=== PATIENT | male | born 1970 | race Hispanic/Latino ===

== ENCOUNTER 2017-10-07 07:07 | Inpatient (IN) | payer OTHER ==
[2017-10-07 07:59] LABS: Basophils # (Auto) 0.1 K/mm3 (0.0-0.1); Basophils % (Auto) 0.7 % (0.0-1.8); Eosinophils # (Auto) 0.1 K/mm3 (0.0-0.4); Eosinophils % (Auto) 0.8 % (0.0-4.3); Hematocrit 39.4 % (35.5-45.6); Hemoglobin 13.3 gm/dl (11.8-15.2); Lymphocytes # (Auto) 1.4 K/mm3 (1.2-5.4); Mean Corpuscular HGB Conc 34 % (32-34); Mean Corpuscular Hemoglobin 31 pg (28-32); Mean Corpuscular Volume 92 fl (84-94); Platelet Count 329 K/mm3 (140-440); Red Cell Distribution Width 13.8 % (13.2-15.2)
[2017-10-07 08:13] LABS: Calcium 7.2 mg/dL (8.4-10.2)
[2017-10-07 08:42] LABS: Bilirubin,Urine NEG (Negative); Blood,Urine SM (Negative); Color,Urine Yellow (Yellow); Hyaline Casts,Urine 55 /LPF; Mucus,Urine 2+ /HPF; Nitrite,Urine NEG (Negative); Sperm,Urine 1+ /HPF (NP); Urobilinogen,Urine < 2.0 mg/dL (<2.0)
[2017-10-07 08:54] LABS: Protein,Urine >500 mg/dL (Negative)
[2017-10-07] MEDS ORDERED: APRESOLINE IV ONE (08:56)
[2017-10-07] MEDS ORDERED: D50W (25GM) Syringe IV ONE (08:59)
--- NOTE | 2017-10-07 09:02 | Emergency Department Report ---
HPI - General Chief Complaint: Extremity Injury, Lower Time Seen by Provider: 10/07/17 08:31 - HPI HPI: The patient's 46-year-old male with diabetes, presents for evaluation of pain to toes of the left foot. The patient reports constant and severe pain to toes of the left foot for the past 2 weeks, worsened with weightbearing, throbbing in quality, and associated with paresthesia and loss of color and darkening of toes of the left foot. He denies, injury to the toes, fever, chills, night sweats, purulent drainage or discharge. ED Past Medical Hx - Past Medical History Previous Medical History?: Yes Hx Diabetes: Yes - Surgical History Past Surgical History?: Yes Additional Surgical History: Left ankle surgery - Social History Smoking Status: Current Every Day Smoker Substance Use Type: Prescribed ED Review of Systems ROS: Stated complaint: LT FOOT PAIN Other details as noted in HPI Constitutional: denies: fever ENT: denies: throat or neck pain Respiratory: denies: cough, shortness of breath Cardiovascular: denies: chest pain Endocrine: denies unexplained weight loss or gain Gastrointestinal: denies: abdominal pain, nausea Genitourinary: denies: dysuria Musculoskeletal: left 4th and 5th digit pain and parasthesia denies: leg swelling Skin: denies: rash Neurological: denies: headache Hematological/Lymphatic: denies: easy bleeding or easy bruising Psych: denies sadness or hopelessness Physical Exam - Physical Exam Vital Signs: Vital Signs 10/07/17 10/07/17 10/07/17 04:08 04:16 04:30 Temperature Pulse Rate 96 H 90 91 H Respiratory 9 L 10 L 11 L Rate Blood Pressure 175/94 175/94 175/94 Blood Pressure [Right] O2 Sat by Pulse 100 92 Oximetry 10/07/17 10/07/17 10/07/17 04:46 05:00 05:16 Temperature Pulse Rate 99 H 90 88 Respiratory 10 L 9 L 11 L Rate Blood Pressure 175/94 175/94 173/91 Blood Pressure [Right] O2 Sat by Pulse 100 100 Oximetry 10/07/17 10/07/17 10/07/17 05:30 05:46 06:00 Temperature Pulse Rate 90 89 92 H Respiratory 11 L 10 L 11 L Rate Blood Pressure 173/91 173/91 188/98 Blood Pressure [Right] O2 Sat by Pulse 100 100 100 Oximetry 10/07/17 10/07/17 10/07/17 06:16 07:41 07:59 Temperature 98.5 F Pulse Rate 89 86 Respiratory 11 L 16 Rate Blood Pressure 187/100 175/96 218/109 Blood Pressure [Right] O2 Sat by Pulse 95 Oximetry 10/07/17 10/07/17 10/07/17 08:00 08:20 08:24 Temperature 98.2 F Pulse Rate 86 Respiratory 18 Rate Blood Pressure 213/105 158/75 Blood Pressure 157/75 [Right] O2 Sat by Pulse 100 Oximetry Physical Exam: General: well-nourished, well-developed, no acute distress Head: Normocephalic, atraumatic Eyes: normal sclera ENT: Mucous membranes are pale and dry Neck: No neck stiffness, no cervical adenopathy Respiratory: Breath sounds equal bilaterally, no wheezing, rales, or rhonchi Cardio: S1 and S2 present, no murmurs, rubs, gallops, capillary refill is delayed Abdomen: Normoactive bowel sounds, soft abdomen, no rigidity, no guarding or rebound tenderness Musc: Severe guarding and rigidity of the left fourth and fifth toes present, no capillary refill and sensation loss present to the toes as well, no purulent drainage or discharge Skin: No rash Neuro: no facial drooping, normal speech Psych: Normal affect ED Course Vital Signs 10/07/17 10/07/17 10/07/17 04:08 04:16 04:30 Temperature Pulse Rate 96 H 90 91 H Respiratory 9 L 10 L 11 L Rate Blood Pressure 175/94 175/94 175/94 Blood Pressure [Right] O2 Sat by Pulse 100 92 Oximetry 10/07/17 10/07/17 10/07/17 04:46 05:00 05:16 Temperature Pulse Rate 99 H 90 88 Respiratory 10 L 9 L 11 L Rate Blood Pressure 175/94 175/94 173/91 Blood Pressure [Right] O2 Sat by Pulse 100 100 Oximetry 10/07/17 10/07/17 10/07/17 05:30 05:46 06:00 Temperature Pulse Rate 90 89 92 H Respiratory 11 L 10 L 11 L Rate Blood Pressure 173/91 173/91 188/98 Blood Pressure [Right] O2 Sat by Pulse 100 100 100 Oximetry 10/07/17 10/07/17 10/07/17 06:16 07:41 07:59 Temperature 98.5 F Pulse Rate 89 86 Respiratory 11 L 16 Rate Blood Pressure 187/100 175/96 218/109 Blood Pressure [Right] O2 Sat by Pulse 95 Oximetry 10/07/17 10/07/17 10/07/17 08:00 08:20 08:24 Temperature 98.2 F Pulse Rate 86 Respiratory 18 Rate Blood Pressure 213/105 158/75 Blood Pressure 157/75 [Right] O2 Sat by Pulse 100 Oximetry ED Medical Decision Making - Lab Data Result diagrams: 10/07/17 07:46 10/07/17 07:46 - Medical Decision Making The patient was seen and examined by myself. The patient is placed on a ground crew supervisor and continuous pulse ox. On initial evaluation, the patient was found to be in no distress. Evaluation orders were placed. The patient is given pain medicine and IV hydralazine for treatment of elevated blood pressure. Lab results revealed low glucose of 51, elevated BUN of 35, elevated creatinine 1.5, BUN/creatinine ratio greater than 2:1, consistent with exam findings of dehydration.. The patient was given a by mouth challenge. Repeat Accu-Chek reveals persistence of hypoglycemia. The patient given an amp of D50 but the patient remained with hypoglycemia. The on-call hospitalist service was contacted. They agreed to admit the patient for further treatment and close monitoring. The ED admit order was placed. The patient was admitted in guarded condition. Critical care attestation.: If time is entered above; I have spent that time in minutes in the direct care of this critically ill patient, excluding procedure time. ED Disposition Clinical Impression: Hypertensive urgency, Hypoglycemia, Toe necrosis, Acute pain of left foot, Gangrene of toe of left foot Disposition: OP ADMIT IP TO THIS HOSP Is pt being admited?: Yes Does the pt Need Aspirin: Yes Condition: Fair Referrals: PRIMARY CARE [Primary Care Provider] - 3-5 Days Time of Disposition: 08:58
[2017-10-07] MEDS ORDERED: BABY ASPIRIN PO ONE (09:05)
[2017-10-07 09:31] LABS: INR 0.82 (0.87-1.13)
[2017-10-07 09:32] LABS: Partial Thromboplastin Time 31.8 Sec. (24.2-36.6)
[2017-10-07] MEDS ORDERED: ZOFRAN IV PRN (10:27)
[2017-10-07] MEDS ORDERED: D50W (25GM) Syringe IV PRN (10:28)
--- NOTE | 2017-10-07 10:46 | History and Physical Report ---
History of Present Illness Date of examination: 10/07/17 Date of admission: 10/07/17 09:04 Chief complaint: Left foot pains Mother at bedside History of present illness: Patient is a 46-year-old man with a history of insulin-dependent diabetes mellitus (first visit here), he takes 20 units in the morning/20 units in the evening of 70/30 insulin, hypertension (not on any medications) and tobacco dependency who presents ti [facility] with worsen severe throbbing constant left foot pains x 1 day but started 2-3 weeks ago, radiating up the leg, worse with weightbearing without any relieving factors associated with loss of sensation except to cold floors. This all started when he changed to a different shoe and it was rubbing against his small left toe. Patient denies any fevers, chills, nausea vomiting abdominal pain severe headaches. The pain is so intense , he has lost his appetite; therefore, his sugars on presentation was 51. He has no pcp. Past Medical History: Yes, dm and htn Surgical History: Left ankle surgery Social History: Current Every Day Smoker 2-3 packs a day (counseling against this done), he denies alcohol or drugs Family History: HTN, mother had heart attack in her late 40s, father with DM, ROS: Constitutional: denies: fever, +loss of appetite ENT: denies: throat or neck pain Respiratory: denies: cough, shortness of breath Cardiovascular: denies: chest pain Endocrine: denies unexplained weight loss or gain Gastrointestinal: denies: abdominal pain, nausea Genitourinary: denies: dysuria Musculoskeletal: leg swelling, left foot pain Skin: stomach rash and leg rash, "looks like ezcema" Neurological: denies: headache Hematological/Lymphatic: denies: easy bleeding or easy bruising Psych: denies sadness or hopelessness, SI/HI Medications and Allergies Allergies Allergy/AdvReac Type Severity Reaction Status Date / Time No Known Allergies Allergy Unverified 10/07/17 07:41 Active Meds: Active Medications Acetaminophen (Tylenol) 325 mg PO Q6H PRN PRN Reason: Pain, Mild (1-3) Acetaminophen/Hydrocodone Bitart ([place] 5/325) 1 each PO Q4H PRN PRN Reason: Pain, Moderate (4-6) Dextrose (D50w (25gm) Syringe) 50 ml IV PRN PRN PRN Reason: Hypoglycemia Heparin Sodium (Porcine) (Heparin) 5,000 unit SUB-Q Q12HR [facility] Dextrose/Sodium Chloride (D5/0.45ns) 1,000 mls @ 100 mls/hr IV DIRECT TANIYA Insulin Aspart (Novolog) 0 units SUB-Q Q4H TANIYA PRN Reason: Protocol Stop: 10/07/17 22:00 Morphine Sulfate (Morphine) 2 mg IV Q4H PRN PRN Reason: Pain , Severe (7-10) Ondansetron HCl (Zofran) 4 mg IV Q4H PRN PRN Reason: Nausea And Vomiting Pantoprazole Sodium (Protonix) 40 mg PO QDAY TANIYA Zolpidem Tartrate (Ambien) 5 mg PO QHS PRN PRN Reason: Sleep Exam - Physical Exam Narrative exam: GEN: WDWN, unkempt man, NAD, AWAKE, ALERT, ORIENTATED x 3 HEENT: NCAT, EOMI, PERRL, OP Clear NECK: supple, no adenopathy, no thyromegaly, no JVD CVS/HEART: RRR, NORMAL S1S2, NO JVD, pulses present bilaterally, diminished left petal pulses CHEST/LUNGS: CTA B, Symmetrical chest expansion, good air entry bilaterally GI/Abdomen: soft, NTND, good bowel sounds, no guarding or rebound /Bladder: no suprapubic tenderness, no CVA or paraspinal tenderness EXT/Skin: ble leg edema, coin plague on stomach, chronic venous stasis legs, left toes gangrene 5th and 4th, other necrotic tips on the rest of left toes also, red, warm midfoot MSK: FROM x 4 Neuro: CN 2-12 grossly intact, significant sensory deficits legs, absent ankle jerk reflex bilateral Psych: calm - Constitutional Vitals: Temp Pulse Resp BP Pulse Ox 98.2 F 86 18 197/107 100 10/07/17 08:24 10/07/17 09:20 10/07/17 08:55 10/07/17 09:20 10/07/17 08:24 Results - Labs CBC & Chem 7: 10/07/17 07:46 10/07/17 07:46 Labs: Abnormal lab results 10/07/17 10/07/17 10/07/17 Range/Units 07:46 07:46 08:00 Howard % (Auto) 12.0 H (0.0-7.3) % Howard # 1.0 H (0.0-0.8) K/mm3 PT (12.2-14.9) Sec. INR (0.87-1.13) Carbon Dioxide 31 H (22-30) mmol/L BUN 35 H (9-20) mg/dL Glucose 51 L (75-100) mg/dL POC Glucose (70-105) Calcium 7.2 L (8.4-10.2) mg/dL Urine WBC (Auto) 10.0 H (0.0-6.0) /HPF 10/07/17 10/07/17 10/07/17 Range/Units 08:33 09:05 09:05 Howard % (Auto) (0.0-7.3) % Howard # (0.0-0.8) K/mm3 PT 11.7 L (12.2-14.9) Sec. INR 0.82 L (0.87-1.13) Carbon Dioxide (22-30) mmol/L BUN (9-20) mg/dL Glucose (75-100) mg/dL POC Glucose 56 L 66 L (70-105) Calcium (8.4-10.2) mg/dL Urine WBC (Auto) (0.0-6.0) /HPF Assessment and Plan Patient is a 46-year-old man with a history of insulin-dependent diabetes mellitus (first visit here), he takes 20 units in the morning/20 units in the evening of 70/30 insulin, hypertension (not on any medications) and tobacco dependency who presents ti [facility] with worsen severe throbbing constant left foot pains x 1 day but started 2-3 weeks ago, radiating up the leg, worse with weightbearing without any relieving factors associated with loss of sensation except to cold floors. This all started when he changed to a different shoe and it was rubbing against his small left toe. Patient denies any fevers, chills, nausea vomiting abdominal pain severe headaches. The pain is so intense , he has lost his appetite; therefore, his sugars on presentation was 51. He has no pcp. -Severe PAD associated with DM with gangrene: consulted Vascular -Left foot cellulitis:, start iv vanc and get blood cultures -Uncontrolled IDDM with hypoglycemia: stop insulin, use ssi, start diet -Cr. is 1.5 without known baseline, suspect SHARLENE due to vasomotor nephropathy: treat with ivf, follow and monitor closely -Tobacco dependance: counseling done -DVT/GI prophylaxis: sq heparin and protonix full code
[2017-10-07] MEDS ORDERED: NOVOLOG SUB-Q SCH (11:00)
[2017-10-07] MEDS: NORVASC PO SCH (11:12)
[2017-10-07] MEDS ORDERED: MORPHINE IV PRN (12:02)
[2017-10-07] MEDS: D5/0.45NS 1,000 ML IV SCH (13:58)
[2017-10-07] MEDS: UNASYN/NS 1.5 GM/50 ML 1.5 GM/50 ML BAG IV SCH ×2 (13:59→21:14)
[2017-10-07] MEDS: HEPARIN SUB-Q SCH (13:59)
[2017-10-07] MEDS: PROTONIX PO SCH (13:59)
[2017-10-07] MEDS: NOVOLOG SUB-Q SCH ×3 (15:06→21:18)
--- NOTE | 2017-10-07 16:30 | Consultation ---
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 He was admitted by the hospitalist service for diabetes with peripheral vascular occlusive disease cellulitis and gangrene and we were asked to see him in consultation with recommendations for therapy Past History Past Medical History: diabetes, hypertension Past Surgical History: No surgical history Social history: lives with family, smoking Family history: diabetes, hypertension Medications and Allergies Allergies Allergy/AdvReac Type Severity Reaction Status Date / Time No Known Allergies Allergy Unverified 10/07/17 07:41 Active Meds: Active Medications Acetaminophen (Tylenol) 325 mg PO Q6H PRN PRN Reason: Pain, Mild (1-3) Acetaminophen/Hydrocodone Bitart ([place] 5/325) 1 each PO Q4H PRN PRN Reason: Pain, Moderate (4-6) Amlodipine Besylate (Norvasc) 10 mg PO QDAY [facility] Last Admin: 10/07/17 11:12 Dose: 10 mg Dextrose (D50w (25gm) Syringe) 50 ml IV PRN PRN PRN Reason: Hypoglycemia Heparin Sodium (Porcine) (Heparin) 5,000 unit SUB-Q Q12H [facility] Last Admin: 10/07/17 13:59 Dose: 5,000 unit Hydralazine HCl (Apresoline) 10 mg IV Q4H PRN PRN Reason: Blood Pressure Dextrose/Sodium Chloride (D5/0.45ns) 1,000 mls @ 100 mls/hr IV DIRECT [facility] Last Admin: 10/07/17 13:58 Dose: 100 mls/hr Ampicillin Sodium/Sulbactam Sodium (Unasyn/Ns 1.5 Gm/50 Ml) 1.5 gm in 50 mls @ 100 mls/hr IV Q6H [facility] PRN Reason: Protocol Last Admin: 10/07/17 13:59 Dose: 100 mls/hr Insulin Aspart (Novolog) 0 units SUB-Q Q4HR [facility] PRN Reason: Protocol Last Admin: 10/07/17 15:06 Dose: Not Given Morphine Sulfate (Morphine) 2 mg IV Q4H PRN PRN Reason: Pain , Severe (7-10) Ondansetron HCl (Zofran) 4 mg IV Q4H PRN PRN Reason: Nausea And Vomiting Pantoprazole Sodium (Protonix) 40 mg PO QDAY TANIYA Last Admin: 10/07/17 13:59 Dose: 40 mg Zolpidem Tartrate (Ambien) 5 mg PO QHS PRN PRN Reason: Sleep Review of Systems Constitutional: fever, fatigue, malaise, poor appetite, chronic pain Ears, nose, mouth and throat: dental pain Cardiovascular: claudication (left calf that fairly long distances), high blood pressure, decreased exercise tolerance Respiratory: cough, dyspnea on exertion Musculoskeletal: leg numbness/tingling, gait dysfunction Integumentary: blisters, darkening of skin, foot/leg ulcers Neurological: numbness Exam - Physical Exam Narrative exam: He is a slender slightly disheveled 46-year-old male in no acute distress. HEENT examination shows anicteric sclera. He is edentulous. Neck is soft and supple. There are bilateral carotid bruits versus transmitted heart sounds noted. Examination is normal. Upper extremity pulses are equal. There is no tobacco staining in the intertriginous areas. Lungs are clear to auscultation and percussion. Cardiac examination reveals a regular rate and rhythm. There may be a very soft systolic murmur but it does not appear consistent with the auscultative examination in his neck. Abdomen is scaphoid without hepatosplenomegaly. No abdominal aneurysm. Pulses are present. Popliteal pulses are present on the right. None on the left. A faint dorsalis pedis may be palpable on the right. No pedal pulses are palpable on the left. He has dry gangrene of his fifth digit on the left foot the distal one third of the fourth digit and perioperative brachial areas on the second digit all on the left foot. Is no odor. There is no drainage. Some modest redness in the forefoot is noted. - Constitutional Vitals: Temp Pulse Resp BP Pulse Ox 98.7 F 79 20 170/88 94 10/07/17 12:46 10/07/17 12:46 10/07/17 12:46 10/07/17 12:46 10/07/17 12:46 Results - Labs CBC & Chem 7: 10/07/17 07:46 10/07/17 07:46 Labs: Abnormal lab results 10/07/17 10/07/17 10/07/17 Range/Units 07:46 07:46 08:00 [place] % (Auto) 12.0 H (0.0-7.3) % [place] # 1.0 H (0.0-0.8) K/mm3 PT (12.2-14.9) Sec. INR (0.87-1.13) Carbon Dioxide 31 H (22-30) mmol/L BUN 35 H (9-20) mg/dL Glucose 51 L (75-100) mg/dL POC Glucose (70-105) Calcium 7.2 L (8.4-10.2) mg/dL Urine WBC (Auto) 10.0 H (0.0-6.0) /HPF 10/07/17 10/07/17 10/07/17 Range/Units 08:33 09:05 09:05 [place] % (Auto) (0.0-7.3) % [place] # (0.0-0.8) K/mm3 PT 11.7 L (12.2-14.9) Sec. INR 0.82 L (0.87-1.13) Carbon Dioxide (22-30) mmol/L BUN (9-20) mg/dL Glucose (75-100) mg/dL POC Glucose 56 L 66 L (70-105) Calcium (8.4-10.2) mg/dL Urine WBC (Auto) (0.0-6.0) /HPF Assessment and Plan - Patient Problems (1) Gangrene of toe of left foot Current Visit: Yes Status: Acute Plan to address problem: The dry gangrene is clearly been present longer than 2 weeks and he has nonpalpable pulses. He will need angiography and possible revascularization. We'll need to hydrate name of any contrast-induced nephropathy. Also needs antibiotics for potential cellulitic changes in his foot. Also obtain noninvasive studies to document the level of vascular compromise. (2) Carotid artery bruit Onset Date: Unknown Current Visit: Yes Status: Chronic Qualifiers: Laterality: bilateral Qualified Code(s): R09.89 - Other specified symptoms and signs involving the circulatory and respiratory systems Plan to address problem: He has bilateral carotid bruits and is at high risk for carotid artery disease with his hypertension, diabetes, and heavy tobacco use. Carotid duplex will be ordered. (3) Tobacco abuse Onset Date: ~10/02/87 Current Visit: Yes Status: Chronic Plan to address problem: He may benefit from tobacco cessation counseling and possible nicotine patch
[2017-10-07] MEDS: NORCO 5/325 PO PRN (17:06)
[2017-10-07] MEDS: TYLENOL PO PRN (21:21)
[2017-10-07] MEDS ORDERED: AMBIEN PO PRN (22:00)
[2017-10-08] MEDS: HEPARIN SUB-Q SCH ×2 (01:54→12:11)
[2017-10-08] MEDS: UNASYN/NS 1.5 GM/50 ML 1.5 GM/50 ML BAG IV SCH ×4 (01:54→20:21)
[2017-10-08] MEDS: APRESOLINE IV PRN ×2 (02:29→06:26)
[2017-10-08] MEDS: D5/0.45NS 1,000 ML IV SCH (06:19)
[2017-10-08] MEDS: NOVOLOG SUB-Q SCH ×4 (06:19→22:28)
[2017-10-08 07:40] LABS: Hemoglobin 13.2 gm/dl (11.8-15.2); Mean Corpuscular HGB Conc 34 % (32-34); Mean Corpuscular Hemoglobin 31 pg (28-32); Mean Corpuscular Volume 91 fl (84-94); Platelet Count 299 K/mm3 (140-440); Red Blood Count 4.29 M/mm3 (3.65-5.03); Red Cell Distribution Width 13.6 % (13.2-15.2)
[2017-10-08 07:52] LABS: Calcium 6.9 mg/dL (8.4-10.2); Chol/HDL Ratio 6.55 %; INR 0.88 (0.87-1.13)
[2017-10-08 07:53] LABS: Partial Thromboplastin Time 33.7 Sec. (24.2-36.6)
[2017-10-08] MEDS: PROTONIX PO SCH (12:11)
[2017-10-08] MEDS: NORVASC PO SCH (12:11)
[2017-10-08] MEDS: NORCO 5/325 PO PRN (12:15)
[2017-10-08] MEDS ORDERED: D50W (25GM) Syringe IV PRN (12:52)
--- NOTE | 2017-10-08 12:52 | Progress Note ---
Assessment and Plan Assessment and plan: Patient is a 46-year-old man with a history of insulin-dependent diabetes mellitus (first visit here), he takes 20 units in the morning/20 units in the evening of 70/30 insulin, hypertension (not on any medications) and tobacco dependency who [facility] with worsen severe throbbing constant left foot pains x 1 day but started 2-3 weeks ago, radiating up the leg, worse with weightbearing without any relieving factors associated with loss of sensation except to cold floors. This all started when he changed to a different shoe and it was rubbing against his small left toe. Patient denies any fevers, chills, nausea vomiting abdominal pain severe headaches. The pain is so intense , he has lost his appetite; therefore, his sugars on presentation was 51. He has no pcp. -Severe PAD associated with DM with gangrene: consulted Vascular -Left foot cellulitis:, start iv vanc and get blood cultures -Uncontrolled IDDM with hypoglycemia, resolved hypoglycemia, now hyperglycemic: start ssi -Cr. is 1.5 without known baseline, suspect SHARLENE due to vasomotor nephropathy: treat with ivf, follow and monitor closely -Tobacco dependance: counseling done -DVT/GI prophylaxis: sq heparin and protonix full code per Dr. Christensen: Vascular surgeon: "(1) Gangrene of toe of left foot Current Visit: Yes Status: Acute Plan to address problem: The dry gangrene is clearly been present longer than 2 weeks and he has nonpalpable pulses. He will need angiography and possible revascularization. We'll need to hydrate name of any contrast-induced nephropathy. Also needs antibiotics for potential cellulitic changes in his foot. Also obtain noninvasive studies to document the level of vascular compromise. (2) Carotid artery bruit Onset Date: Unknown Current Visit: Yes Status: Chronic Qualifiers: Laterality: bilateral Qualified Code(s): R09.89 - Other specified symptoms and signs involving the circulatory and respiratory systems Plan to address problem: He has bilateral carotid bruits and is at high risk for carotid artery disease with his hypertension, diabetes, and heavy tobacco use. Carotid duplex will be ordered. (3) Tobacco abuse Onset Date: ~10/02/87 Current Visit: Yes Status: Chronic Plan to address problem: He may benefit from tobacco cessation counseling and possible nicotine patch" History Interval history: Patient was seen and examined. Follow-up on current diagnosis. Overnight uneventful. Patient denies any chest pain, shortness breath, nausea/vomiting or severe headaches. Imaging, nursing note, chart, labs and old chart reviewed. Discussed with patient. Daughter at bedside, called me a Rapper when I first entered the room. Hospitalist Physical - Physical exam Narrative exam: GEN: WDWN, unkempt man, NAD, AWAKE, ALERT, ORIENTATED x 3 HEENT: NCAT, EOMI, PERRL, OP Clear NECK: supple, no adenopathy, no thyromegaly, no JVD CVS/HEART: RRR, NORMAL S1S2, NO JVD, pulses present bilaterally, diminished left petal pulses CHEST/LUNGS: CTA B, Symmetrical chest expansion, good air entry bilaterally GI/Abdomen: soft, NTND, good bowel sounds, no guarding or rebound /Bladder: no suprapubic tenderness, no CVA or paraspinal tenderness EXT/Skin: ble leg edema, coin plague on stomach, chronic venous stasis legs, left toes gangrene 5th and 4th, other necrotic tips on the rest of left toes also, red, warm midfoot MSK: FROM x 4 Neuro: CN 2-12 grossly intact, significant sensory deficits legs, absent ankle jerk reflex bilateral Psych: calm - Constitutional Vitals: Temp Pulse Resp BP Pulse Ox 98.6 F 95 H 20 168/84 94 10/08/17 12:35 10/08/17 12:35 10/08/17 12:35 10/08/17 12:35 10/08/17 12:35 Results - Labs CBC & Chem 7: 10/08/17 06:51 10/08/17 06:51 Labs: Laboratory Last Values WBC 9.0 K/mm3 (4.5-11.0) 10/08/17 06:51 RBC 4.29 M/mm3 (3.65-5.03) 10/08/17 06:51 Hgb 13.2 gm/dl (11.8-15.2) 10/08/17 06:51 Hct 39.0 % (35.5-45.6) 10/08/17 06:51 MCV 91 fl (84-94) 10/08/17 06:51 MCH 31 pg (28-32) 10/08/17 06:51 MCHC 34 % (32-34) 10/08/17 06:51 RDW 13.6 % (13.2-15.2) 10/08/17 06:51 Plt Count 299 K/mm3 (140-440) 10/08/17 06:51 Lymph % (Auto) 17.0 % (13.4-35.0) 10/07/17 07:46 [place] % (Auto) 12.0 % (0.0-7.3) H 10/07/17 07:46 Eos % (Auto) 0.8 % (0.0-4.3) 10/07/17 07:46 Baso % (Auto) 0.7 % (0.0-1.8) 10/07/17 07:46 Lymph # 1.4 K/mm3 (1.2-5.4) 10/07/17 07:46 [place] # 1.0 K/mm3 (0.0-0.8) H 10/07/17 07:46 Eos # 0.1 K/mm3 (0.0-0.4) 10/07/17 07:46 Baso # 0.1 K/mm3 (0.0-0.1) 10/07/17 07:46 Seg Neutrophils % 69.5 % (40.0-70.0) 10/07/17 07:46 Seg Neutrophils # 5.6 K/mm3 (1.8-7.7) 10/07/17 07:46 PT 12.4 Sec. (12.2-14.9) 10/08/17 06:51 INR 0.88 (0.87-1.13) 10/08/17 06:51 APTT 33.7 Sec. (24.2-36.6) 10/08/17 06:51 Sodium 139 mmol/L (137-145) 10/08/17 06:51 Potassium 4.0 mmol/L (3.6-5.0) 10/08/17 06:51 Chloride 99.6 mmol/L (98-107) 10/08/17 06:51 Carbon Dioxide 27 mmol/L (22-30) 10/08/17 06:51 Anion Gap 16 mmol/L 10/08/17 06:51 BUN 39 mg/dL (9-20) H 10/08/17 06:51 Creatinine 1.4 mg/dL (0.8-1.5) 10/08/17 06:51 Estimated GFR 54 ml/min 10/08/17 06:51 BUN/Creatinine Ratio 28 % 10/08/17 06:51 Glucose 254 mg/dL (75-100) H 10/08/17 06:51 POC Glucose 247 (70-105) H 10/08/17 06:22 Calcium 6.9 mg/dL (8.4-10.2) L 10/08/17 06:51 Magnesium 2.00 mg/dL (1.7-2.3) 10/08/17 06:51 Troponin T < 0.010 ng/mL (0.00-0.029) 10/07/17 17:58 Triglycerides 304 mg/dL (2-149) H 10/08/17 06:51 Cholesterol 262 mg/dL (50-199) H 10/08/17 06:51 LDL Cholesterol Direct 162 mg/dL (50-130) H 10/08/17 06:51 HDL Cholesterol 40 mg/dL (40-59) 10/08/17 06:51 Cholesterol/HDL Ratio 6.55 % 10/08/17 06:51 TSH 4.270 mlU/mL (0.270-4.200) H 10/08/17 06:51 Urine Color Yellow (Yellow) 10/07/17 08:00 Urine Turbidity Cloudy (Clear) 10/07/17 08:00 Urine pH 5.0 (5.0-7.0) 10/07/17 08:00 Ur Specific [place] 1.029 (1.003-1.030) 10/07/17 08:00 Urine Protein >500 mg/dL (Negative) 10/07/17 08:00 Urine Glucose (UA) 50 mg/dL (Negative) 10/07/17 08:00 Urine Ketones Neg mg/dL (Negative) 10/07/17 08:00 Urine Blood Sm (Negative) 10/07/17 08:00 Urine Nitrite Neg (Negative) 10/07/17 08:00 Urine Bilirubin Neg (Negative) 10/07/17 08:00 Urine Urobilinogen < 2.0 mg/dL (<2.0) 10/07/17 08:00 Ur Leukocyte Esterase Neg (Negative) 10/07/17 08:00 Urine WBC (Auto) 10.0 /HPF (0.0-6.0) H 10/07/17 08:00 Urine RBC (Auto) 17.0 /HPF (0.0-6.0) 10/07/17 08:00 U Epithel Cells (Auto) 4.0 /HPF (0-13.0) 10/07/17 08:00 Hyaline Casts 55 /LPF 10/07/17 08:00 Urine Mucus 2+ /HPF 10/07/17 08:00 Urine Sperm 1+ /HPF ([employer]) 10/07/17 08:00 Blood Type A POSITIVE 10/07/17 09:05 Antibody Screen Negative 10/07/17 09:05
--- NOTE | 2017-10-08 14:55 | Progress Note ---
Assessment and Plan - Patient Problems (1) Gangrene of toe of left foot Current Visit: Yes Status: Acute Plan to address problem: he needs angiogram. Had made nothing by mouth and scheduled in the [employer] for tomorrow. Possible intervention anticipate left superficial femoral artery occlusion. (2) Carotid artery bruit Onset Date: Unknown Current Visit: Yes Status: Chronic Qualifiers: Laterality: bilateral Qualified Code(s): R09.89 - Other specified symptoms and signs involving the circulatory and respiratory systems Plan to address problem: Medical management (3) Tobacco abuse Onset Date: ~10/02/87 Current Visit: Yes Status: Chronic Subjective Date of service: 10/08/17 Interval history: No new complaints had noninvasive studies done yesterday. Objective - Exam Narrative Exam: Dry gangrene unchanged. None invasive studies show left superficial femoral artery occlusion. 50-60% internal carotid artery stenosis bilaterally. - Constitutional Vitals: Vital Signs - 12hr 10/08/17 10/08/17 10/08/17 04:27 06:26 07:55 Temperature 98.5 F 98.7 F Pulse Rate 85 101 H Respiratory 18 18 Rate Blood Pressure 195/97 195/97 127/75 Blood Pressure [Right] O2 Sat by Pulse 94 93 Oximetry 10/08/17 10/08/17 10/08/17 08:57 11:00 12:35 Temperature 98.7 F 98.6 F Pulse Rate 98 H 92 H 95 H Respiratory 20 20 Rate Blood Pressure Blood Pressure 127/75 168/84 [Right] O2 Sat by Pulse 92 94 Oximetry - Labs CBC & Chem 7: 10/08/17 06:51 10/08/17 06:51 Labs: Abnormal lab results 10/07/17 10/07/17 10/08/17 Range/Units 14:44 21:20 06:22 BUN (9-20) mg/dL Glucose (75-100) mg/dL POC Glucose 123 H 170 H 247 H (70-105) Calcium (8.4-10.2) mg/dL Triglycerides (2-149) mg/dL Cholesterol (50-199) mg/dL LDL Cholesterol Direct (50-130) mg/dL TSH (0.270-4.200) mlU/mL Free T4 (0.76-1.46) ng/dL 10/08/17 10/08/17 10/08/17 Range/Units 06:51 06:51 13:23 BUN 39 H (9-20) mg/dL Glucose 254 H (75-100) mg/dL POC Glucose (70-105) Calcium 6.9 L (8.4-10.2) mg/dL Triglycerides 304 H (2-149) mg/dL Cholesterol 262 H (50-199) mg/dL LDL Cholesterol Direct 162 H (50-130) mg/dL TSH 4.270 H (0.270-4.200) mlU/mL Free T4 0.70 L (0.76-1.46) ng/dL
[2017-10-09] MEDS: UNASYN/NS 1.5 GM/50 ML 1.5 GM/50 ML BAG IV SCH ×4 (01:06→20:36)
[2017-10-09 06:13] LABS: Hematocrit 36.1 % (35.5-45.6); Hemoglobin 11.9 gm/dl (11.8-15.2); Mean Corpuscular HGB Conc 33 % (32-34); Mean Corpuscular Hemoglobin 30 pg (28-32); Mean Corpuscular Volume 91 fl (84-94); Platelet Count 320 K/mm3 (140-440); Red Blood Count 3.99 M/mm3 (3.65-5.03); Red Cell Distribution Width 13.3 % (13.2-15.2)
[2017-10-09 06:25] LABS: Calcium 6.9 mg/dL (8.4-10.2)
[2017-10-09] MEDS: NOVOLOG SUB-Q SCH ×7 (08:27→23:43)
--- NOTE | 2017-10-09 09:15 | Progress Note ---
Assessment and Plan Patient with a history PVD with digital gangrene on his left foot. Would continue aggressive rehydration over the next 24 hours. 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 Subjective Date of service: 10/09/17 Interval history: Patient with a history of PVD with left digital gangrene. His arterial ultrasound demonstrates SFA occlusion on that side. Pain initially was 1.5. Following hydration, the creatinine is elevated to 1.7. The patient complains of a crampy calf pain with ambulation. No other complaints at this time. Objective - Constitutional Vitals: Vital Signs - 12hr 10/09/17 10/09/17 10/09/17 01:04 04:30 08:26 Temperature 98.8 F 98.7 F Pulse Rate 91 H 83 85 Respiratory 18 20 Rate Blood Pressure 139/76 161/91 Blood Pressure [Right] O2 Sat by Pulse 92 91 Oximetry 10/09/17 08:50 Temperature 98.5 F Pulse Rate 80 Respiratory 18 Rate Blood Pressure Blood Pressure 167/84 [Right] O2 Sat by Pulse 92 Oximetry General appearance: Present: no acute distress - EENT Eyes: PERRL ENT: hearing intact - Neck Neck: supple, normal ROM - Breasts Breasts: deferred Extremities: abnormal (per HPI) - Gastrointestinal General gastrointestinal: Present: deferred Rectal Exam: deferred - Genitourinary Male genitourinary: deferred - Neurologic Neurologic: no focal deficits - Psychiatric Psychiatric: appropriate mood/affect, cooperative - Labs CBC & Chem 7: 10/09/17 05:08 10/09/17 05:08 Labs: Abnormal lab results 10/08/17 10/08/17 10/08/17 Range/Units 13:23 17:52 21:13 Sodium (137-145) mmol/L BUN (9-20) mg/dL Creatinine (0.8-1.5) mg/dL Glucose (75-100) mg/dL POC Glucose 492 H 471 H (70-105) Calcium (8.4-10.2) mg/dL Free T4 0.70 L (0.76-1.46) ng/dL 10/09/17 10/09/17 Range/Units 05:08 08:17 Sodium 136 L (137-145) mmol/L BUN 54 H (9-20) mg/dL Creatinine 1.7 H (0.8-1.5) mg/dL Glucose 278 H (75-100) mg/dL POC Glucose 229 H (70-105) Calcium 6.9 L (8.4-10.2) mg/dL Free T4 (0.76-1.46) ng/dL
[2017-10-09] MEDS: NORVASC PO SCH (09:43)
[2017-10-09] MEDS: PROTONIX PO SCH (09:43)
--- NOTE | 2017-10-09 10:58 | Progress Note ---
Assessment and Plan Assessment and plan: Patient is a 46-year-old man with a history of insulin-dependent diabetes mellitus (first visit here), he takes 20 units in the morning/20 units in the evening of 70/30 insulin, hypertension (not on any medications) and tobacco dependency who presents ti [facility] ED with worsen severe throbbing constant left foot pains x 1 day but started 2-3 weeks ago, radiating up the leg, worse with weightbearing without any relieving factors associated with loss of sensation except to cold floors. This all started when he changed to a different shoe and it was rubbing against his small left toe. Patient denies any fevers, chills, nausea vomiting abdominal pain severe headaches. The pain is so intense , he has lost his appetite; therefore, his sugars on presentation was 51. He has no pcp. -Severe PAD associated with DM with gangrene: consulted Vascular -Left foot cellulitis:, start iv vanc and get blood cultures -Uncontrolled IDDM with hypoglycemia, resolved hypoglycemia, now hyperglycemic: start ssi -Cr. is 1.5 without known baseline, suspect SHARLENE due to vasomotor nephropathy: treat with ivf, follow and monitor closely -Tobacco dependance: counseling done -DVT/GI prophylaxis: sq heparin and protonix full code per Dr. Christensen: Vascular surgeon: "(1) Gangrene of toe of left foot Current Visit: Yes Status: Acute Plan to address problem: The dry gangrene is clearly been present longer than 2 weeks and he has nonpalpable pulses. He will need angiography and possible revascularization. We'll need to hydrate name of any contrast-induced nephropathy. Also needs antibiotics for potential cellulitic changes in his foot. Also obtain noninvasive studies to document the level of vascular compromise. (2) Carotid artery bruit Onset Date: Unknown Current Visit: Yes Status: Chronic Qualifiers: Laterality: bilateral Qualified Code(s): R09.89 - Other specified symptoms and signs involving the circulatory and respiratory systems Plan to address problem: He has bilateral carotid bruits and is at high risk for carotid artery disease with his hypertension, diabetes, and heavy tobacco use. Carotid duplex will be ordered. (3) Tobacco abuse Onset Date: ~10/02/87 Current Visit: Yes Status: Chronic Plan to address problem: He may benefit from tobacco cessation counseling and possible nicotine patch" 10/09/17: Cr up to 1.7, will consult Nephrology. Once Cr. is less than 1.6 then angiography History Interval history: Patient was seen and examined. Follow-up on current diagnosis. Overnight uneventful. Patient denies any chest pain, shortness breath, nausea/vomiting or severe headaches. Imaging, nursing note, chart, labs and old chart reviewed. Discussed with patient. Daughter at bedside, called me a Rapper when I first entered the room. Hospitalist Physical - Physical exam Narrative exam: GEN: WDWN, unkempt man, NAD, AWAKE, ALERT, ORIENTATED x 3 HEENT: NCAT, EOMI, PERRL, OP Clear NECK: supple, no adenopathy, no thyromegaly, no JVD CVS/HEART: RRR, NORMAL S1S2, NO JVD, pulses present bilaterally, diminished left petal pulses CHEST/LUNGS: CTA B, Symmetrical chest expansion, good air entry bilaterally GI/Abdomen: soft, NTND, good bowel sounds, no guarding or rebound /Bladder: no suprapubic tenderness, no CVA or paraspinal tenderness EXT/Skin: ble leg edema, coin plague on stomach, chronic venous stasis legs, left toes gangrene 5th and 4th, other necrotic tips on the rest of left toes also, red, warm midfoot MSK: FROM x 4 Neuro: CN 2-12 grossly intact, significant sensory deficits legs, absent ankle jerk reflex bilateral Psych: calm - Constitutional Vitals: Temp Pulse Resp BP Pulse Ox 98.5 F 80 18 167/84 92 10/09/17 08:50 10/09/17 08:50 10/09/17 08:50 10/09/17 08:50 10/09/17 08:50 General appearance: Present: no acute distress Results - Labs CBC & Chem 7: 10/09/17 05:08 10/09/17 05:08 Labs: Laboratory Last Values WBC 8.8 K/mm3 (4.5-11.0) 10/09/17 05:08 RBC 3.99 M/mm3 (3.65-5.03) 10/09/17 05:08 Hgb 11.9 gm/dl (11.8-15.2) 10/09/17 05:08 Hct 36.1 % (35.5-45.6) 10/09/17 05:08 MCV 91 fl (84-94) 10/09/17 05:08 MCH 30 pg (28-32) 10/09/17 05:08 MCHC 33 % (32-34) 10/09/17 05:08 RDW 13.3 % (13.2-15.2) 10/09/17 05:08 Plt Count 320 K/mm3 (140-440) 10/09/17 05:08 Lymph % (Auto) 17.0 % (13.4-35.0) 10/07/17 07:46 [place] % (Auto) 12.0 % (0.0-7.3) H 10/07/17 07:46 Eos % (Auto) 0.8 % (0.0-4.3) 10/07/17 07:46 Baso % (Auto) 0.7 % (0.0-1.8) 10/07/17 07:46 Lymph # 1.4 K/mm3 (1.2-5.4) 10/07/17 07:46 [place] # 1.0 K/mm3 (0.0-0.8) H 10/07/17 07:46 Eos # 0.1 K/mm3 (0.0-0.4) 10/07/17 07:46 Baso # 0.1 K/mm3 (0.0-0.1) 10/07/17 07:46 Seg Neutrophils % 69.5 % (40.0-70.0) 10/07/17 07:46 Seg Neutrophils # 5.6 K/mm3 (1.8-7.7) 10/07/17 07:46 PT 12.4 Sec. (12.2-14.9) 10/08/17 06:51 INR 0.88 (0.87-1.13) 10/08/17 06:51 APTT 33.7 Sec. (24.2-36.6) 10/08/17 06:51 Sodium 136 mmol/L (137-145) L 10/09/17 05:08 Potassium 4.2 mmol/L (3.6-5.0) 10/09/17 05:08 Chloride 98.6 mmol/L (98-107) 10/09/17 05:08 Carbon Dioxide 26 mmol/L (22-30) 10/09/17 05:08 Anion Gap 16 mmol/L 10/09/17 05:08 BUN 54 mg/dL (9-20) H 10/09/17 05:08 Creatinine 1.7 mg/dL (0.8-1.5) H 10/09/17 05:08 Estimated GFR 43 ml/min 10/09/17 05:08 BUN/Creatinine Ratio 32 % 10/09/17 05:08 Glucose 278 mg/dL (75-100) H 10/09/17 05:08 POC Glucose 229 (70-105) H 10/09/17 08:17 Calcium 6.9 mg/dL (8.4-10.2) L 10/09/17 05:08 Magnesium 2.00 mg/dL (1.7-2.3) 10/08/17 06:51 Troponin T < 0.010 ng/mL (0.00-0.029) 10/07/17 17:58 Triglycerides 304 mg/dL (2-149) H 10/08/17 06:51 Cholesterol 262 mg/dL (50-199) H 10/08/17 06:51 LDL Cholesterol Direct 162 mg/dL (50-130) H 10/08/17 06:51 HDL Cholesterol 40 mg/dL (40-59) 10/08/17 06:51 Cholesterol/HDL Ratio 6.55 % 10/08/17 06:51 TSH 4.270 mlU/mL (0.270-4.200) H 10/08/17 06:51 Free T4 0.70 ng/dL (0.76-1.46) L 10/08/17 13:23 Urine Color Yellow (Yellow) 10/07/17 08:00 Urine Turbidity Cloudy (Clear) 10/07/17 08:00 Urine pH 5.0 (5.0-7.0) 10/07/17 08:00 Ur Specific [place] 1.029 (1.003-1.030) 10/07/17 08:00 Urine Protein >500 mg/dL (Negative) 10/07/17 08:00 Urine Glucose (UA) 50 mg/dL (Negative) 10/07/17 08:00 Urine Ketones Neg mg/dL (Negative) 10/07/17 08:00 Urine Blood Sm (Negative) 10/07/17 08:00 Urine Nitrite Neg (Negative) 10/07/17 08:00 Urine Bilirubin Neg (Negative) 10/07/17 08:00 Urine Urobilinogen < 2.0 mg/dL (<2.0) 10/07/17 08:00 Ur Leukocyte Esterase Neg (Negative) 10/07/17 08:00 Urine WBC (Auto) 10.0 /HPF (0.0-6.0) H 10/07/17 08:00 Urine RBC (Auto) 17.0 /HPF (0.0-6.0) 10/07/17 08:00 U Epithel Cells (Auto) 4.0 /HPF (0-13.0) 10/07/17 08:00 Hyaline Casts 55 /LPF 10/07/17 08:00 Urine Mucus 2+ /HPF 10/07/17 08:00 Urine Sperm 1+ /HPF (LANGUAGE PATH) 10/07/17 08:00 Blood Type A POSITIVE 10/07/17 09:05 Antibody Screen Negative 10/07/17 09:05
--- NOTE | 2017-10-09 12:17 | Consultation ---
History of Present Illness - Reason for Consult Consult date: 10/09/17 acute renal failure, chronic renal failure, proteinuria - History of Present Illness The patient is a 46-year-old WM with medical history significant for Type 1 diabetes mellitus (since the age of 9 yrs) and heavy tobacco smoking presented to [facility] ED with severe left foot pain. He has had left foot pain for the past 2 -3 weeks ago, but gotten worse for one day prior to admission. The pain constant, throbbing, radiating up the leg, worse with weightbearing, without any relieving factors and associated with loss of sensation except to cold floors. His creatinine was 1.5 on admission and no prior creatinine value is available at this time. Patient doesn't check his blood sugar at home. He hasn 't seen a physician in several years. He is scheduled to undergo LE angiogram tomorrow. Past History Past Medical History: diabetes, hypertension Past Surgical History: No surgical history Social history: lives with family, smoking Family history: diabetes, hypertension Medications and Allergies Allergies Allergy/AdvReac Type Severity Reaction Status Date / Time No Known Allergies Allergy Unverified 10/07/17 07:41 Home Medications Medication Instructions Recorded Confirmed Last Taken Type No Known Home Medications [No 10/09/17 10/09/17 Unknown History Reported Home Medications] Active Meds: Active Medications Acetaminophen (Tylenol) 325 mg PO Q6H PRN PRN Reason: Pain, Mild (1-3) Last Admin: 10/07/17 21:21 Dose: 325 mg Acetaminophen/Hydrocodone Bitart ([place] 5/325) 1 each PO Q4H PRN PRN Reason: Pain, Moderate (4-6) Last Admin: 10/08/17 12:15 Dose: 1 each Amlodipine Besylate (Norvasc) 10 mg PO QDAY TANIYA Last Admin: 10/09/17 09:43 Dose: 10 mg Dextrose (D50w (25gm) Syringe) 50 ml IV PRN PRN PRN Reason: Hypoglycemia Hydralazine HCl (Apresoline) 10 mg IV Q4H PRN PRN Reason: Blood Pressure Last Admin: 10/08/17 06:26 Dose: 10 mg Ampicillin Sodium/Sulbactam Sodium (Unasyn/Ns 1.5 Gm/50 Ml) 1.5 gm in 50 mls @ 100 mls/hr IV Q6H TANIYA PRN Reason: Protocol Last Admin: 10/09/17 06:33 Dose: 100 mls/hr Sodium Chloride (Nacl 0.9% 1000 Ml) 1,000 mls @ 100 mls/hr IV DIRECT [facility] Insulin Aspart (Novolog) 0 units SUB-Q ACHS [facility] PRN Reason: Protocol Last Admin: 10/09/17 09:42 Dose: 3 units Morphine Sulfate (Morphine) 2 mg IV Q4H PRN PRN Reason: Pain , Severe (7-10) Ondansetron HCl (Zofran) 4 mg IV Q4H PRN PRN Reason: Nausea And Vomiting Pantoprazole Sodium (Protonix) 40 mg PO QDAY [facility] Last Admin: 10/09/17 09:43 Dose: 40 mg Zolpidem Tartrate (Ambien) 5 mg PO QHS PRN PRN Reason: Sleep Review of Systems Constitutional: no weight loss, no weight gain, no fever, no chills, no anorexia , no weakness, no malaise, no poor appetite Ears, nose, mouth and throat: no epistaxis Cardiovascular: edema, leg edema, no chest pain, no orthopnea, no syncope, no lightheadedness, no shortness of breath, no high blood pressure Respiratory: no cough, no cough with sputum, no hemoptysis, no shortness of breath, no dyspnea on exertion, no home oxygen Gastrointestinal: no abdominal pain, no nausea, no vomiting, no diarrhea, no melena Genitourinary Male: no dysuria, no hematuria Rectal: no bleeding Musculoskeletal: no gait dysfunction Integumentary: sores, darkening of skin, no jaundice Neurological: parathesias, numbness, tingling, no paralysis, no ataxia, no change in speech, no change in mentation, no confusion, no memory loss, no double vision, no loss of vision Psychiatric: no memory loss Endocrine: no weight change Hematologic/Lymphatic: no easy bleeding Exam - Vital Signs Vital signs: Vital Signs Pulse Resp BP Pulse Ox 96 H 9 L 175/94 100 10/07/17 04:08 10/07/17 04:08 10/07/17 04:08 10/07/17 04:08 - General Appearance General appearance: well-developed, well-nourished, appears stated age, other ( no distress) EENT: ATNC, PERRL, mucous membranes dry, hearing intact, vision intact Neck: Present: neck supple, trachea midline Respiratory: Clear to Ascultation Heart: regular, S1S2, no murmurs Gastrointestinal: Present: normoactive bowel sounds. Absent: tenderness, distended Integumentary: other (warm and erythematous LE skin, left foot with multiple toe dry gangrene ) Neurologic: no focal deficit, no asterixis, alert and oriented x3 Musculoskeletal: Present: other (1+ edema of both LEs) Psychiatric: mood/affect appropriate, cooperative Results - Lab Results 10/09/17 05:08 10/09/17 05:08 Most recent lab results Calcium 6.9 mg/dL (8.4-10.2) L 10/09/17 05:08 Magnesium 2.00 mg/dL (1.7-2.3) 10/08/17 06:51 - Image Kidney/bladder ultrasound: pending Assessment and Plan 1. Acute kidney injury: Mild SHARLENE superimposed on CKD stage 3. Continue IV fluids and monitor renal function. Renal US and Urine studies. 2. CKD stage 3 secondary to diabetic nephropathy. 3. Proteinuria: Urine protein quantification. 4. PAD: Followed by Vascular. Patient understood the risks of IV contrast and agreed to proceed. Start on Mucomyst. 5. Type 1 DM.
--- NOTE | 2017-10-09 14:58 | Ultrasound Report ---
ULTRASOUND RENAL INDICATION: Acute renal failure. COMPARISON: None similar. FINDINGS: Renal sonography suggests mild to moderately increased renal cortical echogenicity. Grossly preserved contours. No hydronephrosis. Small/minimal abdominal ascites and possible bilateral pleural effusions. RIGHT KIDNEY measures 13.3 x 6 x 6.3 cm with cortical thickness of 1.8 cm. LEFT KIDNEY estimated at 13.2 x 5.6 x 5.9 cm with cortical thickness of 1.4 cm. URINARY BLADDER suboptimally distended and assessed, though grossly unremarkable, in so far seen. CONCLUSION: Underlying medical renal disease, minimal ascites and possible bilateral pleural effusions sonographically without acute renal abnormality. Please correlate. Thank you for the opportunity to participate in this patient's care.
[2017-10-10] MEDS: UNASYN/NS 1.5 GM/50 ML 1.5 GM/50 ML BAG IV SCH ×4 (00:22→18:19)
[2017-10-10 03:02] LABS: Creatinine,Urine 49.2 mg/dL (0.1-20.0)
[2017-10-10 03:14] LABS: Protein/Creatinine Ratio,Urine 10.06
[2017-10-10] MEDS: TYLENOL PO PRN ×2 (04:30→16:50)
[2017-10-10] MEDS: NOVOLOG SUB-Q SCH ×4 (05:37→22:02)
[2017-10-10 05:49] LABS: Hematocrit 35.6 % (35.5-45.6); Mean Corpuscular HGB Conc 34 % (32-34); Mean Corpuscular Hemoglobin 30 pg (28-32); Mean Corpuscular Volume 90 fl (84-94); Platelet Count 313 K/mm3 (140-440); Red Blood Count 3.97 M/mm3 (3.65-5.03); Red Cell Distribution Width 13.3 % (13.2-15.2)
[2017-10-10] MEDS: NACL 0.9% 1000 ML 1,000 ML IV SCH (05:56)
[2017-10-10 06:33] LABS: Calcium 6.8 mg/dL (8.4-10.2)
--- NOTE | 2017-10-10 07:39 | Progress Note ---
Assessment and Plan 1. Acute kidney injury: Mild SHARLENE superimposed on CKD stage 3. Creatinine level is better today. Continue IV fluids and monitor renal function. 2. CKD stage 3 secondary to diabetic nephropathy. 3. Proteinuria: Secondary to Diabetic Nephropathy. Patient will need ACEI / ARB. 4. PAD: Angiogram today. Continue Mucomyst and IV fluids. 5. Type 1 DM. 6. Medical non-compliance: Compliance encouraged. Subjective Date of service: 10/10/17 Interval history: Patient is doing ok. Objective - Vital Signs Vital signs: Vital Signs - 12hr 10/09/17 10/09/17 10/09/17 19:41 20:55 20:57 Pulse Rate 80 Pulse Rate [ 86 Apical] Respiratory 20 Rate Respiratory 20 Rate [Left Foot ] O2 Sat by Pulse 98 Oximetry 10/10/17 10/10/17 04:30 05:30 Pulse Rate Pulse Rate [ Apical] Respiratory 18 20 Rate Respiratory Rate [Left Foot ] O2 Sat by Pulse Oximetry - General Appearance General appearance: well-developed, well-nourished, appears stated age, other ( no distress) EENT: ATNC, PERRL, mucous membranes moist, hearing intact, vision intact Neck: supple Respiratory: Present: Clear to Ascultation Cardiology: regular, S1S2, no murmurs Gastrointestinal: normoactive bowel sounds, no tenderness, no distended Integumentary: no rash Neurologic: no focal deficit, no asterixis, alert and oriented x3, CN 3-12 intact Musculoskeletal: other (2+ edema of both LEs noted) Psychiatric: mood/affect appropriate, cooperative - Lab 10/10/17 Unknown 10/10/17 Unknown Most recent lab results Calcium 6.8 mg/dL (8.4-10.2) L 10/10/17 Unknown Magnesium 2.00 mg/dL (1.7-2.3) 10/08/17 06:51 Urine Creatinine 49.2 mg/dL (0.1-20.0) H 10/10/17 00:23 Urine Total Protein 495 mg/dL (5-11.8) H 10/10/17 00:23
[2017-10-10] MEDS: MUCOMYST ORAL PO SCH ×2 (09:01→21:59)
[2017-10-10] MEDS ORDERED: NACL 0.9% 500 ML 500 ML ONE (09:55)
[2017-10-10] MEDS ORDERED: MUCOMYST ORAL PO SCH (10:00)
[2017-10-10] MEDS ORDERED: NACL 0.9% 500 ML 500 ML IV SCH (10:00)
[2017-10-10] MEDS ORDERED: XYLOCAINE 2% INFILTRATI ONE (10:25)
[2017-10-10] MEDS ORDERED: HEPARIN/NS 5000 UNIT/500ML(CATH LAB) 1,000 ML IR ONE (10:25)
[2017-10-10] MEDS ORDERED: HEPARIN 10,000 UNITS/10 ML ONE (10:26)
[2017-10-10] MEDS ORDERED: ANCEF/STERILE WATER 2 GM/20 ML 0 GM/0 ML SYRINGE IV ONE (10:27)
[2017-10-10] MEDS: VERSED ONE ×2 (10:35→11:30)
[2017-10-10] MEDS: SUBLIMAZE ONE ×2 (10:35→11:30)
[2017-10-10] MEDS ORDERED: TRIDIL DRIP 50MG/250ML 50 MG/250 ML BOTTLE ONE (11:00)
[2017-10-10] MEDS ORDERED: CALAN ONE (11:00)
[2017-10-10] MEDS ORDERED: NACL 0.9% 1000 ML 1,000 ML ONE (11:04)
--- NOTE | 2017-10-10 12:13 | Operative Report ---
Operative Report Operative Report: Procedure: 1. Distal aortography and bilateral common iliac arteriography 2. Arteriography of the left external iliac, common femoral, profunda, and superficial femoral arteries. 3. Arteriography of the left popliteal artery 4. Arteriography of the left infrapopliteal runoff. 5. Left pedal arteriography 6. Orbital atherectomy of the distal left superficial femoral artery 7. Angioplasty of the distal left superficial femoral artery with a drug balloon. 8. Mynxgrip closure device placement Date of Procedure: 10/10/2017 History/Indication: 46-year-old male presenting with gangrene of multiple left toes. Duplex evaluation demonstrated a significant decrease in velocity in the region of the distal superficial femoral/popliteal artery on the left. Physician: Edgar Longoria MD Technique/Procedural Details: The patient was placed in the supine position and prepped and draped in the usual sterile fashion. A timeout was performed. Local anesthetic was administered. Under direct ultrasound guidance, a 21-gauge needle was advanced into the right common femoral artery. The needle was exchanged over a mandrel wire for a 4 Cuban exchange dilator. Through this, a J-wire was advanced, and a 5 Cuban vascular sheath was placed. An Omni flush catheter was advanced over the J-wire to the aortic bifurcation and distal aortography and bilateral common iliac arteriography was performed. A glide advantage wire was used to pass the flush catheter over the aortic bifurcation. Arteriography of the left external, and common iliac arteries was performed. The flush catheter was then exchanged for a 4 Cuban vertebral catheter. Through the vertebral catheter, arteriography of the remainder of the left lower extremity was sequentially performed. The glide advantage wire was used to cross a left distal superficial femoral artery occlusion. Thereafter, a 6 Cuban x 65 cm Post destination sheath was placed in the left superficial femoral artery. The patient was then heparinized. And 035 Trailblazer catheter was advanced past the occlusion, and the glide advantage wire was then replaced with an .014 Viperwire. A 2.0 mm solid ground CSI orbital atherectomy device was used to perform atherectomy in the left distal superficial femoral artery. After repeat arteriography, the area was treated with a 5 mm Lurtonix drug- coated balloon. Final arteriography in this region was performed. A 65 cm sheath was replaced with a short 6 Cuban sheath. Arteriography of the right common femoral artery was performed to confirm placement of the sheath within the common femoral artery. Successful hemostasis was achieved with a 6 Cuban Mynx architectural engineering teacher closure device. Discussion: The distal aorta and bilateral common iliac arteries are normal in appearance. The left common femoral and profunda artery are also normal in appearance. The distal superficial artery has a complete occlusion with several collateral vessels in the vicinity. There is reconstitution of the distal superficial femoral artery approximately 3-4 cm distally. The primary runoff consists of the peroneal artery and anterior tibial artery. There are regions of mild stenoses in proximal aspects of both of these vessels , but no significant associated flow limitation. The left posterior tibial artery is not seen. In the pedal vasculature, the peroneal artery reconstitutes the posterior tibial artery circulation territory. The dorsalis pedis artery is grossly normal in appearance. The forefoot is well vascularized with several vessels emanating from the arch. After orbital atherectomy and drug-coated balloon angioplasty, there is latter-day of patency in the left distal superficial femoral artery. Subsequent arteriography in the more distal left lower extremity demonstrates significantly improved flow. Specimen: None EBL: <5 cc
--- NOTE | 2017-10-10 13:01 | Vascular Lab Report ---
LOWER EXTREMITY ARTERIAL DUPLEX: REASON FOR EXAM: Peripheral arterial disease with gangrene of the left toes. COMMENTS ON THE RIGHT: Triphasic waveforms are seen proximally. Monophasic waveforms are seen distally. Tibial artery occlusive disease is identified. Scattered plaque is seen throughout. Findings are consistent with abnormal perfusion. Findings are potentially inconsistent with the ability to heal distal wounds. COMMENTS ON THE LEFT: Triphasic waveforms are seen proximally. Monophasic waveforms are seen distally. Superficial femoral artery occlusion or stenosis is identified. The posterior tibial artery appears to be occluded. The dorsalis pedis artery does not have detectable flow.. Scattered plaque is seen throughout. Findings are consistent with abnormal perfusion. Findings are not consistent with the ability to heal distal wounds. IMPRESSION: RIGHT: Moderate peripheral arterial disease. Tibial artery disease is noted. The ability to heal wounds may be compromised.. LEFT:Severe arterial occlusive disease distal to the common femoral artery. Superficial femoral artery is stenotic or occluded. The posterior tibial artery is completely occluded. The dorsalis pedis artery is no detectable flow. These findings are consistent with inability to heal distal wounds.
--- NOTE | 2017-10-10 14:37 | Progress Note ---
Assessment and Plan Assessment and plan: Patient is a 46-year-old man with a history of insulin-dependent diabetes mellitus (first visit here), he takes 20 units in the morning/20 units in the evening of 70/30 insulin, hypertension (not on any medications) and tobacco dependency who presents ti [facility] ED with worsen severe throbbing constant left foot pains x 1 day but started 2-3 weeks ago, radiating up the leg, worse with weightbearing without any relieving factors associated with loss of sensation except to cold floors. This all started when he changed to a different shoe and it was rubbing against his small left toe. Patient denies any fevers, chills, nausea vomiting abdominal pain severe headaches. The pain is so intense , he has lost his appetite; therefore, his sugars on presentation was 51. He has no pcp. -Severe PAD associated with DM with gangrene: consulted Vascular -Left foot cellulitis:, start iv vanc and get blood cultures -Uncontrolled IDDM with hypoglycemia, resolved hypoglycemia, now hyperglycemic: start ssi -Cr. is 1.5 without known baseline, suspect SHARLENE due to vasomotor nephropathy: treat with ivf, follow and monitor closely -Tobacco dependance: counseling done -DVT/GI prophylaxis: sq heparin and protonix full code per Dr. Christensen: Vascular surgeon: "(1) Gangrene of toe of left foot Current Visit: Yes Status: Acute Plan to address problem: The dry gangrene is clearly been present longer than 2 weeks and he has nonpalpable pulses. He will need angiography and possible revascularization. We'll need to hydrate name of any contrast-induced nephropathy. Also needs antibiotics for potential cellulitic changes in his foot. Also obtain noninvasive studies to document the level of vascular compromise. (2) Carotid artery bruit Onset Date: Unknown Current Visit: Yes Status: Chronic Qualifiers: Laterality: bilateral Qualified Code(s): R09.89 - Other specified symptoms and signs involving the circulatory and respiratory systems Plan to address problem: He has bilateral carotid bruits and is at high risk for carotid artery disease with his hypertension, diabetes, and heavy tobacco use. Carotid duplex will be ordered. (3) Tobacco abuse Onset Date: ~10/02/87 Current Visit: Yes Status: Chronic Plan to address problem: He may benefit from tobacco cessation counseling and possible nicotine patch" 10/09/17: Cr up to 1.7, will consult Nephrology. Once Cr. is less than 1.6 then angiography 10/10/17: per Dr. Longoria: Operative Report: Procedure: 1. Distal aortography and bilateral common iliac arteriography 2. Arteriography of the left external iliac, common femoral, profunda, and superficial femoral arteries. 3. Arteriography of the left popliteal artery 4. Arteriography of the left infrapopliteal runoff. 5. Left pedal arteriography 6. Orbital atherectomy of the distal left superficial femoral artery 7. Angioplasty of the distal left superficial femoral artery with a drug balloon. 8. Mynxgrip closure device placement d/w Dr. Longoria< he wants patient to be loaded with plavix 300mg po x 1 then start 75mg daily. anticipate discharge tomorrow. History Interval history: Patient was seen and examined. Follow-up on current diagnosis. Overnight uneventful. Patient denies any chest pain, shortness breath, nausea/vomiting or severe headaches. Imaging, nursing note, chart, labs and old chart reviewed. Discussed with patient. Daughter at bedside, called me a Rapper when I first entered the room. Hospitalist Physical - Physical exam Narrative exam: GEN: WDWN, unkempt man, NAD, AWAKE, ALERT, ORIENTATED x 3 HEENT: NCAT, EOMI, PERRL, OP Clear NECK: supple, no adenopathy, no thyromegaly, no JVD CVS/HEART: RRR, NORMAL S1S2, NO JVD, pulses present bilaterally, diminished left petal pulses CHEST/LUNGS: CTA B, Symmetrical chest expansion, good air entry bilaterally GI/Abdomen: soft, NTND, good bowel sounds, no guarding or rebound /Bladder: no suprapubic tenderness, no CVA or paraspinal tenderness EXT/Skin: ble leg edema, coin plague on stomach, chronic venous stasis legs, left toes gangrene 5th and 4th, other necrotic tips on the rest of left toes also, red, warm midfoot MSK: FROM x 4 Neuro: CN 2-12 grossly intact, significant sensory deficits legs, absent ankle jerk reflex bilateral Psych: calm - Constitutional Vitals: Temp Pulse Resp BP Pulse Ox 99 F 84 18 178/88 95 10/10/17 09:46 10/10/17 09:46 10/10/17 09:46 10/10/17 09:46 10/10/17 09:46 General appearance: Present: no acute distress Results - Labs CBC & Chem 7: 10/10/17 Unknown 10/10/17 Unknown Labs: Laboratory Last Values WBC 9.9 K/mm3 (4.5-11.0) 10/10/17 Unknown RBC 3.97 M/mm3 (3.65-5.03) 10/10/17 Unknown Hgb 12.0 gm/dl (11.8-15.2) 10/10/17 Unknown Hct 35.6 % (35.5-45.6) 10/10/17 Unknown MCV 90 fl (84-94) 10/10/17 Unknown MCH 30 pg (28-32) 10/10/17 Unknown MCHC 34 % (32-34) 10/10/17 Unknown RDW 13.3 % (13.2-15.2) 10/10/17 Unknown Plt Count 313 K/mm3 (140-440) 10/10/17 Unknown Lymph % (Auto) 17.0 % (13.4-35.0) 10/07/17 07:46 [facility] % (Auto) 12.0 % (0.0-7.3) H 10/07/17 07:46 Eos % (Auto) 0.8 % (0.0-4.3) 10/07/17 07:46 Baso % (Auto) 0.7 % (0.0-1.8) 10/07/17 07:46 Lymph # 1.4 K/mm3 (1.2-5.4) 10/07/17 07:46 [facility] # 1.0 K/mm3 (0.0-0.8) H 10/07/17 07:46 Eos # 0.1 K/mm3 (0.0-0.4) 10/07/17 07:46 Baso # 0.1 K/mm3 (0.0-0.1) 10/07/17 07:46 Seg Neutrophils % 69.5 % (40.0-70.0) 10/07/17 07:46 Seg Neutrophils # 5.6 K/mm3 (1.8-7.7) 10/07/17 07:46 PT 12.4 Sec. (12.2-14.9) 10/08/17 06:51 INR 0.88 (0.87-1.13) 10/08/17 06:51 APTT 33.7 Sec. (24.2-36.6) 10/08/17 06:51 Sodium 136 mmol/L (137-145) L 10/10/17 Unknown Potassium 3.9 mmol/L (3.6-5.0) 10/10/17 Unknown Chloride 100.0 mmol/L (98-107) 10/10/17 Unknown Carbon Dioxide 25 mmol/L (22-30) 10/10/17 Unknown Anion Gap 15 mmol/L 10/10/17 Unknown BUN 52 mg/dL (9-20) H 10/10/17 Unknown Creatinine 1.5 mg/dL (0.8-1.5) 10/10/17 Unknown Estimated GFR 50 ml/min 10/10/17 Unknown BUN/Creatinine Ratio 35 % 10/10/17 Unknown Glucose 242 mg/dL (75-100) H 10/10/17 Unknown POC Glucose 134 (70-105) H 10/10/17 08:27 Calcium 6.8 mg/dL (8.4-10.2) L 10/10/17 Unknown Magnesium 2.00 mg/dL (1.7-2.3) 10/08/17 06:51 Troponin T < 0.010 ng/mL (0.00-0.029) 10/07/17 17:58 Triglycerides 304 mg/dL (2-149) H 10/08/17 06:51 Cholesterol 262 mg/dL (50-199) H 10/08/17 06:51 LDL Cholesterol Direct 162 mg/dL (50-130) H 10/08/17 06:51 HDL Cholesterol 40 mg/dL (40-59) 10/08/17 06:51 Cholesterol/HDL Ratio 6.55 % 10/08/17 06:51 TSH 4.270 mlU/mL (0.270-4.200) H 10/08/17 06:51 Free T4 0.70 ng/dL (0.76-1.46) L 10/08/17 13:23 Urine Color Yellow (Yellow) 10/07/17 08:00 Urine Turbidity Cloudy (Clear) 10/07/17 08:00 Urine pH 5.0 (5.0-7.0) 10/07/17 08:00 Ur Specific [place] 1.029 (1.003-1.030) 10/07/17 08:00 Urine Protein >500 mg/dL (Negative) 10/07/17 08:00 Urine Glucose (UA) 50 mg/dL (Negative) 10/07/17 08:00 Urine Ketones Neg mg/dL (Negative) 10/07/17 08:00 Urine Blood Sm (Negative) 10/07/17 08:00 Urine Nitrite Neg (Negative) 10/07/17 08:00 Urine Bilirubin Neg (Negative) 10/07/17 08:00 Urine Urobilinogen < 2.0 mg/dL (<2.0) 10/07/17 08:00 Ur Leukocyte Esterase Neg (Negative) 10/07/17 08:00 Urine WBC (Auto) 10.0 /HPF (0.0-6.0) H 10/07/17 08:00 Urine RBC (Auto) 17.0 /HPF (0.0-6.0) 10/07/17 08:00 U Epithel Cells (Auto) 4.0 /HPF (0-13.0) 10/07/17 08:00 Hyaline Casts 55 /LPF 10/07/17 08:00 Urine Mucus 2+ /HPF 10/07/17 08:00 Urine Sperm 1+ /HPF (RESIDENTIAL COLLECTIONS) 10/07/17 08:00 Urine Creatinine 49.2 mg/dL (0.1-20.0) H 10/10/17 00:23 Protein/Creatinin Ratio 10.06 10/10/17 00:23 Urine Total Protein 495 mg/dL (5-11.8) H 10/10/17 00:23 Blood Type A POSITIVE 10/07/17 09:05 Antibody Screen Negative 10/07/17 09:05
[2017-10-10] MEDS: PROTONIX PO SCH (17:53)
[2017-10-10] MEDS: NORVASC PO SCH (17:53)
[2017-10-10] MEDS: PLAVIX PO ONE ×2 (21:33→21:59)
[2017-10-10] MEDS: NORCO 5/325 PO PRN (21:59)
[2017-10-10] MEDS ORDERED: LEVEMIR SUB-Q SCH (22:00)
[2017-10-11] MEDS: UNASYN/NS 1.5 GM/50 ML 1.5 GM/50 ML BAG IV SCH ×3 (01:21→14:18)
[2017-10-11] MEDS: NACL 0.9% 1000 ML 1,000 ML IV SCH (01:23)
[2017-10-11] MEDS: NOVOLOG SUB-Q SCH ×2 (08:24→14:18)
--- NOTE | 2017-10-11 09:14 | Progress Note ---
Assessment and Plan 1. Acute kidney injury: Mild SHARLENE superimposed on CKD stage 3. Creatinine level continue to get better. Continue IV fluids and monitor renal function. 2. CKD stage 3 secondary to diabetic nephropathy. 3. Proteinuria: Secondary to Diabetic Nephropathy. Started on Lisinopril. 4. PAD: S/p Angioplasty yesterday. Continue Mucomyst and IV fluids. 5. Type 1 DM. 6. Medical non-compliance: Compliance encouraged. Subjective Date of service: 10/11/17 Interval history: Patient is doing ok. Objective - Vital Signs Vital signs: Vital Signs - 12hr 10/10/17 10/10/17 10/10/17 21:59 22:04 22:59 Temperature Pulse Rate Respiratory 20 18 Rate Respiratory 20 Rate [Head] Blood Pressure O2 Sat by Pulse Oximetry 10/11/17 10/11/17 10/11/17 00:32 04:53 08:06 Temperature 98.5 F 97.7 F 97.7 F Pulse Rate 89 75 71 Respiratory 19 18 20 Rate Respiratory Rate [Head] Blood Pressure 186/90 159/80 199/94 O2 Sat by Pulse 95 95 93 Oximetry - General Appearance General appearance: well-developed, well-nourished, appears stated age, other ( no distress) EENT: ATNC, PERRL, mucous membranes moist, hearing intact, vision intact Neck: supple Respiratory: Present: Clear to Ascultation Cardiology: regular, S1S2, no murmurs Gastrointestinal: normoactive bowel sounds, no tenderness, no distended Integumentary: no rash, other (left leg toes with multiple areas of necrosis) Neurologic: no focal deficit, no asterixis, alert and oriented x3, CN 3-12 intact Musculoskeletal: other (1+ edema of both LEs noted) Psychiatric: mood/affect appropriate, cooperative - Lab 10/10/17 Unknown 10/11/17 04:55 Most recent lab results Calcium 7.0 mg/dL (8.4-10.2) L 10/11/17 04:55 Magnesium 2.00 mg/dL (1.7-2.3) 10/08/17 06:51 Urine Creatinine 49.2 mg/dL (0.1-20.0) H 10/10/17 00:23 Urine Total Protein 495 mg/dL (5-11.8) H 10/10/17 00:23
[2017-10-11] MEDS: PROTONIX PO SCH (09:20)
[2017-10-11] MEDS: APRESOLINE IV PRN (09:21)
[2017-10-11] MEDS: MUCOMYST ORAL PO SCH (09:21)
[2017-10-11] MEDS ORDERED: PLAVIX PO SCH (10:00)
[2017-10-11] MEDS: ZESTRIL PO SCH ×2 (10:00→11:09)
[2017-10-11] MEDS: NORVASC PO SCH ×2 (10:04→11:08)
[2017-10-11] MEDS: TYLENOL PO PRN (10:59)
[2017-10-11 11:10] VITALS: BP 176/83
--- NOTE | 2017-10-11 12:16 | Discharge Summary ---
Providers - Providers Date of Admission: 10/07/17 09:04 Date of discharge: 10/11/17 Attending physician: SHAHLA SHULTZ 10/07/17 10:30 Consult to Physician [CONS] Routine Consulting Provider: JOSSY BRICENO Reason For Exam: severe pvd, left toes gangrene Place consult to:: vascular Notified:: [facility] service Phone number called:: [phone] Was contact made?: Yes If yes, spoke with:: audie Time called:: 12:15 10/09/17 10:55 Consult to Physician [CONS] Routine Consulting Provider: MUNA DUGGAN Reason For Exam: ARF, needs angiography tomorrow Place consult to:: Notified:: URBAN NIEVES Phone number called:: [phone] Was contact made?: Yes If yes, spoke with:: OMAR Time called:: 12:46 Comment:: YOHAN Primary care physician: FIELD INSTRUCTOR Hospitalization Condition: Stable Hospital course: add 10 units of sq levemir qhs change ssi/accucheck to achs Original Note: Assessment and Plan Assessment and plan: Patient is a 46-year-old man with a history of insulin-dependent diabetes mellitus (first visit here), he takes 20 units in the morning/20 units in the evening of 70/30 insulin, hypertension (not on any medications) and tobacco dependency who presents ti [facility] ED with worsen severe throbbing constant left foot pains x 1 day but started 2-3 weeks ago, radiating up the leg, worse with weightbearing without any relieving factors associated with loss of sensation except to cold floors. This all started when he changed to a different shoe and it was rubbing against his small left toe. Patient denies any fevers, chills, nausea vomiting abdominal pain severe headaches. The pain is so intense , he has lost his appetite; therefore, his sugars on presentation was 51. He has no pcp. -Severe PAD associated with DM with gangrene: consulted Vascular -Left foot cellulitis:, start iv vanc and get blood cultures -Uncontrolled IDDM with hypoglycemia, resolved hypoglycemia, now hyperglycemic: start ssi -Cr. is 1.5 without known baseline, suspect SHARLENE due to vasomotor nephropathy: treat with ivf, follow and monitor closely -Tobacco dependance: counseling done -DVT/GI prophylaxis: sq heparin and protonix full code per Dr. Camacho: Vascular surgeon: "(1) Gangrene of toe of left foot Current Visit: Yes Status: Acute Plan to address problem: The dry gangrene is clearly been present longer than 2 weeks and he has nonpalpable pulses. He will need angiography and possible revascularization. We'll need to hydrate name of any contrast-induced nephropathy. Also needs antibiotics for potential cellulitic changes in his foot. Also obtain noninvasive studies to document the level of vascular compromise. (2) Carotid artery bruit Onset Date: Unknown Current Visit: Yes Status: Chronic Qualifiers: Laterality: bilateral Qualified Code(s): R09.89 - Other specified symptoms and signs involving the circulatory and respiratory systems Plan to address problem: He has bilateral carotid bruits and is at high risk for carotid artery disease with his hypertension, diabetes, and heavy tobacco use. Carotid duplex will be ordered. (3) Tobacco abuse Onset Date: ~10/02/87 Current Visit: Yes Status: Chronic Plan to address problem: He may benefit from tobacco cessation counseling and possible nicotine patch" 10/09/17: Cr up to 1.7, will consult Nephrology. Once Cr. is less than 1.6 then angiography 10/10/17: per Dr. Longoria: Operative Report: Procedure: 1. Distal aortography and bilateral common iliac arteriography 2. Arteriography of the left external iliac, common femoral, profunda, and superficial femoral arteries. 3. Arteriography of the left popliteal artery 4. Arteriography of the left infrapopliteal runoff. 5. Left pedal arteriography 6. Orbital atherectomy of the distal left superficial femoral artery 7. Angioplasty of the distal left superficial femoral artery with a drug balloon. 8. Mynxgrip closure device placement d/w Dr. Longoria< he wants patient to be loaded with plavix 300mg po x 1 then start 75mg daily. anticipate discharge tomorrow. Disposition: - TO HOME OR SELFCARE Time spent for discharge: 34 minutes Core Measure Documentation - Palliative Care Palliative Care/ Comfort Measures: Not Applicable - Core Measures Any of the following diagnoses?: none - VTE Discharge Requirements Deep Vein Thrombosis/Pulmonary Embolism Present on Admission: No Has pt received <5 days of overlap therapy or INR<2.0: No Anticoagulant overlap therapy prescribed at discharge: No Contraindication No Overlap Therapy order at DC: Not Indicated Exam - Constitutional Vitals: Temp Pulse Resp BP Pulse Ox 97.7 F 78 20 176/83 93 10/11/17 08:06 10/11/17 11:01 10/11/17 10:00 10/11/17 11:09 10/11/17 10:00 Plan Activity: other (no strenous activity until cleared by Vascular surgeon, Dr. Nikita Camacho) Diet: low salt, diabetic Special Instructions: record daily BP diary, record blood sugar diary Follow up with: PRIMARY CAREMD [Primary Care Provider] - 3-5 Days NIKITA CAMACHO MD [Staff Physician] - 7 Days Prescriptions: Insulin Detemir [Levemir] 10 units SUB-Q QHS #30 day amLODIPine [Norvasc] 10 mg PO QDAY #30 tablet Clopidogrel [Plavix] 75 mg PO QDAY #30 tablet HYDROcodone/APAP 5-325 [[place] 5-325 mg TAB] 1 each PO Q4H PRN #20 tablet PRN Reason: Pain , Severe (7-10) Insulin Aspart [NovoLOG Flexpen] 1 dose SQ AC #1 pen Lisinopril [Zestril TAB] 10 mg PO QDAY #30 tablet
--- NOTE | 2017-10-11 16:19 | Progress Note ---
Assessment and Plan Pt s/p revascularization to his LLE. He now has a palpable pulse. He will need to remain on Plavix or aspirin (Drug coated balloon) following d/c. Abx per hospitalist. He has gangrenous changes to multiple toes to the LLE. Improved blood flow may help him to heal multiple digits. Suspect he will need at least the 5th toe amputated (possibly more). Recommend evaluation by Ortho or podiatry. - Patient Problems (1) Cellulitis of left leg Status: Acute (2) Gangrene of toe of left foot Status: Acute (3) Diabetes Status: Acute (4) Tobacco abuse Onset Date: ~10/02/87 Status: Chronic Subjective Date of service: 10/11/17 Interval history: Pt awake and alert. Continues to complain of discomfort, but much improved since admission. Objective - Constitutional Vitals: Vital Signs - 12hr 10/11/17 10/11/17 10/11/17 04:53 08:06 09:21 Temperature 97.7 F 97.7 F Pulse Rate 75 71 71 Pulse Rate [ From Monitor] Respiratory 18 20 Rate Blood Pressure 159/80 199/94 199/94 Blood Pressure [Left] O2 Sat by Pulse 95 93 Oximetry 10/11/17 10/11/17 10/11/17 10:00 11:01 11:08 Temperature Pulse Rate 71 78 Pulse Rate [ 71 From Monitor] Respiratory 20 Rate Blood Pressure 173/86 Blood Pressure 173/82 [Left] O2 Sat by Pulse 93 Oximetry 10/11/17 11:09 Temperature Pulse Rate Pulse Rate [ From Monitor] Respiratory Rate Blood Pressure 176/83 Blood Pressure [Left] O2 Sat by Pulse Oximetry General appearance: Present: no acute distress - EENT Eyes: EOM intact ENT: hearing intact - Neck Neck: supple - Respiratory Respiratory effort: normal Extremities: no ischemia, normal temperature Extremity abnormal: erythema (erythema extending up the lateral aspect of LLE to above the knee. No drainage appreciated.), black (necrotic Left 5th toe ( entire toe), distal 4th toe, small area on the Lateral aspect of the 3rd toe, and an area on the dorsal surface to the 2nd toe) - Neurologic Neurologic: no focal deficits - Psychiatric Psychiatric: appropriate mood/affect, intact judgment & insight, cooperative - Labs CBC & Chem 7: 10/10/17 Unknown 10/11/17 04:55 Labs: Abnormal lab results 10/10/17 10/10/17 10/11/17 Range/Units 17:15 22:05 04:55 BUN 45 H (9-20) mg/dL Glucose 156 H (75-100) mg/dL POC Glucose 130 H 357 H (70-105) Calcium 7.0 L (8.4-10.2) mg/dL 10/11/17 10/11/17 Range/Units 08:13 11:56 BUN (9-20) mg/dL Glucose (75-100) mg/dL POC Glucose 114 H 178 H (70-105) Calcium (8.4-10.2) mg/dL
[2017-10-13 23:23] LABS: Albumin 1.5 g/dL (3.8-4.8); Gamma Globulin 0.6 g/dL (0.8-1.7)
--- NOTE | 2017-10-15 14:43 | Vascular Lab Report ---
CAROTID DUPLEX STUDY: RIGHT PSVEDV CCA PROX:[id number] CCA DIST:[id number] ICA PROX:8830 ICA MID:8021 ICA DIST:7629 ECA: 19661 VERT: 78 28 LEFT PSVEDV CCA PROX:14265 CCA DIST:42585 ICA PROX:38773 ICA MID:51984 ICA DIST:9028 ECA: 36716 VERT: 73 24 REASON FOR EXAM: Carotid bruit. COMMENTS ON THE RIGHT: Doppler frequency analysis is consistent with 16 to 49 percent diameter reduction of the internal carotid artery. A small amount of plaque is seen. The common carotid artery is patent. The external carotid artery is patent. The vertebral artery has antegrade flow. COMMENTS ON THE LEFT: Doppler frequency analysis is consistent with 16 to 49 percent diameter reduction of the internal carotid artery. A small amount of calcified plaque is seen. The common carotid artery is patent. The external carotid artery is patent. The vertebral artery has antegrade flow. IMPRESSION: Less than 50% diameter reduction in the internal carotid arteries bilaterally. Consider repeat carotid artery duplex in 12 months.
== END 2017-10-11 14:52 | disposition home or self-care (01) | DRG 271 ==
LOC: ED 07:07 → 4A 09:04
PROVIDERS: ADMIT Internal Medicine; ATTEND Internal Medicine
PROC: B41G1ZZ Fluoroscopy of Left Lower Extremity Arteries using Low Osmolar Contrast (ICD-10-PCS; principal; 2017-10-10)
PROC: 04CL3ZZ Extirpation of Matter from Left Femoral Artery, Percutaneous Approach (ICD-10-PCS; 2017-10-10)
PROC: 047L3Z1 Dilation of Left Femoral Artery using Drug-Coated Balloon, Percutaneous Approach (ICD-10-PCS; 2017-10-10)
PROC: B41F1ZZ Fluoroscopy of Right Lower Extremity Arteries using Low Osmolar Contrast (ICD-10-PCS; 2017-10-10)
DX: E10.52 Type 1 diabetes mellitus with diabetic peripheral angiopathy with gangrene (principal); I96 Gangrene, not elsewhere classified; N17.9 Acute kidney failure, unspecified; I16.0 Hypertensive urgency; F17.200 Nicotine dependence, unspecified, uncomplicated; F17.210 Nicotine dependence, cigarettes, uncomplicated; L03.032 Cellulitis of left toe; R09.89 Other specified symptoms and signs involving the circulatory and respiratory systems; N18.3 Chronic kidney disease, stage 3 (moderate); I12.9 Hypertensive chronic kidney disease with stage 1 through stage 4 chronic kidney disease, or unspecified chronic kidney disease; R80.9 Proteinuria, unspecified; E10.22 Type 1 diabetes mellitus with diabetic chronic kidney disease; E10.21 Type 1 diabetes mellitus with diabetic nephropathy; E10.649 Type 1 diabetes mellitus with hypoglycemia without coma; Z71.6 Tobacco abuse counseling; Z82.49 Family history of ischemic heart disease and other diseases of the circulatory system; Z83.3 Family history of diabetes mellitus
CPT/HCPCS: 36415; 37225; 75710; 76770; 80048; 80061; 81001; 82570; 82962; 83735; 84156; 84165; 84439; 84443; 84484; 85025; 85027; 85610; 85730; 86850; 86900; 86901; 87040; 93880; 93925; 96374; 96375; C1724; C1725; C1769; C1887; C2623; J0295; J0360; J0690; J1644; J1815; J1818; J2250; J3010; J7030; J7040; Q9967

== ENCOUNTER 2017-11-21 16:01 | Inpatient (IN) | payer OTHER ==
[2017-11-21 16:43] LABS: Hematocrit 35.8 % (35.5-45.6); Hemoglobin 11.9 gm/dl (11.8-15.2); Mean Corpuscular HGB Conc 33 % (32-34); Mean Corpuscular Hemoglobin 30 pg (28-32); Mean Corpuscular Volume 91 fl (84-94); Red Blood Count 3.93 M/mm3 (3.65-5.03); Red Cell Distribution Width 14.1 % (13.2-15.2)
[2017-11-21 16:50] LABS: Platelet Count 437 K/mm3 (140-440)
[2017-11-21 16:54] LABS: Calcium 7.6 mg/dL (8.4-10.2)
[2017-11-21 17:02] LABS: Erythrocyte Sedimentation Rate 53 mm/Hr (0-20)
[2017-11-21] MEDS ORDERED: NACL 0.9% 1000 ML 1,000 ML IV ONE (17:11)
--- NOTE | 2017-11-21 17:12 | Emergency Department Report ---
ED Lower Extremity HPI - General Chief Complaint: Extremity Injury, Lower Stated Complaint: LEFT FOOT PAIN Time Seen by Provider: 11/21/17 16:48 Source: patient (He went to see a new PCP today and the PCP referred him to the ER for work up for left foot gangrene. He says he was admitted here last month for a blood clot on left side and was given ABs in the hospital but was not D/C with ABs, as he says. He says he had the gangrene then but it was dry. Since then, he says, it has been draining with fowl smell. He denies nausea, vomiting , or pain in left foot but admit to fever and chills.) Mode of arrival: Ambulatory Limitations: No Limitations - Related Data Previous Rx's Medication Instructions Recorded Last Taken Type Acetaminophen [Acetaminophen TAB] 325 mg PO Q6H PRN #30 tablet 10/11/17 Unknown Rx Clopidogrel [Plavix] 75 mg PO QDAY #30 tablet 10/11/17 Unknown Rx HYDROcodone/APAP 5-325 [[place] 1 each PO Q4H PRN #20 tablet 10/11/17 Unknown Rx 5-325 mg TAB] Insulin Aspart [NovoLOG Flexpen] 1 dose SQ AC #1 pen 10/11/17 Unknown Rx Insulin Detemir [Levemir] 10 units SUB-Q QHS #30 day 10/11/17 Unknown Rx Lisinopril [Zestril TAB] 10 mg PO QDAY #30 tablet 10/11/17 Unknown Rx amLODIPine [Norvasc] 10 mg PO QDAY #30 tablet 10/11/17 Unknown Rx Allergies Allergy/AdvReac Type Severity Reaction Status Date / Time No Known Allergies Allergy Unverified 10/07/17 07:41 ED Review of Systems ROS: Stated complaint: LEFT FOOT PAIN Other details as noted in HPI Constitutional: chills, fever Eyes: denies: eye pain, eye discharge, vision change ENT: denies: ear pain, throat pain Respiratory: denies: cough, shortness of breath, wheezing Cardiovascular: denies: chest pain, palpitations Endocrine: no symptoms reported Gastrointestinal: denies: abdominal pain, nausea, diarrhea Genitourinary: denies: urgency, dysuria Musculoskeletal: denies: back pain, joint swelling, arthralgia Skin: denies: rash, lesions Neurological: denies: headache, weakness, paresthesias Psychiatric: denies: anxiety, depression Hematological/Lymphatic: denies: easy bleeding, easy bruising ED Past Medical Hx - Past Medical History Previous Medical History?: Yes Hx Diabetes: Yes Additional medical history: left foot pain/gangrene toes - Surgical History Past Surgical History?: Yes Additional Surgical History: Left ankle surgery - Social History Smoking Status: Former Smoker Substance Use Type: Prescribed - Medications Home Medications: Home Medications Medication Instructions Recorded Confirmed Last Taken Type Acetaminophen [Acetaminophen TAB] 325 mg PO Q6H PRN #30 tablet 10/11/17 Unknown Rx Clopidogrel [Plavix] 75 mg PO QDAY #30 tablet 10/11/17 Unknown Rx HYDROcodone/APAP 5-325 [[place] 1 each PO Q4H PRN #20 tablet 10/11/17 Unknown Rx 5-325 mg TAB] Insulin Aspart [NovoLOG Flexpen] 1 dose SQ AC #1 pen 10/11/17 Unknown Rx Insulin Detemir [Levemir] 10 units SUB-Q QHS #30 day 10/11/17 Unknown Rx Lisinopril [Zestril TAB] 10 mg PO QDAY #30 tablet 10/11/17 Unknown Rx amLODIPine [Norvasc] 10 mg PO QDAY #30 tablet 10/11/17 Unknown Rx ED Physical Exam - General Limitations: No Limitations General appearance: alert, in no apparent distress - Head Head exam: Present: atraumatic, normocephalic - Eye Eye exam: Present: normal appearance - ENT ENT exam: Present: mucous membranes moist - Neck Neck exam: Present: normal inspection - Respiratory Respiratory exam: Present: normal lung sounds bilaterally. Absent: respiratory distress - Cardiovascular Cardiovascular Exam: Present: regular rate, normal rhythm. Absent: systolic murmur, diastolic murmur, rubs, gallop - GI/Abdominal GI/Abdominal exam: Present: soft, normal bowel sounds - Rectal Rectal exam: Present: deferred - Extremities Exam Extremities exam: Present: normal inspection - Expanded Lower Extremity Exam Left Foot/Toe exam: Present: full ROM, swelling. Absent: normal inspection ( blackish discoloration of the distal phalanx of fifth, fourth, and second toes.) , tenderness Neuro vascular tendon exam: Present: no vascular compromise. Absent: pulse deficit - Back Exam Back exam: Present: normal inspection - Neurological Exam Neurological exam: Present: alert, oriented X3 - Psychiatric Psychiatric exam: Present: normal affect, normal mood - Skin Skin exam: Present: warm, dry, intact, normal color. Absent: rash ED Course Vital Signs 11/21/17 16:10 Temperature 97.6 F Pulse Rate 90 Respiratory 20 Rate Blood Pressure 179/99 O2 Sat by Pulse 96 Oximetry Critical care attestation.: If time is entered above; I have spent that time in minutes in the direct care of this critically ill patient, excluding procedure time. ED Disposition Clinical Impression: Diabetic foot, Gangrene of toe of left foot Disposition: OP ADMIT IP TO THIS HOSP Is pt being admited?: Yes Does the pt Need Aspirin: No Condition: Stable Instructions: Diabetes Mellitus Type 2 in Adults (ED) Time of Disposition: 19:28
[2017-11-21 17:52] LABS: Basophils % (Manual) 0 % (0.0-1.8); Total Cells Counted 100
[2017-11-21 17:54] LABS: Anisocytosis 1+; Poikilocytosis 1+
--- NOTE | 2017-11-21 18:28 | Cat Scan Report ---
FINAL REPORT EXAM: CT LOWER EXTREMITY LT WO CON HISTORY: left foot gangrene TECHNIQUE: CT of the left foot without contrast PRIORS: None. FINDINGS: There is subcutaneous air within the soft tissues of the 5th toe with multiple gas collections present within proximal and distal phalanges. Multiple subcutaneous air collections are present within the soft tissues of the 2nd toe. No additional air collections identified. Noted is corticated deformity of the distal tibia consistent with remote healed fracture. There is surgical plate and screws present within distal fibula. Degenerative changes are noted at the ankle joint with joint space narrowing. IMPRESSION: Findings are consistent with acute osteomyelitis with gas gangrene and intraosseous gas collections 5th toe involving the proximal and distal phalanges. Subcutaneous air within the distal soft tissues of the 2nd toe consistent with gas gangrene Corticated bony deformity of the distal tibia consistent with remote fracture. Surgical plate and screws bridging distal fracture of the distal fibula Osteopenia Degenerative changes at the ankle joint
[2017-11-21] MEDS ORDERED: APRESOLINE IV ONE (20:58)
[2017-11-21] MEDS ORDERED: APRESOLINE ONE (21:19)
[2017-11-21] MEDS ORDERED: CARDIZEM IV ONE (22:20)
[2017-11-21] MEDS ORDERED: TYLENOL PO PRN (23:46)
--- NOTE | 2017-11-21 23:46 | History and Physical Report ---
History of Present Illness Date of examination: 11/21/17 Date of admission: 11/21/17 19:29 Chief complaint: CC :LLE redness and gangrene of 4th and 5 toes History of present illness: [place] Time Seen by Provider: 11/21/17 16:48 patient (He went to see a new PCP today and the PCP referred him to the ER for work up for left foot gangrene. He says he was admitted here last month for a blood clot on left side and was given ABs in the hospital but was not D/C with ABs, as he says. He says he had the gangrene then but it was dry. Since then, he says, it has been draining with fowl smell. He denies nausea, vomiting, or pain in left foot but admit to fever and chills.No follow up with any physician till one month ago. Manages his Diabetes by buying Novolin 70/3k0 from ([employer]) from [place] Mode of arrival: Ambulatory Limitations: No Limitations -Past Medical History Previous Medical History?: Yes Hx Diabetes: Yes Additional medical history: left foot pain/gangrene toes HTN - Surgical History Past Surgical History?: Yes Additional Surgical History: Left ankle surgery - Social History Smoking Status: Former Smoker Substance Use Type: Prescribed - Medications Home Medications: Home Medications Medication Instructions Recorded Confirmed Last Taken Type Acetaminophen [Acetaminophen TAB] 325 mg PO Q6H PRN #30 tablet 10/11/17 Unknown Rx Clopidogrel [Plavix] 75 mg PO QDAY #30 tablet 10/11/17 Unknown Rx HYDROcodone/APAP 5-325 [[place] 1 each PO Q4H PRN #20 tablet 10/11/17 Unknown Rx 5-325 mg TAB] Insulin Aspart [NovoLOG Flexpen] 1 dose SQ AC #1 pen 10/11/17 Unknown Rx Insulin Detemir [Levemir] 10 units SUB-Q QHS #30 day 10/11/17 Unknown Rx Lisinopril [Zestril TAB] 10 mg PO QDAY #30 tablet 10/11/17 Unknown Rx amLODIPine [Norvasc] 10 mg PO QDAY #30 tablet 10/11/17 Unknown Rx Review of Systems LEFT FOOT PAIN Other details as noted in HPI Constitutional: chills, fever Eyes: denies: eye pain, eye discharge, vision change ENT: denies: ear pain, throat pain Respiratory: denies: cough, shortness of breath, wheezing Cardiovascular: denies: chest pain, palpitations Endocrine: no symptoms reported Gastrointestinal: denies: abdominal pain, nausea, diarrhea Genitourinary: denies: urgency, dysuria Musculoskeletal: denies: back pain, joint swelling, arthralgia Skin: denies: rash, lesions Neurological: denies: headache, weakness, paresthesias Psychiatric: denies: anxiety, depression Hematological/Lymphatic: denies: easy bleeding, easy bruising Medications and Allergies Allergies Allergy/AdvReac Type Severity Reaction Status Date / Time No Known Allergies Allergy Unverified 10/07/17 07:41 Home Medications Medication Instructions Recorded Confirmed Last Taken Type Acetaminophen [Acetaminophen TAB] 325 mg PO Q6H PRN #30 tablet 10/11/17 Unknown Rx HYDROcodone/APAP 5-325 [[place] 1 each PO Q4H PRN #20 tablet 10/11/17 11/21/17 Unknown Rx 5-325 mg TAB] Insulin Aspart [NovoLOG Flexpen] 1 dose SQ AC #1 pen 10/11/17 11/21/17 Unknown Rx Insulin Detemir [Levemir] 10 units SUB-Q QHS #30 day 10/11/17 11/21/17 Unknown Rx Clopidogrel [Plavix] 75 mg PO DAILY 11/21/17 11/21/17 Unknown History Lisinopril [Zestril TAB] 10 mg PO DAILY 11/21/17 11/21/17 Unknown History amLODIPine [Norvasc] 10 mg PO DAILY 11/21/17 11/21/17 Unknown History Exam - Constitutional Vitals: Temp Pulse Resp BP Pulse Ox 97.6 F 76 20 200/104 81 L 11/21/17 16:10 11/21/17 22:44 11/21/17 16:10 11/21/17 22:44 11/21/17 21:30 Results - Labs CBC & Chem 7: 11/21/17 16:21 11/21/17 16:21 Labs: Laboratory Last Values WBC 12.5 K/mm3 (4.5-11.0) H 11/21/17 16:21 RBC 3.93 M/mm3 (3.65-5.03) 11/21/17 16:21 Hgb 11.9 gm/dl (11.8-15.2) 11/21/17 16:21 Hct 35.8 % (35.5-45.6) 11/21/17 16:21 MCV 91 fl (84-94) 11/21/17 16:21 MCH 30 pg (28-32) 11/21/17 16:21 MCHC 33 % (32-34) 11/21/17 16:21 RDW 14.1 % (13.2-15.2) 11/21/17 16:21 Plt Count 437 K/mm3 (140-440) 11/21/17 16:21 Add Manual Diff Complete 11/21/17 16:21 Total Counted 100 11/21/17 16:21 Seg Neuts % (Manual) 75.0 % (40.0-70.0) H 11/21/17 16:21 Band Neutrophils % 0 % 11/21/17 16:21 Lymphocytes % (Manual) 16.0 % (13.4-35.0) 11/21/17 16:21 Reactive Lymphs % (Man) 0 % 11/21/17 16:21 Monocytes % (Manual) 8.0 % (0.0-7.3) H 11/21/17 16:21 Eosinophils % (Manual) 1.0 % (0.0-4.3) 11/21/17 16:21 Basophils % (Manual) 0 % (0.0-1.8) 11/21/17 16:21 Metamyelocytes % 0 % 11/21/17 16:21 Myelocytes % 0 % 11/21/17 16:21 Promyelocytes % 0 % 11/21/17 16:21 Blast Cells % 0 % 11/21/17 16:21 Nucleated RBC % Not Reportable 11/21/17 16:21 Seg Neutrophils # Man 9.4 K/mm3 (1.8-7.7) H 11/21/17 16:21 Band Neutrophils # 0.0 K/mm3 11/21/17 16:21 Lymphocytes # (Manual) 2.0 K/mm3 (1.2-5.4) 11/21/17 16:21 Abs React Lymphs (Man) 0.0 K/mm3 11/21/17 16:21 Monocytes # (Manual) 1.0 K/mm3 (0.0-0.8) H 11/21/17 16:21 Eosinophils # (Manual) 0.1 K/mm3 (0.0-0.4) 11/21/17 16:21 Basophils # (Manual) 0.0 K/mm3 (0.0-0.1) 11/21/17 16:21 Metamyelocytes # 0.0 K/mm3 11/21/17 16:21 Myelocytes # 0.0 K/mm3 11/21/17 16:21 Promyelocytes # 0.0 K/mm3 11/21/17 16:21 Blast Cells # 0.0 K/mm3 11/21/17 16:21 WBC Morphology Not Reportable 11/21/17 16:21 Hypersegmented Neuts Not Reportable 11/21/17 16:21 Hyposegmented Neuts Not Reportable 11/21/17 16:21 Hypogranular Neuts Not Reportable 11/21/17 16:21 Smudge Cells Not Reportable 11/21/17 16:21 Toxic Granulation Not Reportable 11/21/17 16:21 Toxic Vacuolation Not Reportable 11/21/17 16:21 Dohle Bodies Not Reportable 11/21/17 16:21 Pelger-Huet Anomaly Not Reportable 11/21/17 16:21 Luba Rods Not Reportable 11/21/17 16:21 Platelet Estimate Appears normal 11/21/17 16:21 Clumped Platelets Not Reportable 11/21/17 16:21 Plt Clumps, EDTA Not Reportable 11/21/17 16:21 Large Platelets Not Reportable 11/21/17 16:21 Giant Platelets Not Reportable 11/21/17 16:21 Platelet Satelliting Not Reportable 11/21/17 16:21 Plt Morphology Comment Not Reportable 11/21/17 16:21 RBC Morphology Not Reportable 11/21/17 16:21 Dimorphic RBCs Not Reportable 11/21/17 16:21 Polychromasia Not Reportable 11/21/17 16:21 Hypochromasia Not Reportable 11/21/17 16:21 Poikilocytosis 1+ 11/21/17 16:21 Anisocytosis 1+ 11/21/17 16:21 Microcytosis Not Reportable 11/21/17 16:21 Macrocytosis Not Reportable 11/21/17 16:21 Spherocytes Not Reportable 11/21/17 16:21 Pappenheimer Bodies Not Reportable 11/21/17 16:21 Sickle Cells Not Reportable 11/21/17 16:21 Target Cells Not Reportable 11/21/17 16:21 Tear Drop Cells Not Reportable 11/21/17 16:21 Ovalocytes Not Reportable 11/21/17 16:21 Helmet Cells Not Reportable 11/21/17 16:21 [place] Bodies Not Reportable 11/21/17 16:21 [place] Rings Not Reportable 11/21/17 16:21 [place] Cells Not Reportable 11/21/17 16:21 Bite Cells Not Reportable 11/21/17 16:21 Crenated Cell Not Reportable 11/21/17 16:21 Elliptocytes Not Reportable 11/21/17 16:21 Acanthocytes (Spur) Not Reportable 11/21/17 16:21 Rouleaux Not Reportable 11/21/17 16:21 Hemoglobin C Crystals Not Reportable 11/21/17 16:21 Schistocytes Not Reportable 11/21/17 16:21 Malaria parasites Not Reportable 11/21/17 16:21 ESR 53 mm/Hr (0-20) 11/21/17 16:21 Leobardo Bodies Not Reportable 11/21/17 16:21 Hem Pathologist Commnt No 11/21/17 16:21 Sodium 137 mmol/L (137-145) 11/21/17 16:21 Potassium 4.4 mmol/L (3.6-5.0) 11/21/17 16:21 Chloride 104.0 mmol/L (98-107) 11/21/17 16:21 Carbon Dioxide 26 mmol/L (22-30) 11/21/17 16:21 Anion Gap 11 mmol/L 11/21/17 16:21 BUN 31 mg/dL (9-20) H 11/21/17 16:21 Creatinine 1.6 mg/dL (0.8-1.5) H 11/21/17 16:21 Estimated GFR 46 ml/min 11/21/17 16:21 BUN/Creatinine Ratio 19 % 11/21/17 16:21 Glucose 124 mg/dL (75-100) H 11/21/17 16:21 Lactic Acid 0.80 mmol/L (0.7-2.0) 11/21/17 17:33 Calcium 7.6 mg/dL (8.4-10.2) L 11/21/17 16:21 C-Reactive Protein 1.00 mg/dL (0.00-1.30) 11/21/17 16:21 - Imaging and Cardiology Imaging and Cardiology: Lower ext CT --Findings c/w Acute osteomyelitis with Gas Gangrene and interosseus gas collection 5th toe involving proximal and distal phalanges Assessment and Plan Advance Directives: Yes (Full code) VTE prophylaxis?: Chemical Plan of care discussed with patient/family: Yes - Patient Problems (1) Gangrene of toe of left foot Current Visit: Yes Status: Acute Plan to address problem: IV abx IR consult Arterial duplex scan (2) Cellulitis of left leg Current Visit: No Status: Acute Plan to address problem: IV Unasayn and IV Vancomycin ID consult requested Osteomyelitis and ??Gas gangrene.Clindamycin maybe a better choice.Will defer to ID (3) SHARLENE (acute kidney injury) Current Visit: Yes Status: Acute Plan to address problem: Dr Schmitt consulted IV fluids for now (4) T2DM (type 2 diabetes mellitus) Current Visit: Yes Status: Chronic Qualifiers: Diabetes mellitus complication status: with circulatory complication Diabetes mellitus complication detail: with peripheral angiopathy with gangrene Diabetes mellitus shelter insulin use: with terminal manager use Qualified Code( s): E11.52 - Type 2 diabetes mellitus with diabetic peripheral angiopathy with gangrene; Z79.4 - [facility] (current) use of insulin; Z79.4 - [facility] (current ) use of insulin; Z79.4 - petroleum terminal plant operator (current) use of insulin; Z79.4 - petroleum terminal plant operator (current) use of insulin Plan to address problem: Adjust Insulin dosage and Check A1c (5) HTN (hypertension) Current Visit: Yes Status: Chronic Qualifiers: Hypertension type: essential hypertension Qualified Code(s): I10 - Essential (primary) hypertension Plan to address problem: Cont antihypertensives (6) Hypertensive emergency Current Visit: Yes Status: Acute Plan to address problem: On Cardene drip. Lisinopril increased to 30 mg from 10 mg and Coreg 12.5 BID added (7) DVT prophylaxis Current Visit: Yes Status: Acute Plan to address problem: On Lovenox 30 sq qd
[2017-11-21] MEDS ORDERED: ZOFRAN IV PRN (23:47)
[2017-11-21] MEDS ORDERED: DULCOLAX PR PRN (23:47)
[2017-11-21] MEDS ORDERED: MILK OF MAGNESIA PO PRN (23:47)
[2017-11-22] MEDS ORDERED: CARDENE 50 MG in NACL 0.9% 250ML 230 ML IV SCH (02:00)
[2017-11-22] MEDS ORDERED: TYLENOL ONE (02:06)
[2017-11-22] MEDS: TYLENOL PO PRN (02:09)
[2017-11-22] MEDS ORDERED: INSULIN ASPART SQ SCH (07:30)
[2017-11-22] MEDS ORDERED: VANCOMYCIN PHARMACY TO DOSE IV SCH (08:00)
[2017-11-22] MEDS: NOVOLOG SUB-Q SCH ×5 (09:55→17:23)
[2017-11-22] MEDS ORDERED: ZESTRIL PO SCH (10:00)
[2017-11-22] MEDS: UNASYN/NS 3 GM/100 ML 3 GM/100 ML BAG IV SCH ×3 (10:24→17:18)
[2017-11-22] MEDS ORDERED: VANCOMYCIN 1,250 MG in NACL 0.9% 250ML 250 ML IV ONE (13:00)
[2017-11-22] MEDS ORDERED: VANCOMYCIN 1,500 MG in NACL 0.9% 500 ML 500 ML IV ONE (13:00)
[2017-11-22] MEDS: COREG PO SCH ×2 (13:08→22:22)
[2017-11-22] MEDS: NORVASC PO SCH (13:09)
[2017-11-22] MEDS: PLAVIX PO SCH (13:09)
[2017-11-22] MEDS: ZESTRIL PO SCH (13:10)
--- NOTE | 2017-11-22 15:46 | Consultation ---
History of Present Illness - Reason for Consult Consult date: 11/22/17 Medications and Allergies Allergies Allergy/AdvReac Type Severity Reaction Status Date / Time No Known Allergies Allergy Unverified 10/07/17 07:41 Home Medications Medication Instructions Recorded Confirmed Last Taken Type Acetaminophen [Acetaminophen TAB] 325 mg PO Q6H PRN #30 tablet 10/11/17 Unknown Rx HYDROcodone/APAP 5-325 [[place] 1 each PO Q4H PRN #20 tablet 10/11/17 11/21/17 Unknown Rx 5-325 mg TAB] Insulin Aspart [NovoLOG Flexpen] 1 dose SQ AC #1 pen 10/11/17 11/21/17 Unknown Rx Insulin Detemir [Levemir] 10 units SUB-Q QHS #30 day 10/11/17 11/21/17 Unknown Rx Clopidogrel [Plavix] 75 mg PO DAILY 11/21/17 11/21/17 Unknown History Lisinopril [Zestril TAB] 10 mg PO DAILY 11/21/17 11/21/17 Unknown History amLODIPine [Norvasc] 10 mg PO DAILY 11/21/17 11/21/17 Unknown History Active Meds: Active Medications Acetaminophen (Tylenol) 650 mg PO Q4H PRN PRN Reason: Pain MILD(1-3)/Fever >100.5/LUNA Last Admin: 11/22/17 02:09 Dose: 650 mg Amlodipine Besylate (Norvasc) 10 mg PO DAILY [facility] Last Admin: 11/22/17 13:09 Dose: 10 mg Bisacodyl (Dulcolax) 10 mg [place] QDAY PRN PRN Reason: Constipation unrelieved by MOM Carvedilol (Coreg) 12.5 mg PO BID [facility] Last Admin: 11/22/17 13:08 Dose: 12.5 mg Clopidogrel Bisulfate (Plavix) 75 mg PO DAILY [facility] Last Admin: 11/22/17 13:09 Dose: 75 mg Ampicillin Sodium/Sulbactam Sodium (Unasyn/Ns 3 Gm/100 Ml) 3 gm in 100 mls @ 100 mls/hr IV Q6HR TANIYA PRN Reason: Protocol Last Admin: 11/22/17 13:10 Dose: 100 mls/hr Sodium Chloride (Nacl 0.9% 1000 Ml) 1,000 mls @ 100 mls/hr IV DIRECT [facility] Vancomycin HCl (Vancomycin/0.45 Ns 1 Gm/250 Ml) 1 gm in 250 mls @ 167.007 mls/ hr IV Q24H TANIYA Insulin Aspart (Novolog) 6 units SUB-Q TIDAC [facility] Last Admin: 11/22/17 13:11 Dose: 6 units Insulin Aspart (Novolog) 0 units SUB-Q ACHS [facility] PRN Reason: Protocol Lisinopril (Zestril) 20 mg PO DAILY [facility] Last Admin: 11/22/17 13:10 Dose: 20 mg Magnesium Hydroxide (Milk Of Magnesia) 30 ml PO Q4H PRN PRN Reason: Constipation Ondansetron HCl (Zofran) 4 mg IV Q8H PRN PRN Reason: N/V unrelieved by Tony Vancomycin HCl (Vancomycin Pharmacy To Dose) 1 each IV PKCONSULT [facility] PRN Reason: Protocol Exam - Vital Signs Vital signs: Vital Signs Temp Pulse Resp BP Pulse Ox 97.6 F 90 20 179/99 96 11/21/17 16:10 11/21/17 16:10 11/21/17 16:10 11/21/17 16:10 11/21/17 16:10 Results - Lab Results 11/21/17 16:21 11/21/17 16:21 Most recent lab results Calcium 7.6 mg/dL (8.4-10.2) L 11/21/17 16:21
--- NOTE | 2017-11-22 16:48 | Progress Note ---
Assessment and Plan Assessment and plan: patient (He went to see a new PCP today and the PCP referred him to the ER for work up for left foot gangrene. He says he was admitted here last month for a blood clot on left side and was given ABs in the hospital but was not D/C with ABs, as he says. He says he had the gangrene then but it was dry. Since then, he says, it has been draining with fowl smell. He denies nausea, vomiting, or pain in left foot but admit to fever and chills.No follow up with any physician till one month ago. Manages his Diabetes by buying Novolin 70/3k0 from ([employer]) from [employer] Gangrene of toe of left foot IV abx IR consult Arterial duplex scan -likely reperfusion injury, but need 4th and 5th toes amputated Cellulitis of left leg IV Unasayn and IV Vancomycin ID consult requested Osteomyelitis and ??Gas gangrene.Clindamycin maybe a better choice.Will defer to ID SHARLENE (acute kidney injury) Dr Schmitt consulted IV fluids for now T2DM (type 2 diabetes mellitus) Adjust Insulin dosage and Check A1c HTN (hypertension) Cont antihypertensives Hypertensive emergency optimize oral meds DVT prophylaxis Lovenox History Interval history: co of LLE swelling and pain no fever no vomiting, no confusion, Hospitalist Physical - Constitutional Vitals: Temp Pulse Resp BP Pulse Ox 98.6 F 87 18 169/87 91 11/22/17 12:32 11/22/17 12:32 11/22/17 12:32 11/22/17 12:32 11/22/17 12:32 General appearance: Present: no acute distress - EENT Eyes: Present: PERRL ENT: hearing intact - Neck Neck: Present: supple - Respiratory Respiratory effort: normal Respiratory: bilateral: CTA - Cardiovascular Rhythm: regular Heart Sounds: Present: S1 & S2 - Extremities Extremity abnormal: edema (LLE, with gangrenous 4th and 5th toes, appears to be wet gangrene), erythema Peripheral Pulses: within normal limits - Abdominal General gastrointestinal: soft - Integumentary Integumentary: Present: clear, warm - Psychiatric Psychiatric: appropriate mood/affect, intact judgment & insight, memory intact, cooperative - Neurologic Neurologic: CNII-XII intact, no focal deficits, moves all extremities Results - Labs CBC & Chem 7: 11/24/17 06:07 11/25/17 04:31 Labs: Laboratory Last Values WBC 12.5 K/mm3 (4.5-11.0) H 11/21/17 16:21 RBC 3.93 M/mm3 (3.65-5.03) 11/21/17 16:21 Hgb 11.9 gm/dl (11.8-15.2) 11/21/17 16:21 Hct 35.8 % (35.5-45.6) 11/21/17 16:21 MCV 91 fl (84-94) 11/21/17 16:21 MCH 30 pg (28-32) 11/21/17 16:21 MCHC 33 % (32-34) 11/21/17 16:21 RDW 14.1 % (13.2-15.2) 11/21/17 16:21 Plt Count 437 K/mm3 (140-440) 11/21/17 16:21 Add Manual Diff Complete 11/21/17 16:21 Total Counted 100 11/21/17 16:21 Seg Neuts % (Manual) 75.0 % (40.0-70.0) H 11/21/17 16:21 Band Neutrophils % 0 % 11/21/17 16:21 Lymphocytes % (Manual) 16.0 % (13.4-35.0) 11/21/17 16:21 Reactive Lymphs % (Man) 0 % 11/21/17 16:21 Monocytes % (Manual) 8.0 % (0.0-7.3) H 11/21/17 16:21 Eosinophils % (Manual) 1.0 % (0.0-4.3) 11/21/17 16:21 Basophils % (Manual) 0 % (0.0-1.8) 11/21/17 16:21 Metamyelocytes % 0 % 11/21/17 16:21 Myelocytes % 0 % 11/21/17 16:21 Promyelocytes % 0 % 11/21/17 16:21 Blast Cells % 0 % 11/21/17 16:21 Nucleated RBC % Not Reportable 11/21/17 16:21 Seg Neutrophils # Man 9.4 K/mm3 (1.8-7.7) H 11/21/17 16:21 Band Neutrophils # 0.0 K/mm3 11/21/17 16:21 Lymphocytes # (Manual) 2.0 K/mm3 (1.2-5.4) 11/21/17 16:21 Abs React Lymphs (Man) 0.0 K/mm3 11/21/17 16:21 Monocytes # (Manual) 1.0 K/mm3 (0.0-0.8) H 11/21/17 16:21 Eosinophils # (Manual) 0.1 K/mm3 (0.0-0.4) 11/21/17 16:21 Basophils # (Manual) 0.0 K/mm3 (0.0-0.1) 11/21/17 16:21 Metamyelocytes # 0.0 K/mm3 11/21/17 16:21 Myelocytes # 0.0 K/mm3 11/21/17 16:21 Promyelocytes # 0.0 K/mm3 11/21/17 16:21 Blast Cells # 0.0 K/mm3 11/21/17 16:21 WBC Morphology Not Reportable 11/21/17 16:21 Hypersegmented Neuts Not Reportable 11/21/17 16:21 Hyposegmented Neuts Not Reportable 11/21/17 16:21 Hypogranular Neuts Not Reportable 11/21/17 16:21 Smudge Cells Not Reportable 11/21/17 16:21 Toxic Granulation Not Reportable 11/21/17 16:21 Toxic Vacuolation Not Reportable 11/21/17 16:21 Dohle Bodies Not Reportable 11/21/17 16:21 Pelger-Huet Anomaly Not Reportable 11/21/17 16:21 [place]uba Rods Not Reportable 11/21/17 16:21 Platelet Estimate Appears normal 11/21/17 16:21 Clumped Platelets Not Reportable 11/21/17 16:21 Plt Clumps, EDTA Not Reportable 11/21/17 16:21 Large Platelets Not Reportable 11/21/17 16:21 Giant Platelets Not Reportable 11/21/17 16:21 Platelet Satelliting Not Reportable 11/21/17 16:21 Plt Morphology Comment Not Reportable 11/21/17 16:21 RBC Morphology Not Reportable 11/21/17 16:21 Dimorphic RBCs Not Reportable 11/21/17 16:21 Polychromasia Not Reportable 11/21/17 16:21 Hypochromasia Not Reportable 11/21/17 16:21 Poikilocytosis 1+ 11/21/17 16:21 Anisocytosis 1+ 11/21/17 16:21 Microcytosis Not Reportable 11/21/17 16:21 Macrocytosis Not Reportable 11/21/17 16:21 Spherocytes Not Reportable 11/21/17 16:21 Pappenheimer Bodies Not Reportable 11/21/17 16:21 Sickle Cells Not Reportable 11/21/17 16:21 Target Cells Not Reportable 11/21/17 16:21 Tear Drop Cells Not Reportable 11/21/17 16:21 Ovalocytes Not Reportable 11/21/17 16:21 Helmet Cells Not Reportable 11/21/17 16:21 [place] Bodies Not Reportable 11/21/17 16:21 [place] Rings Not Reportable 11/21/17 16:21 [place] Cells Not Reportable 11/21/17 16:21 Bite Cells Not Reportable 11/21/17 16:21 Crenated Cell Not Reportable 11/21/17 16:21 Elliptocytes Not Reportable 11/21/17 16:21 Acanthocytes (Spur) Not Reportable 11/21/17 16:21 Rouleaux Not Reportable 11/21/17 16:21 Hemoglobin C Crystals Not Reportable 11/21/17 16:21 Schistocytes Not Reportable 11/21/17 16:21 Malaria parasites Not Reportable 11/21/17 16:21 ESR 53 mm/Hr (0-20) 11/21/17 16:21 Leobardo Bodies Not Reportable 11/21/17 16:21 Hem Pathologist Commnt No 11/21/17 16:21 Sodium 137 mmol/L (137-145) 11/21/17 16:21 Potassium 4.4 mmol/L (3.6-5.0) 11/21/17 16:21 Chloride 104.0 mmol/L (98-107) 11/21/17 16:21 Carbon Dioxide 26 mmol/L (22-30) 11/21/17 16:21 Anion Gap 11 mmol/L 11/21/17 16:21 BUN 31 mg/dL (9-20) H 11/21/17 16:21 Creatinine 1.6 mg/dL (0.8-1.5) H 11/21/17 16:21 Estimated GFR 46 ml/min 11/21/17 16:21 BUN/Creatinine Ratio 19 % 11/21/17 16:21 Glucose 124 mg/dL (75-100) H 11/21/17 16:21 POC Glucose 320 (70-105) H 11/22/17 12:13 Lactic Acid 0.80 mmol/L (0.7-2.0) 11/21/17 17:33 Calcium 7.6 mg/dL (8.4-10.2) L 11/21/17 16:21 C-Reactive Protein 1.00 mg/dL (0.00-1.30) 11/21/17 16:21
[2017-11-22] MEDS: NACL 0.9% 1000 ML 1,000 ML IV SCH (17:17)
[2017-11-23] MEDS: UNASYN/NS 3 GM/100 ML 3 GM/100 ML BAG IV SCH ×5 (00:59→23:50)
[2017-11-23] MEDS: NOVOLOG SUB-Q SCH ×8 (01:00→23:47)
--- NOTE | 2017-11-23 09:28 | Progress Note ---
Subjective Interval history: Patient was seen today for follow-up, regarding multiple renal related issues Events of 24 hours were noted Patient denies any complaints of chest pain pressure or shortness of breath Interdisciplinary Notes were also reviewed from past 24 hours Vitals labs intake output medications: Reviewed Past medical history: Reviewed Allergies: Reviewed Social history: Reviewed Family history: Reviewed Physical examination Gen.: No acute distress HEENT: Mild pallor nor icterus no uremic order Neck: Supple without any mass or JVD Chest: Clear to auscultation anteriorly Heart: Regular rate and rhythm S1 and S2 heard Abdomen: Soft nontender no suprapubic fullness no masses no renal bruit Extremity: Edema , no peripheral cyanosis Skin: No petechial rashes dry skin Assessment and plan Elevated creatinine the patient would does have multiple risk factors for underlying chronic kidney disease previous ultrasonogram obtained in October does show evidence of echogenic kidneys. At this time given that patient has left foot gangrene with osteomyelitis would like to discontinue BLANKA inhibitor is quite likely that he may have underlying renovascular disease due to above. History of of pleural effusion noted on the previous ultrasonogram check urine for protein creatinine ratio is to make sure he does not have nephrotic range proteinuria Will order further urinary studies including workup for proteinuria, check electrophoresis previous ultrasonogram from October 2017 was also reviewed If radiocontrast is given his risk for radiocontrast nephropathy is going to be quite high At this time discontinue BLANKA inhibitor continue to monitor closely Had a detailed discussion with patient about renal care plan, will need to follow-up in the office upon discharge for chronic kidney disease risk for progression to end-stage renal disease quite high Renal prognosis currently is guarded Significant lab finding were discussed with patient unexplained and simple Indonesian Patient does have good understanding about renal related issues We'll continue to follow and make recommendation from renal standpoint Objective - Vital Signs Vital signs: Vital Signs - 12hr 11/22/17 11/22/17 11/23/17 22:00 22:22 00:36 Temperature 98.3 F 97.9 F Pulse Rate 73 70 Pulse Rate [ 72 From Monitor] Respiratory 20 20 18 Rate Blood Pressure 167/84 148/75 Blood Pressure [Left] O2 Sat by Pulse 93 93 92 Oximetry 11/23/17 11/23/17 04:15 07:52 Temperature 97.6 F 98.3 F Pulse Rate 77 80 Pulse Rate [ From Monitor] Respiratory 20 18 Rate Blood Pressure 163/83 Blood Pressure 142/81 [Left] O2 Sat by Pulse 94 88 Oximetry - Lab 11/21/17 16:21 11/21/17 16:21 Most recent lab results Calcium 7.6 mg/dL (8.4-10.2) L 11/21/17 16:21
[2017-11-23] MEDS: COREG PO SCH ×2 (11:09→22:20)
[2017-11-23] MEDS: PLAVIX PO SCH (11:09)
[2017-11-23] MEDS: NORVASC PO SCH (11:10)
[2017-11-23] MEDS: ZESTRIL PO SCH (11:10)
--- NOTE | 2017-11-23 11:10 | Consultation ---
History of Present Illness - Reason for Consult Consult date: 11/23/17 Gangrene - History of Present Illness 47-year-old male with history of peripheral vascular disease who presented with gangrene 1 month ago of the left fourth and fifth digit and is status post revascularization. He was discharged, and has found that his left foot has started to drain and has a new associated foul smell with it. On physical exam, the patient has what gangrene of the left fourth and fifth digit. He is not toxic-appearing. His left lower extremity is slightly edematous. He has palpable bilateral dorsalis pedis pulses. Past medical history of diabetes, hypertension, left foot gangrene, left ankle surgery, and revascularization. Patient has a history of smoking. Past History Past Medical History: diabetes, hypertension, PVD Past Surgical History: Other (left lower extremity endovascular revascularization and left ankle surgery) Social history: smoking (former) Family history: no significant family history Medications and Allergies Allergies Allergy/AdvReac Type Severity Reaction Status Date / Time No Known Allergies Allergy Unverified 10/07/17 07:41 Home Medications Medication Instructions Recorded Confirmed Last Taken Type Acetaminophen [Acetaminophen TAB] 325 mg PO Q6H PRN #30 tablet 10/11/17 Unknown Rx HYDROcodone/APAP 5-325 [[place] 1 each PO Q4H PRN #20 tablet 10/11/17 11/21/17 Unknown Rx 5-325 mg TAB] Insulin Aspart [NovoLOG Flexpen] 1 dose SQ AC #1 pen 10/11/17 11/21/17 Unknown Rx Insulin Detemir [Levemir] 10 units SUB-Q QHS #30 day 10/11/17 11/21/17 Unknown Rx Clopidogrel [Plavix] 75 mg PO DAILY 11/21/17 11/21/17 Unknown History Lisinopril [Zestril TAB] 10 mg PO DAILY 11/21/17 11/21/17 Unknown History amLODIPine [Norvasc] 10 mg PO DAILY 11/21/17 11/21/17 Unknown History Active Meds: Active Medications Acetaminophen (Tylenol) 650 mg PO Q4H PRN PRN Reason: Pain MILD(1-3)/Fever >100.5/LUNA Last Admin: 11/22/17 02:09 Dose: 650 mg Amlodipine Besylate (Norvasc) 10 mg PO DAILY [facility] Last Admin: 11/22/17 13:09 Dose: 10 mg Bisacodyl (Dulcolax) 10 mg IN QDAY PRN PRN Reason: Constipation unrelieved by MOM Carvedilol (Coreg) 12.5 mg PO BID [facility] Last Admin: 11/22/17 22:22 Dose: 12.5 mg Clopidogrel Bisulfate (Plavix) 75 mg PO DAILY [facility] Last Admin: 11/22/17 13:09 Dose: 75 mg Ampicillin Sodium/Sulbactam Sodium (Unasyn/Ns 3 Gm/100 Ml) 3 gm in 100 mls @ 100 mls/hr IV Q6HR [facility] PRN Reason: Protocol Last Admin: 11/23/17 06:35 Dose: 100 mls/hr Sodium Chloride (Nacl 0.9% 1000 Ml) 1,000 mls @ 100 mls/hr IV DIRECT [facility] Last Admin: 11/22/17 17:17 Dose: 100 mls/hr Vancomycin HCl (Vancomycin/0.45 Ns 1 Gm/250 Ml) 1 gm in 250 mls @ 167.007 mls/ hr IV Q24H [facility] Influenza Virus Vaccine Quadrival (Fluarix Quad [id number](36 Mos+) 0.5 ml IM .ONCE ONE Stop: 11/23/17 12:01 Insulin Aspart (Novolog) 6 units SUB-Q TIDAC [facility] Last Admin: 11/23/17 11:00 Dose: 6 units Insulin Aspart (Novolog) 0 units SUB-Q ACHS [facility] PRN Reason: Protocol Last Admin: 11/23/17 08:55 Dose: Not Given Lisinopril (Zestril) 20 mg PO DAILY [facility] Last Admin: 11/22/17 13:10 Dose: 20 mg Magnesium Hydroxide (Milk Of Magnesia) 30 ml PO Q4H PRN PRN Reason: Constipation Ondansetron HCl (Zofran) 4 mg IV Q8H PRN PRN Reason: N/V unrelieved by Reglan Vancomycin HCl (Vancomycin Pharmacy To Dose) 1 each IV PKCONSULT [facility] PRN Reason: Protocol Review of Systems All systems: negative (see HPI) Exam - Constitutional Vitals: Temp Pulse Resp BP Pulse Ox 98.3 F 80 18 163/83 88 11/23/17 07:52 11/23/17 07:52 11/23/17 07:52 11/23/17 07:52 11/23/17 07:52 General appearance: Present: no acute distress - EENT Eyes: Present: EOM intact ENT: hearing intact - Neck Neck: Present: supple - Respiratory Respiratory effort: normal - Extremities Extremities: abnormal (physical examination indicated in HPI. Wet gangrene of the left fourth and fifth digit. Scattered eschars, tiny, of the first, second , and third digit which are improving.) - Abdominal General gastrointestinal: Present: soft - Psychiatric Psychiatric: appropriate mood/affect, cooperative Results - Labs CBC & Chem 7: 11/21/17 16:21 11/21/17 16:21 Labs: Abnormal lab results 11/22/17 11/22/17 11/22/17 Range/Units 12:13 17:23 22:25 POC Glucose 320 H 268 H 167 H (70-105) 11/23/17 Range/Units 11:04 POC Glucose 139 H (70-105) - Imaging and Cardiology Venous US: report reviewed (arterial), image reviewed (arterial) Assessment and Plan 47-year-old male with peripheral vascular disease and left lower extremity gangrene with history of smoking who previously presented with left fourth and fifth digit dry gangrene which was converted to wet gangrene after revascularization. Patient will require amputation of the left fourth and fifth digit, and probable debridement of the second and third digit. Recommend wound care consult, and consult to Dr. Aviles's with wound care for management. Recommend infectious disease consult for wet gangrene. Reviewed arterial study. Based on palpable left dorsalis pedis pulse, and normal EMILEE of the left lower extremity, patient has adequate flow for healing. Discussed with the patient that he has an occluded posterior tibial artery which does not reconstitute until the pedal arch. Discussed with him that if he has difficulty healing, pedal arch reconstruction can be considered versus hyperbaric oxygen. This was discussed with Dr. Ramirez.
[2017-11-23] MEDS ORDERED: VANCOMYCIN/0.45 NS 1 GM/250 ML 1 GM/250 ML BAG IV SCH (12:00)
[2017-11-23] MEDS ORDERED: Fluarix Quad 2017-2018(36 MOS+ IM ONE (12:00)
[2017-11-23 12:09] LABS: Calcium 7.7 mg/dL (8.4-10.2)
--- NOTE | 2017-11-23 13:17 | Consultation ---
History of Present Illness Consult date: 11/23/17 Chief complaint: Gangrene of left 4th and 5th toes - History of present illness History of present illness: Pt is a 47 yo diabetic male without a PCP. He has been evaluated by Vascular and his perfusion is felt to be optimized. He has gangrene of his left 4th and 5th toes. Past History Past Medical History: diabetes, hypertension, PVD Past Surgical History: Other (left lower extremity endovascular revascularization and left ankle surgery) Social history: smoking (former) Family history: no significant family history Medications and Allergies Allergies Allergy/AdvReac Type Severity Reaction Status Date / Time No Known Allergies Allergy Unverified 10/07/17 07:41 Home Medications Medication Instructions Recorded Confirmed Last Taken Type Acetaminophen [Acetaminophen TAB] 325 mg PO Q6H PRN #30 tablet 10/11/17 Unknown Rx HYDROcodone/APAP 5-325 [[place] 1 each PO Q4H PRN #20 tablet 10/11/17 11/21/17 Unknown Rx 5-325 mg TAB] Insulin Aspart [NovoLOG Flexpen] 1 dose SQ AC #1 pen 10/11/17 11/21/17 Unknown Rx Insulin Detemir [Levemir] 10 units SUB-Q QHS #30 day 10/11/17 11/21/17 Unknown Rx Clopidogrel [Plavix] 75 mg PO DAILY 11/21/17 11/21/17 Unknown History Lisinopril [Zestril TAB] 10 mg PO DAILY 11/21/17 11/21/17 Unknown History amLODIPine [Norvasc] 10 mg PO DAILY 11/21/17 11/21/17 Unknown History Active Meds: Active Medications Acetaminophen (Tylenol) 650 mg PO Q4H PRN PRN Reason: Pain MILD(1-3)/Fever >100.5/LUNA Last Admin: 11/22/17 02:09 Dose: 650 mg Amlodipine Besylate (Norvasc) 10 mg PO DAILY [facility] Last Admin: 11/23/17 11:10 Dose: 10 mg Bisacodyl (Dulcolax) 10 mg [place] QDAY PRN PRN Reason: Constipation unrelieved by MOM Carvedilol (Coreg) 12.5 mg PO BID [facility] Last Admin: 11/23/17 11:09 Dose: 12.5 mg Clopidogrel Bisulfate (Plavix) 75 mg PO DAILY [facility] Last Admin: 11/23/17 11:09 Dose: 75 mg Ampicillin Sodium/Sulbactam Sodium (Unasyn/Ns 3 Gm/100 Ml) 3 gm in 100 mls @ 100 mls/hr IV Q6HR [facility] PRN Reason: Protocol Last Admin: 11/23/17 13:00 Dose: 100 mls/hr Sodium Chloride (Nacl 0.9% 1000 Ml) 1,000 mls @ 100 mls/hr IV DIRECT [facility] Last Admin: 11/22/17 17:17 Dose: 100 mls/hr Vancomycin HCl (Vancomycin/0.45 Ns 1 Gm/250 Ml) 1 gm in 250 mls @ 167.007 mls/ hr IV Q24H [facility] Insulin Aspart (Novolog) 6 units SUB-Q TIDAC [facility] Last Admin: 11/23/17 11:00 Dose: 6 units Insulin Aspart (Novolog) 0 units SUB-Q ACHS [facility] PRN Reason: Protocol Last Admin: 11/23/17 08:55 Dose: Not Given Lisinopril (Zestril) 20 mg PO DAILY [facility] Last Admin: 11/23/17 11:10 Dose: 20 mg Magnesium Hydroxide (Milk Of Magnesia) 30 ml PO Q4H PRN PRN Reason: Constipation Ondansetron HCl (Zofran) 4 mg IV Q8H PRN PRN Reason: N/V unrelieved by Tony Vancomycin HCl (Vancomycin Pharmacy To Dose) 1 each IV PKCONSULT [facility] PRN Reason: Protocol Review of Systems All systems: negative (none) Exam Vital Signs Temp Pulse Resp BP Pulse Ox 97.6 F 90 20 179/99 96 11/21/17 16:10 11/21/17 16:10 11/21/17 16:10 11/21/17 16:10 11/21/17 16:10 - General physical appearance Positive: well developed, well nourished, no distress - Eyes Positive: PERRL, normal occular movement - ENT Positive: normal pinna, normal nares, normal mucosa, no hearing loss, no congestion - Neck Positive: no masses, no bruits, trachea midline, no venous distension - Respiratory Positive: normal expansion, normal respiratory effort, clear to auscultation - Cardiovascular Rhythm: regular Heart Sounds: Present: S1 & S2. Absent: rub, click - Extremities Extremities: abnormal (The distal half of the left 4th and 5th toes are gangrenous. There are no signs of appreciable secondary infection. I cannot palpate his left DP or PT pulses.) - Breasts Breasts: deferred - Abdomen Abdomen: Present: soft, bowel sounds normal. Absent: tender, distended Hernia: none - Genitourinary Male Genitourinary: deferred - Neurologic Neurologic: alert and oriented to time, place and person, motor strength and sensation are grossly intact - Musculoskeletal normal gait, normal posture - Psychiatric Psychiatric: appropriate mood/affect, intact judgment & insight Results - Labs 11/21/17 16:21 11/23/17 11:14 Abnormal lab results 11/22/17 11/22/17 11/23/17 Range/Units 17:23 22:25 11:04 BUN (9-20) mg/dL Glucose (75-100) mg/dL POC Glucose 268 H 167 H 139 H (70-105) Calcium (8.4-10.2) mg/dL 11/23/17 Range/Units 11:14 BUN 29 H (9-20) mg/dL Glucose 146 H (75-100) mg/dL POC Glucose (70-105) Calcium 7.7 L (8.4-10.2) mg/dL Diabetes panel 11/23/17 Range/Units 11:14 Sodium 145 D (137-145) mmol/L Potassium 4.2 (3.6-5.0) mmol/L Chloride 105.4 (98-107) mmol/L Carbon Dioxide 27 (22-30) mmol/L BUN 29 H (9-20) mg/dL Creatinine 1.4 (0.8-1.5) mg/dL Glucose 146 H (75-100) mg/dL Calcium 7.7 L (8.4-10.2) mg/dL Calcium panel 11/23/17 Range/Units 11:14 Calcium 7.7 L (8.4-10.2) mg/dL Pituitary panel 11/23/17 Range/Units 11:14 Sodium 145 D (137-145) mmol/L Potassium 4.2 (3.6-5.0) mmol/L Chloride 105.4 (98-107) mmol/L Carbon Dioxide 27 (22-30) mmol/L BUN 29 H (9-20) mg/dL Creatinine 1.4 (0.8-1.5) mg/dL Glucose 146 H (75-100) mg/dL Calcium 7.7 L (8.4-10.2) mg/dL Adrenal panel 11/23/17 Range/Units 11:14 Sodium 145 D (137-145) mmol/L Potassium 4.2 (3.6-5.0) mmol/L Chloride 105.4 (98-107) mmol/L Carbon Dioxide 27 (22-30) mmol/L BUN 29 H (9-20) mg/dL Creatinine 1.4 (0.8-1.5) mg/dL Glucose 146 H (75-100) mg/dL Calcium 7.7 L (8.4-10.2) mg/dL Assessment and Plan - Patient Problems (1) Gangrene of toe of left foot Current Visit: Yes Status: Acute Plan to address problem: 1) Pt ate breakfast today at 11:00 am. 2) I am going out of town tonight. 3) Pt can be discharged on oral antibiotics with [facility] follow up next week. We will schedule him for elective left 4th and 5th toe amputations at that time.
--- NOTE | 2017-11-23 13:53 | Consultation ---
<GINO HEARD - Last Filed: 11/23/17 15:40> History of Present Illness - Reason for Consult Consult date: 11/23/17 Left foot with gangrene - History of Present Illness patient stated that he went to see a new PCP and the PCP referred him to the ER for work up for left foot gangrene. He stated that he was admitted here last month for a blood clot on left side. Patient stated that his foot has been draining with fowl smell. He denies nausea, vomiting, or pain in left foot but stated that had fever and chills. He has not follow up with any physician till one month ago. In the ER her temperature was 97.6, pulse 90, respiratory rate 20, saturation 96 %, blood pressure 179/99. White blood cell count was 6.1, Hgb 12.5. platelets 437. creatinine 1.6. Lactid acid 0.8. CRP 1.0 ID service is seeing her today to help with further antibiotic management. Microbiology: Blood cultures: Repiratory cultures: Urine cultures Current Antimicrobials: unasyn 11/22 vancomycin 11/22 Past History Past Medical History: diabetes, hypertension, PVD Past Surgical History: Other (left lower extremity endovascular revascularization and left ankle surgery) Social history: smoking (former) Family history: no significant family history Medications and Allergies Allergies Allergy/AdvReac Type Severity Reaction Status Date / Time No Known Allergies Allergy Unverified 10/07/17 07:41 Home Medications Medication Instructions Recorded Confirmed Last Taken Type Acetaminophen [Acetaminophen TAB] 325 mg PO Q6H PRN #30 tablet 10/11/17 Unknown Rx HYDROcodone/APAP 5-325 [[place] 1 each PO Q4H PRN #20 tablet 10/11/17 11/21/17 Unknown Rx 5-325 mg TAB] Insulin Aspart [NovoLOG Flexpen] 1 dose SQ AC #1 pen 10/11/17 11/21/17 Unknown Rx Insulin Detemir [Levemir] 10 units SUB-Q QHS #30 day 10/11/17 11/21/17 Unknown Rx Clopidogrel [Plavix] 75 mg PO DAILY 11/21/17 11/21/17 Unknown History Lisinopril [Zestril TAB] 10 mg PO DAILY 11/21/17 11/21/17 Unknown History amLODIPine [Norvasc] 10 mg PO DAILY 11/21/17 11/21/17 Unknown History Active Meds: Active Medications Acetaminophen (Tylenol) 650 mg PO Q4H PRN PRN Reason: Pain MILD(1-3)/Fever >100.5/LUNA Last Admin: 11/22/17 02:09 Dose: 650 mg Amlodipine Besylate (Norvasc) 10 mg PO DAILY [facility] Last Admin: 11/23/17 11:10 Dose: 10 mg Bisacodyl (Dulcolax) 10 mg [place] QDAY PRN PRN Reason: Constipation unrelieved by MOM Carvedilol (Coreg) 12.5 mg PO BID [facility] Last Admin: 11/23/17 11:09 Dose: 12.5 mg Clopidogrel Bisulfate (Plavix) 75 mg PO DAILY [facility] Last Admin: 11/23/17 11:09 Dose: 75 mg Ampicillin Sodium/Sulbactam Sodium (Unasyn/Ns 3 Gm/100 Ml) 3 gm in 100 mls @ 100 mls/hr IV Q6HR [facility] PRN Reason: Protocol Last Admin: 11/23/17 13:00 Dose: 100 mls/hr Sodium Chloride (Nacl 0.9% 1000 Ml) 1,000 mls @ 100 mls/hr IV DIRECT [facility] Last Admin: 11/22/17 17:17 Dose: 100 mls/hr Vancomycin HCl (Vancomycin/0.45 Ns 1 Gm/250 Ml) 1 gm in 250 mls @ 167.007 mls/ hr IV Q24H [facility] Insulin Aspart (Novolog) 6 units SUB-Q TIDAC [facility] Last Admin: 11/23/17 11:00 Dose: 6 units Insulin Aspart (Novolog) 0 units SUB-Q ACHS [facility] PRN Reason: Protocol Last Admin: 11/23/17 08:55 Dose: Not Given Lisinopril (Zestril) 20 mg PO DAILY [facility] Last Admin: 11/23/17 11:10 Dose: 20 mg Magnesium Hydroxide (Milk Of Magnesia) 30 ml PO Q4H PRN PRN Reason: Constipation Ondansetron HCl (Zofran) 4 mg IV Q8H PRN PRN Reason: N/V unrelieved by Reglan Vancomycin HCl (Vancomycin Pharmacy To Dose) 1 each IV PKCONSULT [facility] PRN Reason: Protocol Physical Examination - Physical Exam Narrative exam: Eyes: anicteric sclerae, moist conjunctivae; no lid-lag; PERRLA HENT: Atraumatic; oropharynx clear Neck: Trachea midline; supple, no thyromegaly or lymphadenopathy Lungs: diminished to left lung base CV: RRR, no murmurs Abdomen: Soft, non-tender; no masses or hepatosplenomegaly Extremities: gangrene of his left 4th and 5th toes Skin: warm and dry Psych: calm and cooperative Neuro: alert and oriented Lines: No CVL / PICC - Constitutional Vitals: Vital Signs Temp Pulse Resp BP Pulse Ox 98.4 F 79 20 162/79 93 11/23/17 11:42 11/23/17 11:42 11/23/17 11:42 11/23/17 11:42 11/23/17 11:42 Temperature -Last 24 Hours Temperature 98.4 F Temperature 98.3 F Temperature 97.6 F Temperature 97.9 F Temperature 98.3 F Temperature 98.3 F Temperature 98.3 F Results - Labs CBC & Chem 7: 11/21/17 16:21 11/23/17 11:14 Labs: Abnormal lab results 11/22/17 11/22/17 11/23/17 Range/Units 17:23 22:25 11:04 BUN (9-20) mg/dL Glucose (75-100) mg/dL POC Glucose 268 H 167 H 139 H (70-105) Calcium (8.4-10.2) mg/dL 11/23/17 Range/Units 11:14 BUN 29 H (9-20) mg/dL Glucose 146 H (75-100) mg/dL POC Glucose (70-105) Calcium 7.7 L (8.4-10.2) mg/dL Assessment and Plan Assessment: 1) 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 Sabillon for your consultation, will follow up with you. Gino Heard NP for Dr. Chelsea Mike MD Infectious Diseases Specialist [facility] M [phone] O [phone] <CHELSEA MIKE - Last Filed: 11/23/17 16:50> Medications and Allergies Active Meds: Active Medications Acetaminophen (Tylenol) 650 mg PO Q4H PRN PRN Reason: Pain MILD(1-3)/Fever >100.5/LUNA Last Admin: 11/22/17 02:09 Dose: 650 mg Amlodipine Besylate (Norvasc) 10 mg PO DAILY [facility] Last Admin: 11/23/17 11:10 Dose: 10 mg Bisacodyl (Dulcolax) 10 mg [place] QDAY PRN PRN Reason: Constipation unrelieved by MOM Carvedilol (Coreg) 12.5 mg PO BID [facility] Last Admin: 11/23/17 11:09 Dose: 12.5 mg Clopidogrel Bisulfate (Plavix) 75 mg PO DAILY [facility] Last Admin: 11/23/17 11:09 Dose: 75 mg Doxycycline Hyclate (Vibramycin) 100 mg PO BID [facility] Ampicillin Sodium/Sulbactam Sodium (Unasyn/Ns 3 Gm/100 Ml) 3 gm in 100 mls @ 100 mls/hr IV Q6HR [facility] PRN Reason: Protocol Last Admin: 11/23/17 13:00 Dose: 100 mls/hr Sodium Chloride (Nacl 0.9% 1000 Ml) 1,000 mls @ 100 mls/hr IV DIRECT [facility] Last Admin: 11/22/17 17:17 Dose: 100 mls/hr Insulin Aspart (Novolog) 6 units SUB-Q TIDAC [facility] Last Admin: 11/23/17 11:00 Dose: 6 units Insulin Aspart (Novolog) 0 units SUB-Q ACHS [facility] PRN Reason: Protocol Last Admin: 11/23/17 11:19 Dose: Not Given Lisinopril (Zestril) 20 mg PO DAILY [facility] Last Admin: 11/23/17 11:10 Dose: 20 mg Magnesium Hydroxide (Milk Of Magnesia) 30 ml PO Q4H PRN PRN Reason: Constipation Ondansetron HCl (Zofran) 4 mg IV Q8H PRN PRN Reason: N/V unrelieved by Reglan Physical Examination - Constitutional Vitals: Vital Signs Temp Pulse Resp BP Pulse Ox 98.4 F 79 20 162/79 93 11/23/17 11:42 11/23/17 11:42 11/23/17 11:42 11/23/17 11:42 11/23/17 11:42 Temperature -Last 24 Hours Temperature 98.4 F Temperature 98.3 F Temperature 97.6 F Temperature 97.9 F Temperature 98.3 F Temperature 98.3 F Temperature 98.3 F Results - Labs CBC & Chem 7: 11/21/17 16:21 11/23/17 11:14 Labs: Abnormal lab results 11/22/17 11/22/17 11/23/17 Range/Units 17:23 22:25 11:04 BUN (9-20) mg/dL Glucose (75-100) mg/dL POC Glucose 268 H 167 H 139 H (70-105) Hemoglobin A1c (4-6) % Calcium (8.4-10.2) mg/dL 11/23/17 11/23/17 Range/Units 11:14 14:47 BUN 29 H (9-20) mg/dL Glucose 146 H (75-100) mg/dL POC Glucose (70-105) Hemoglobin A1c 7.0 H (4-6) % Calcium 7.7 L (8.4-10.2) mg/dL
--- NOTE | 2017-11-23 15:20 | Progress Note ---
Assessment and Plan Assessment and plan: patient (He went to see a new PCP today and the PCP referred him to the ER for work up for left foot gangrene. He says he was admitted here last month for a blood clot on left side and was given ABs in the hospital but was not D/C with ABs, as he says. He says he had the gangrene then but it was dry. Since then, he says, it has been draining with fowl smell. He denies nausea, vomiting, or pain in left foot but admit to fever and chills.No follow up with any physician till one month ago. Manages his Diabetes by buying Novolin 70/3k0 from ([employer]) from [facility] Wet Gangrene of toe of left foot IV abx IR consult Arterial duplex scan -likely reperfusion injury, but need 4th and 5th toes amputated Cellulitis of left leg continue abx, per ID SHARLENE (acute kidney injury)/ vasomotor nephropathy avoid nephrotoxins, received IVF and is drinking enough water T2DM (type 2 diabetes mellitus) continue insulins, on 70/30 HTN (hypertension) Cont antihypertensives Hypertensive urgency now improved, continue BP meds DVT prophylaxis Lovenox History Interval history: co of LLE swelling and pain no fever no vomiting, no confusion, Hospitalist Physical - Physical exam Narrative exam: General appearance: Present: no acute distress - EENT Eyes: Present: PERRL ENT: hearing intact - Neck Neck: Present: supple - Respiratory Respiratory effort: normal Respiratory: bilateral: CTA - Cardiovascular Rhythm: regular Heart Sounds: Present: S1 & S2 - Extremities Extremity abnormal: edema (LLE, with gangrenous 4th and 5th toes, appears to be wet gangrene), erythema Peripheral Pulses: within normal limits - Abdominal General gastrointestinal: soft - Integumentary Integumentary: Present: clear, warm - Psychiatric Psychiatric: appropriate mood/affect, intact judgment & insight, memory intact, cooperative - Neurologic Neurologic: CNII-XII intact, no focal deficits, moves all extremities - Constitutional Vitals: Temp Pulse Resp BP Pulse Ox 98.4 F 79 20 162/79 93 11/23/17 11:42 11/23/17 11:42 11/23/17 11:42 11/23/17 11:42 11/23/17 11:42 General appearance: Present: no acute distress Results - Labs CBC & Chem 7: 11/24/17 06:07 11/25/17 04:31 Labs: Laboratory Last Values WBC 12.5 K/mm3 (4.5-11.0) H 11/21/17 16:21 RBC 3.93 M/mm3 (3.65-5.03) 11/21/17 16:21 Hgb 11.9 gm/dl (11.8-15.2) 11/21/17 16:21 Hct 35.8 % (35.5-45.6) 11/21/17 16:21 MCV 91 fl (84-94) 11/21/17 16:21 MCH 30 pg (28-32) 11/21/17 16:21 MCHC 33 % (32-34) 11/21/17 16:21 RDW 14.1 % (13.2-15.2) 11/21/17 16:21 Plt Count 437 K/mm3 (140-440) 11/21/17 16:21 Add Manual Diff Complete 11/21/17 16:21 Total Counted 100 11/21/17 16:21 Seg Neuts % (Manual) 75.0 % (40.0-70.0) H 11/21/17 16:21 Band Neutrophils % 0 % 11/21/17 16:21 Lymphocytes % (Manual) 16.0 % (13.4-35.0) 11/21/17 16:21 Reactive Lymphs % (Man) 0 % 11/21/17 16:21 Monocytes % (Manual) 8.0 % (0.0-7.3) H 11/21/17 16:21 Eosinophils % (Manual) 1.0 % (0.0-4.3) 11/21/17 16:21 Basophils % (Manual) 0 % (0.0-1.8) 11/21/17 16:21 Metamyelocytes % 0 % 11/21/17 16:21 Myelocytes % 0 % 11/21/17 16:21 Promyelocytes % 0 % 11/21/17 16:21 Blast Cells % 0 % 11/21/17 16:21 Nucleated RBC % Not Reportable 11/21/17 16:21 Seg Neutrophils # Man 9.4 K/mm3 (1.8-7.7) H 11/21/17 16:21 Band Neutrophils # 0.0 K/mm3 11/21/17 16:21 Lymphocytes # (Manual) 2.0 K/mm3 (1.2-5.4) 11/21/17 16:21 Abs React Lymphs (Man) 0.0 K/mm3 11/21/17 16:21 Monocytes # (Manual) 1.0 K/mm3 (0.0-0.8) H 11/21/17 16:21 Eosinophils # (Manual) 0.1 K/mm3 (0.0-0.4) 11/21/17 16:21 Basophils # (Manual) 0.0 K/mm3 (0.0-0.1) 11/21/17 16:21 Metamyelocytes # 0.0 K/mm3 11/21/17 16:21 Myelocytes # 0.0 K/mm3 11/21/17 16:21 Promyelocytes # 0.0 K/mm3 11/21/17 16:21 Blast Cells # 0.0 K/mm3 11/21/17 16:21 WBC Morphology Not Reportable 11/21/17 16:21 Hypersegmented Neuts Not Reportable 11/21/17 16:21 Hyposegmented Neuts Not Reportable 11/21/17 16:21 Hypogranular Neuts Not Reportable 11/21/17 16:21 Smudge Cells Not Reportable 11/21/17 16:21 Toxic Granulation Not Reportable 11/21/17 16:21 Toxic Vacuolation Not Reportable 11/21/17 16:21 Dohle Bodies Not Reportable 11/21/17 16:21 Pelger-Huet Anomaly Not Reportable 11/21/17 16:21 Luba Rods Not Reportable 11/21/17 16:21 Platelet Estimate Appears normal 11/21/17 16:21 Clumped Platelets Not Reportable 11/21/17 16:21 Plt Clumps, EDTA Not Reportable 11/21/17 16:21 Large Platelets Not Reportable 11/21/17 16:21 Giant Platelets Not Reportable 11/21/17 16:21 Platelet Satelliting Not Reportable 11/21/17 16:21 Plt Morphology Comment Not Reportable 11/21/17 16:21 RBC Morphology Not Reportable 11/21/17 16:21 Dimorphic RBCs Not Reportable 11/21/17 16:21 Polychromasia Not Reportable 11/21/17 16:21 Hypochromasia Not Reportable 11/21/17 16:21 Poikilocytosis 1+ 11/21/17 16:21 Anisocytosis 1+ 11/21/17 16:21 Microcytosis Not Reportable 11/21/17 16:21 Macrocytosis Not Reportable 11/21/17 16:21 Spherocytes Not Reportable 11/21/17 16:21 Pappenheimer Bodies Not Reportable 11/21/17 16:21 Sickle Cells Not Reportable 11/21/17 16:21 Target Cells Not Reportable 11/21/17 16:21 Tear Drop Cells Not Reportable 11/21/17 16:21 Ovalocytes Not Reportable 11/21/17 16:21 Helmet Cells Not Reportable 11/21/17 16:21 [place] Bodies Not Reportable 11/21/17 16:21 [place] Rings Not Reportable 11/21/17 16:21 [place] Cells Not Reportable 11/21/17 16:21 Bite Cells Not Reportable 11/21/17 16:21 Crenated Cell Not Reportable 11/21/17 16:21 Elliptocytes Not Reportable 11/21/17 16:21 Acanthocytes (Spur) Not Reportable 11/21/17 16:21 Rouleaux Not Reportable 11/21/17 16:21 Hemoglobin C Crystals Not Reportable 11/21/17 16:21 Schistocytes Not Reportable 11/21/17 16:21 Malaria parasites Not Reportable 11/21/17 16:21 ESR 53 mm/Hr (0-20) 11/21/17 16:21 Leobardo Bodies Not Reportable 11/21/17 16:21 Hem Pathologist Commnt No 11/21/17 16:21 Sodium 145 mmol/L (137-145) D 11/23/17 11:14 Potassium 4.2 mmol/L (3.6-5.0) 11/23/17 11:14 Chloride 105.4 mmol/L (98-107) 11/23/17 11:14 Carbon Dioxide 27 mmol/L (22-30) 11/23/17 11:14 Anion Gap 17 mmol/L 11/23/17 11:14 BUN 29 mg/dL (9-20) H 11/23/17 11:14 Creatinine 1.4 mg/dL (0.8-1.5) 11/23/17 11:14 Estimated GFR 54 ml/min 11/23/17 11:14 BUN/Creatinine Ratio 21 % 11/23/17 11:14 Glucose 146 mg/dL (75-100) H 11/23/17 11:14 POC Glucose 139 (70-105) H 11/23/17 11:04 Lactic Acid 0.80 mmol/L (0.7-2.0) 11/21/17 17:33 Calcium 7.7 mg/dL (8.4-10.2) L 11/23/17 11:14 C-Reactive Protein 1.00 mg/dL (0.00-1.30) 11/21/17 16:21
[2017-11-23] MEDS: NACL 0.9% 1000 ML 1,000 ML IV SCH ×2 (18:44→20:09)
[2017-11-23] MEDS: VIBRAMYCIN PO SCH (22:20)
[2017-11-24] MEDS: APRESOLINE IV PRN (04:52)
[2017-11-24] MEDS: UNASYN/NS 3 GM/100 ML 3 GM/100 ML BAG IV SCH ×3 (04:59→18:03)
[2017-11-24] MEDS ORDERED: D50W (25GM) Syringe IV ONE ×2 (06:22→06:35)
[2017-11-24] MEDS: TYLENOL PO PRN (06:26)
[2017-11-24] MEDS ORDERED: D50W (25GM) Syringe IV STA (06:30)
[2017-11-24 06:45] LABS: Basophils # (Auto) 0.1 K/mm3 (0.0-0.1); Basophils % (Auto) 1.1 % (0.0-1.8); Eosinophils # (Auto) 0.6 K/mm3 (0.0-0.4); Hematocrit 31.5 % (35.5-45.6); Hemoglobin 10.7 gm/dl (11.8-15.2); Mean Corpuscular HGB Conc 34 % (32-34); Mean Corpuscular Hemoglobin 30 pg (28-32); Mean Corpuscular Volume 89 fl (84-94); Monocytes # (Auto) 0.5 K/mm3 (0.0-0.8); Monocytes % (Auto) 4.5 % (0.0-7.3); Platelet Count 475 K/mm3 (140-440); Red Blood Count 3.54 M/mm3 (3.65-5.03)
[2017-11-24 07:09] LABS: Calcium 7.3 mg/dL (8.4-10.2)
[2017-11-24] MEDS: NACL 0.9% 1000 ML 1,000 ML IV SCH ×2 (08:27→21:15)
[2017-11-24] MEDS: NOVOLOG SUB-Q SCH ×5 (08:35→23:54)
[2017-11-24] MEDS ORDERED: K-DUR PO ONE (10:03)
--- NOTE | 2017-11-24 10:03 | Progress Note ---
Assessment and Plan Assessment and plan: patient (He went to see a new PCP today and the PCP referred him to the ER for work up for left foot gangrene. He says he was admitted here last month for a blood clot on left side and was given ABs in the hospital but was not D/C with ABs, as he says. He says he had the gangrene then but it was dry. Since then, he says, it has been draining with fowl smell. He denies nausea, vomiting, or pain in left foot but admit to fever and chills.No follow up with any physician till one month ago. Manages his Diabetes by buying Novolin 70/3k0 from ([employer]) from [facility] Wet Gangrene of toe of left foot IV abx IR consult Arterial duplex scan -likely reperfusion injury, but need 4th and 5th toes amputated, will be done on Monday by Dr nichols Cellulitis of left leg continue abx, per ID SHARLENE (acute kidney injury)/ vasomotor nephropathy avoid nephrotoxins, received IVF and is drinking enough water T2DM (type 2 diabetes mellitus) continue insulins, on 30 HTN (hypertension) Cont antihypertensives Hypertensive urgency now improved, continue BP meds DVT prophylaxis Lovenox History Interval history: co of LLE swelling and pain no fever no vomiting, no confusion, Hospitalist Physical - Physical exam Narrative exam: General appearance: Present: no acute distress - EENT Eyes: Present: PERRL ENT: hearing intact - Neck Neck: Present: supple - Respiratory Respiratory effort: normal Respiratory: bilateral: CTA - Cardiovascular Rhythm: regular Heart Sounds: Present: S1 & S2 - Extremities Extremity abnormal: edema (LLE, with gangrenous 4th and 5th toes, appears to be wet gangrene), erythema Peripheral Pulses: within normal limits - Abdominal General gastrointestinal: soft - Integumentary Integumentary: Present: clear, warm - Psychiatric Psychiatric: appropriate mood/affect, intact judgment & insight, memory intact, cooperative - Neurologic Neurologic: CNII-XII intact, no focal deficits, moves all extremities - Constitutional Vitals: Temp Pulse Resp BP Pulse Ox 98.3 F 84 20 185/94 91 11/24/17 07:21 11/24/17 07:21 11/24/17 07:21 11/24/17 07:21 11/24/17 07:21 General appearance: Present: no acute distress Results - Labs CBC & Chem 7: 11/24/17 06:07 11/25/17 04:31 Labs: Laboratory Last Values WBC 11.5 K/mm3 (4.5-11.0) H 11/24/17 06:07 RBC 3.54 M/mm3 (3.65-5.03) L 11/24/17 06:07 Hgb 10.7 gm/dl (11.8-15.2) L 11/24/17 06:07 Hct 31.5 % (35.5-45.6) L 11/24/17 06:07 MCV 89 fl (84-94) 11/24/17 06:07 MCH 30 pg (28-32) 11/24/17 06:07 MCHC 34 % (32-34) 11/24/17 06:07 RDW 14.0 % (13.2-15.2) 11/24/17 06:07 Plt Count 475 K/mm3 (140-440) H 11/24/17 06:07 Lymph % (Auto) 9.0 % (13.4-35.0) L 11/24/17 06:07 [place] % (Auto) 4.5 % (0.0-7.3) 11/24/17 06:07 Eos % (Auto) 5.0 % (0.0-4.3) H 11/24/17 06:07 Baso % (Auto) 1.1 % (0.0-1.8) 11/24/17 06:07 Lymph # 1.0 K/mm3 (1.2-5.4) L 11/24/17 06:07 [place] # 0.5 K/mm3 (0.0-0.8) 11/24/17 06:07 Eos # 0.6 K/mm3 (0.0-0.4) H 11/24/17 06:07 Baso # 0.1 K/mm3 (0.0-0.1) 11/24/17 06:07 Add Manual Diff Complete 11/21/17 16:21 Total Counted 100 11/21/17 16:21 Seg Neutrophils % 80.4 % (40.0-70.0) H 11/24/17 06:07 Seg Neuts % (Manual) 75.0 % (40.0-70.0) H 11/21/17 16:21 Band Neutrophils % 0 % 11/21/17 16:21 Lymphocytes % (Manual) 16.0 % (13.4-35.0) 11/21/17 16:21 Reactive Lymphs % (Man) 0 % 11/21/17 16:21 Monocytes % (Manual) 8.0 % (0.0-7.3) H 11/21/17 16:21 Eosinophils % (Manual) 1.0 % (0.0-4.3) 11/21/17 16:21 Basophils % (Manual) 0 % (0.0-1.8) 11/21/17 16:21 Metamyelocytes % 0 % 11/21/17 16:21 Myelocytes % 0 % 11/21/17 16:21 Promyelocytes % 0 % 11/21/17 16:21 Blast Cells % 0 % 11/21/17 16:21 Nucleated RBC % Not Reportable 11/21/17 16:21 Seg Neutrophils # 9.2 K/mm3 (1.8-7.7) H 11/24/17 06:07 Seg Neutrophils # Man 9.4 K/mm3 (1.8-7.7) H 11/21/17 16:21 Band Neutrophils # 0.0 K/mm3 11/21/17 16:21 Lymphocytes # (Manual) 2.0 K/mm3 (1.2-5.4) 11/21/17 16:21 Abs React Lymphs (Man) 0.0 K/mm3 11/21/17 16:21 Monocytes # (Manual) 1.0 K/mm3 (0.0-0.8) H 11/21/17 16:21 Eosinophils # (Manual) 0.1 K/mm3 (0.0-0.4) 11/21/17 16:21 Basophils # (Manual) 0.0 K/mm3 (0.0-0.1) 11/21/17 16:21 Metamyelocytes # 0.0 K/mm3 11/21/17 16:21 Myelocytes # 0.0 K/mm3 11/21/17 16:21 Promyelocytes # 0.0 K/mm3 11/21/17 16:21 Blast Cells # 0.0 K/mm3 11/21/17 16:21 WBC Morphology Not Reportable 11/21/17 16:21 Hypersegmented Neuts Not Reportable 11/21/17 16:21 Hyposegmented Neuts Not Reportable 11/21/17 16:21 Hypogranular Neuts Not Reportable 11/21/17 16:21 Smudge Cells Not Reportable 11/21/17 16:21 Toxic Granulation Not Reportable 11/21/17 16:21 Toxic Vacuolation Not Reportable 11/21/17 16:21 Dohle Bodies Not Reportable 11/21/17 16:21 Pelger-Huet Anomaly Not Reportable 11/21/17 16:21 Luba Rods Not Reportable 11/21/17 16:21 Platelet Estimate Appears normal 11/21/17 16:21 Clumped Platelets Not Reportable 11/21/17 16:21 Plt Clumps, EDTA Not Reportable 11/21/17 16:21 Large Platelets Not Reportable 11/21/17 16:21 Giant Platelets Not Reportable 11/21/17 16:21 Platelet Satelliting Not Reportable 11/21/17 16:21 Plt Morphology Comment Not Reportable 11/21/17 16:21 RBC Morphology Not Reportable 11/21/17 16:21 Dimorphic RBCs Not Reportable 11/21/17 16:21 Polychromasia Not Reportable 11/21/17 16:21 Hypochromasia Not Reportable 11/21/17 16:21 Poikilocytosis 1+ 11/21/17 16:21 Anisocytosis 1+ 11/21/17 16:21 Microcytosis Not Reportable 11/21/17 16:21 Macrocytosis Not Reportable 11/21/17 16:21 Spherocytes Not Reportable 11/21/17 16:21 Pappenheimer Bodies Not Reportable 11/21/17 16:21 Sickle Cells Not Reportable 11/21/17 16:21 Target Cells Not Reportable 11/21/17 16:21 Tear Drop Cells Not Reportable 11/21/17 16:21 Ovalocytes Not Reportable 11/21/17 16:21 Helmet Cells Not Reportable 11/21/17 16:21 [place] Bodies Not Reportable 11/21/17 16:21 [place] Rings Not Reportable 11/21/17 16:21 [place] Cells Not Reportable 11/21/17 16:21 Bite Cells Not Reportable 11/21/17 16:21 Crenated Cell Not Reportable 11/21/17 16:21 Elliptocytes Not Reportable 11/21/17 16:21 Acanthocytes (Spur) Not Reportable 11/21/17 16:21 Rouleaux Not Reportable 11/21/17 16:21 Hemoglobin C Crystals Not Reportable 11/21/17 16:21 Schistocytes Not Reportable 11/21/17 16:21 Malaria parasites Not Reportable 11/21/17 16:21 ESR 53 mm/Hr (0-20) 11/21/17 16:21 Leobardo Bodies Not Reportable 11/21/17 16:21 Hem Pathologist Commnt No 11/21/17 16:21 Sodium 145 mmol/L (137-145) 11/24/17 06:07 Potassium 3.5 mmol/L (3.6-5.0) L 11/24/17 06:07 Chloride 108.5 mmol/L (98-107) H 11/24/17 06:07 Carbon Dioxide 24 mmol/L (22-30) 11/24/17 06:07 Anion Gap 16 mmol/L 11/24/17 06:07 BUN 26 mg/dL (9-20) H 11/24/17 06:07 Creatinine 1.4 mg/dL (0.8-1.5) 11/24/17 06:07 Estimated GFR 54 ml/min 11/24/17 06:07 BUN/Creatinine Ratio 19 % 11/24/17 06:07 Glucose 43 mg/dL (75-100) L 11/24/17 06:07 POC Glucose 108 (70-105) H 11/24/17 06:53 Hemoglobin A1c 7.0 % (4-6) H 11/23/17 14:47 Lactic Acid 0.80 mmol/L (0.7-2.0) 11/21/17 17:33 Calcium 7.3 mg/dL (8.4-10.2) L 11/24/17 06:07 C-Reactive Protein 1.00 mg/dL (0.00-1.30) 11/21/17 16:21 Urine Creatinine 75.0 mg/dL (0.1-20.0) H 11/23/17 22:19 Urine Sodium 64 mmol/L 11/23/17 22:19 Urine Total Protein 813 mg/dL (5-11.8) H 11/23/17 22:19
[2017-11-24] MEDS: ZESTRIL PO SCH (11:35)
[2017-11-24] MEDS: PLAVIX PO SCH (11:35)
[2017-11-24] MEDS: VIBRAMYCIN PO SCH ×2 (11:35→21:16)
[2017-11-24] MEDS: NORVASC PO SCH (11:35)
[2017-11-24] MEDS: COREG PO SCH ×2 (11:36→21:16)
--- NOTE | 2017-11-24 11:47 | Progress Note ---
<GINO HEARD - Last Filed: 11/24/17 15:28> Assessment and Plan Assessment: 1) Gas gangrene of the left 4th and 5th toe, with underlying osteomyelitis -foot x-ray showed acute ostoemyelitis with gas gangrene and intraosseus gas 2) Cellulitis of left leg -Arterial duplex scan showed that vessels appears patent 3) SHARLENE UA 11/23 + creatinine and protein 4) T2DM; uncontrolled Hgb A1C + 7.0 5) HTN Plan: -continue unazyn and doxycyclin -wound care appreciated -Dr. Aviles following, will schedule him for elective left 4th and 5th toe amputations I will be rounding on Monday Thank you Dr. Sabillon for your consultation, will follow up with you. Gino Heard NP for Dr. Chelsea Mike MD Infectious Diseases Specialist [facility] ([facility]) M [phone] O [phone] Subjective Date of service: 11/24/17 Interval history: I am glad that I get to stay to have my toes amputated, no fever Microbiology: Blood cultures: 11/21 ngtd Repiratory cultures: Urine cultures Current Antimicrobials: unasyn 11/22 doxycyclin 11/23 Previous Antimicrobials: vancomycin 11/22 Objective - Exam Narrative Exam: Eyes: anicteric sclerae, moist conjunctivae; no lid-lag; PERRLA HENT: Atraumatic; oropharynx clear Neck: Trachea midline; supple, no thyromegaly or lymphadenopathy Lungs: CTAB CV: RRR, no murmurs Abdomen: Soft, non-tender; no masses or hepatosplenomegaly Extremities: gangrene of his left 4th and 5th toes Skin: warm and dry with gangrene to his left 4th and 5th toes Psych: calm and cooperative Neuro: alert and oriented Lines: No CVL / PICC - Constitutional Vitals: Vital Signs Temp Pulse Resp BP Pulse Ox 98.3 F 84 20 162/82 91 11/24/17 07:21 11/24/17 11:36 11/24/17 07:21 11/24/17 11:36 11/24/17 07:21 Temperature -Last 24 Hours Temperature 98.3 F Temperature 98.7 F Temperature 99.5 F Temperature 98.5 F Temperature 97.4 F - Labs CBC & Chem 7: 11/24/17 06:07 11/24/17 06:07 Labs: Abnormal lab results 11/23/17 11/23/17 11/23/17 Range/Units 11:14 14:47 17:20 WBC (4.5-11.0) K/mm3 RBC (3.65-5.03) M/mm3 Hgb (11.8-15.2) gm/dl Hct (35.5-45.6) % Plt Count (140-440) K/mm3 Lymph % (Auto) (13.4-35.0) % Eos % (Auto) (0.0-4.3) % Lymph # (1.2-5.4) K/mm3 Eos # (0.0-0.4) K/mm3 Seg Neutrophils % (40.0-70.0) % Seg Neutrophils # (1.8-7.7) K/mm3 Potassium (3.6-5.0) mmol/L Chloride (98-107) mmol/L BUN 29 H (9-20) mg/dL Glucose 146 H (75-100) mg/dL POC Glucose 283 H (70-105) Hemoglobin A1c 7.0 H (4-6) % Calcium 7.7 L (8.4-10.2) mg/dL Urine Creatinine (0.1-20.0) mg/dL Urine Total Protein (5-11.8) mg/dL 11/23/17 11/23/17 11/24/17 Range/Units 21:13 22:19 06:07 WBC 11.5 H (4.5-11.0) K/mm3 RBC 3.54 L (3.65-5.03) M/mm3 Hgb 10.7 L (11.8-15.2) gm/dl Hct 31.5 L (35.5-45.6) % Plt Count 475 H (140-440) K/mm3 Lymph % (Auto) 9.0 L (13.4-35.0) % Eos % (Auto) 5.0 H (0.0-4.3) % Lymph # 1.0 L (1.2-5.4) K/mm3 Eos # 0.6 H (0.0-0.4) K/mm3 Seg Neutrophils % 80.4 H (40.0-70.0) % Seg Neutrophils # 9.2 H (1.8-7.7) K/mm3 Potassium (3.6-5.0) mmol/L Chloride (98-107) mmol/L BUN (9-20) mg/dL Glucose (75-100) mg/dL POC Glucose 205 H (70-105) Hemoglobin A1c (4-6) % Calcium (8.4-10.2) mg/dL Urine Creatinine 75.0 H (0.1-20.0) mg/dL Urine Total Protein 813 H (5-11.8) mg/dL 11/24/17 11/24/17 11/24/17 Range/Units 06:07 06:23 06:53 WBC (4.5-11.0) K/mm3 RBC (3.65-5.03) M/mm3 Hgb (11.8-15.2) gm/dl Hct (35.5-45.6) % Plt Count (140-440) K/mm3 Lymph % (Auto) (13.4-35.0) % Eos % (Auto) (0.0-4.3) % Lymph # (1.2-5.4) K/mm3 Eos # (0.0-0.4) K/mm3 Seg Neutrophils % (40.0-70.0) % Seg Neutrophils # (1.8-7.7) K/mm3 Potassium 3.5 L (3.6-5.0) mmol/L Chloride 108.5 H (98-107) mmol/L BUN 26 H (9-20) mg/dL Glucose 43 L (75-100) mg/dL POC Glucose < 40 L 108 H (70-105) Hemoglobin A1c (4-6) % Calcium 7.3 L (8.4-10.2) mg/dL Urine Creatinine (0.1-20.0) mg/dL Urine Total Protein (5-11.8) mg/dL <CHELSEA MIKE - Last Filed: 11/24/17 16:37> Objective - Constitutional Vitals: Vital Signs Temp Pulse Resp BP Pulse Ox 98.8 F 76 20 136/73 93 11/24/17 16:14 11/24/17 16:14 11/24/17 16:14 11/24/17 16:14 11/24/17 16:14 Temperature -Last 24 Hours Temperature 98.8 F Temperature 98.3 F Temperature 98.7 F Temperature 99.5 F Temperature 98.5 F Temperature 97.4 F - Labs CBC & Chem 7: 11/24/17 06:07 11/24/17 06:07 Labs: Abnormal lab results 11/23/17 11/23/17 11/23/17 Range/Units 17:20 21:13 22:19 WBC (4.5-11.0) K/mm3 RBC (3.65-5.03) M/mm3 Hgb (11.8-15.2) gm/dl Hct (35.5-45.6) % Plt Count (140-440) K/mm3 Lymph % (Auto) (13.4-35.0) % Eos % (Auto) (0.0-4.3) % Lymph # (1.2-5.4) K/mm3 Eos # (0.0-0.4) K/mm3 Seg Neutrophils % (40.0-70.0) % Seg Neutrophils # (1.8-7.7) K/mm3 Potassium (3.6-5.0) mmol/L Chloride (98-107) mmol/L BUN (9-20) mg/dL Glucose (75-100) mg/dL POC Glucose 283 H 205 H (70-105) Calcium (8.4-10.2) mg/dL Urine Creatinine 75.0 H (0.1-20.0) mg/dL Urine Total Protein 813 H (5-11.8) mg/dL 11/24/17 11/24/17 11/24/17 Range/Units 06:07 06:07 06:23 WBC 11.5 H (4.5-11.0) K/mm3 RBC 3.54 L (3.65-5.03) M/mm3 Hgb 10.7 L (11.8-15.2) gm/dl Hct 31.5 L (35.5-45.6) % Plt Count 475 H (140-440) K/mm3 Lymph % (Auto) 9.0 L (13.4-35.0) % Eos % (Auto) 5.0 H (0.0-4.3) % Lymph # 1.0 L (1.2-5.4) K/mm3 Eos # 0.6 H (0.0-0.4) K/mm3 Seg Neutrophils % 80.4 H (40.0-70.0) % Seg Neutrophils # 9.2 H (1.8-7.7) K/mm3 Potassium 3.5 L (3.6-5.0) mmol/L Chloride 108.5 H (98-107) mmol/L BUN 26 H (9-20) mg/dL Glucose 43 L (75-100) mg/dL POC Glucose < 40 L (70-105) Calcium 7.3 L (8.4-10.2) mg/dL Urine Creatinine (0.1-20.0) mg/dL Urine Total Protein (5-11.8) mg/dL 11/24/17 11/24/17 Range/Units 06:53 16:22 WBC (4.5-11.0) K/mm3 RBC (3.65-5.03) M/mm3 Hgb (11.8-15.2) gm/dl Hct (35.5-45.6) % Plt Count (140-440) K/mm3 Lymph % (Auto) (13.4-35.0) % Eos % (Auto) (0.0-4.3) % Lymph # (1.2-5.4) K/mm3 Eos # (0.0-0.4) K/mm3 Seg Neutrophils % (40.0-70.0) % Seg Neutrophils # (1.8-7.7) K/mm3 Potassium (3.6-5.0) mmol/L Chloride (98-107) mmol/L BUN (9-20) mg/dL Glucose (75-100) mg/dL POC Glucose 108 H 126 H (70-105) Calcium (8.4-10.2) mg/dL Urine Creatinine (0.1-20.0) mg/dL Urine Total Protein (5-11.8) mg/dL
--- NOTE | 2017-11-24 12:12 | Progress Note ---
Assessment and Plan Impression * Acute on chronic renal failure * Left foot infection * Hypertension * Diabetes * Proteinuria Recommendations * Renal function seems to have improved. Most likely at baseline. * Fractional excretion of sodium is 0.8% * Urine protein creatinine ratio is 10.8 g/g. Continue BLANKA inhibitor * Check renal ultrasound to assess kidney size and echogenicity * He most likely has underlying diabetic nephropathy. Shall also check vasculitis workup to rule out other causes of nephrotic syndrome * Avoid nephrotoxins * Continue gentle hydration Subjective Date of service: 11/24/17 Interval history: Patient is comfortable this morning. Denies any shortness of breath. No nausea or vomiting. Objective - Vital Signs Vital signs: Vital Signs - 12hr 11/24/17 11/24/17 11/24/17 03:57 04:52 07:21 Temperature 98.7 F 98.3 F Pulse Rate 77 84 Respiratory 18 20 Rate Blood Pressure 199/101 199/101 185/94 O2 Sat by Pulse 88 91 Oximetry 11/24/17 11/24/17 11:35 11:36 Temperature Pulse Rate 84 84 Respiratory Rate Blood Pressure 162/82 162/82 O2 Sat by Pulse Oximetry - General Appearance General appearance: well-developed, well-nourished, appears stated age EENT: PERRL, mucous membranes moist Neck: no JVD, no thyromegaly, no carotid bruit, supple Respiratory: Present: Clear to Ascultation Cardiology: regular, normal heart rate, S1S2, no murmurs Gastrointestinal: normal, normoactive bowel sounds Integumentary: no rash, other (left foot wrapped with a bandage) - Lab 11/24/17 06:07 11/24/17 06:07 Most recent lab results Calcium 7.3 mg/dL (8.4-10.2) L 11/24/17 06:07 Urine Creatinine 75.0 mg/dL (0.1-20.0) H 11/23/17 22:19 Urine Sodium 64 mmol/L 11/23/17 22:19 Urine Total Protein 813 mg/dL (5-11.8) H 11/23/17 22:19
[2017-11-24 15:37] LABS: Hepatitis A Antibody IgM Non-Reactive (NonReactive); Hepatitis B Core IgM Non-Reactive (NonReactive); Hepatitis B Surface Antigen Non-Reactive (Negative); Hepatitis C Virus Antibody Non-Reactive (NonReactive)
--- NOTE | 2017-11-24 16:48 | Vascular Lab Report ---
LEFT UPPER EXTREMITY VENOUS DUPLEX: REASON FOR EXAM: Swelling of the left upper extremity COMMENTS ON THE LEFT: There is an acute superficial venous thrombus noted in the left cephalic vein extending from the upper forearm to the antecubital fossa into the lower arm. No deep venous thrombus. The remaining veins visualized are freely compressible without evidence of internal echogenicity. Spontaneous and phasic flow is present proximally. COMMENTS ON THE RIGHT: The subclavian and internal jugular veins are free of thrombus. IMPRESSION: Acute superficial venous thrombus in the left upper extremity at the location of the IV as described above. No deep venous thrombosis.
--- NOTE | 2017-11-24 17:16 | Vascular Lab Report ---
LOWER EXTREMITY ARTERIAL DUPLEX: REASON FOR EXAM: Peripheral arterial disease. COMMENTS ON THE RIGHT: Triphasic waveforms are seen proximally. Triphasic waveforms are seen distally except for the posterior tibial artery which has monophasic flow. There is an increase in velocity in the right is proximal superficial femoral artery to the right mid superficial femoral artery with a doubling of velocities, but the waveform is still triphasic. No focal significant plaque is identified. Findings are consistent with abnormal perfusion with stenosis in the right superficial femoral artery and disease in the right posterior tibial artery. Findings are consistent with the ability to heal distal wounds. COMMENTS ON THE LEFT: Triphasic waveforms are seen proximally. Since prior procedure, the femoral artery waveforms are now triphasic. Monophasic waveforms are seen distally. There is a significant decline in the velocities within the posterior tibial artery distribution. No focal significant plaque is identified. Findings are consistent with abnormal perfusion with infrapopliteal arterial disease. Findings are consistent with the ability to heal distal wounds. IMPRESSION: RIGHT: Stenosis in the right superficial femoral artery with doubling of velocities but preserved triphasic waveforms, suggesting that this is not hemodynamically significant. Disease in the right posterior tibial artery distribution. LEFT:Infrapopliteal arterial disease worst in the posterior tibial artery distribution.
--- NOTE | 2017-11-24 17:19 | Vascular Lab Report ---
LOWER EXTREMITY ARTERIAL PHYSIOLOGIC STUDY: REASON FOR EXAM: Peripheral arterial disease. COMMENTS ON THE RIGHT: Ankle brachial index is 0.93. This value is normal. Toe brachial index is not compressible. This value is abnormal. Preserved waveform of the first digit is present. Wound healing is likely. Pulse volume recording at the level of the ankle is decreased in amplitude with some spectral broadening. Exercise testing was not done. COMMENTS ON THE LEFT: Ankle brachial index is 0.97. This value is normal. Toe brachial index is not compressible. This value is abnormal. Preserved waveform in the first digit is present. Wound healing is likely. Pulse volume recording at the level of the ankle is relatively normal with mild loss of the dicrotic notch. Exercise testing was not done. IMPRESSION: RIGHT: Mild arterial disease. Although TBI is noncompressible, the first digital waveform is preserved. LEFT:No hemodynamically significant arterial disease. Although TBI is noncompressible, the first digital waveform is preserved.
[2017-11-24] MEDS ORDERED: LEVEMIR SUB-Q SCH (22:00)
[2017-11-25 05:51] LABS: Calcium 6.9 mg/dL (8.4-10.2)
[2017-11-25] MEDS: UNASYN/NS 3 GM/100 ML 3 GM/100 ML BAG IV SCH ×4 (06:18→18:20)
[2017-11-25] MEDS: NOVOLOG SUB-Q SCH ×3 (08:30→17:34)
[2017-11-25] MEDS: NACL 0.9% 1000 ML 1,000 ML IV SCH (09:15)
[2017-11-25] MEDS: PLAVIX PO SCH (11:22)
[2017-11-25] MEDS: COREG PO SCH ×2 (11:23→22:14)
[2017-11-25] MEDS: VIBRAMYCIN PO SCH ×2 (11:23→22:14)
[2017-11-25] MEDS: ZESTRIL PO SCH (11:23)
[2017-11-25] MEDS: NORVASC PO SCH (11:24)
--- NOTE | 2017-11-25 11:27 | Progress Note ---
Assessment and Plan Impression * Acute on chronic renal failure * Left foot infection * Hypertension * Diabetes * Proteinuria Recommendations * Renal function is relatively stable . Most likely at baseline. * Fractional excretion of sodium is 0.8% * Urine protein creatinine ratio is 10.8 g/g. Continue BLANKA inhibitor * Check renal ultrasound to assess kidney size and echogenicity * He most likely has underlying diabetic nephropathy. Follow-up results of vasculitis workup to rule out other causes of nephrotic syndrome * Avoid nephrotoxins * Shall discontinue his IV fluid for now Subjective Date of service: 11/25/17 Interval history: Patient is comfortable. Denies any shortness of breath. No nausea vomiting or diarrhea Objective - Vital Signs Vital signs: Vital Signs - 12hr 11/25/17 11/25/17 11/25/17 08:01 11:23 11:24 Temperature 98.9 F Pulse Rate 78 78 78 Respiratory 20 Rate Blood Pressure 159/77 159/77 159/77 O2 Sat by Pulse 93 Oximetry - General Appearance General appearance: well-developed, well-nourished, appears stated age EENT: PERRL, mucous membranes moist Neck: no JVD, no thyromegaly, no carotid bruit, supple Respiratory: Present: Clear to Ascultation Cardiology: regular, normal heart rate, S1S2, no murmurs Gastrointestinal: normal, normoactive bowel sounds Integumentary: other (left foot wrapped with a bandage. 1+ pitting edema) - Lab 11/24/17 06:07 11/25/17 04:31 Most recent lab results Calcium 6.9 mg/dL (8.4-10.2) L 11/25/17 04:31 Urine Creatinine 75.0 mg/dL (0.1-20.0) H 11/23/17 22:19 Urine Sodium 64 mmol/L 11/23/17 22:19 Urine Total Protein 813 mg/dL (5-11.8) H 11/23/17 22:19
--- NOTE | 2017-11-25 12:51 | Progress Note ---
Assessment and Plan Assessment and plan: patient (He went to see a new PCP today and the PCP referred him to the ER for work up for left foot gangrene. He says he was admitted here last month for a blood clot on left side and was given ABs in the hospital but was not D/C with ABs, as he says. He says he had the gangrene then but it was dry. Since then, he says, it has been draining with fowl smell. He denies nausea, vomiting, or pain in left foot but admit to fever and chills.No follow up with any physician till one month ago. Manages his Diabetes by buying Novolin 70/3k0 from ([employer]) from [facility] Wet Gangrene of toe of left foot IV abx IR consult Arterial duplex scan -likely reperfusion injury, but need 4th and 5th toes amputated, will be done on Monday by Dr nichols Cellulitis of left leg continue abx, per ID SHARLENE (acute kidney injury)/ vasomotor nephropathy avoid nephrotoxins, received IVF and is drinking enough water T2DM (type 2 diabetes mellitus) continue insulins, on 30 HTN (hypertension) Cont antihypertensives Hypertensive urgency now improved, continue BP meds DVT prophylaxis Lovenox History Interval history: co of LLE swelling and pain no fever no vomiting, no confusion, Hospitalist Physical - Physical exam Narrative exam: General appearance: Present: no acute distress - EENT Eyes: Present: PERRL ENT: hearing intact - Neck Neck: Present: supple - Respiratory Respiratory effort: normal Respiratory: bilateral: CTA - Cardiovascular Rhythm: regular Heart Sounds: Present: S1 & S2 - Extremities Extremity abnormal: edema (LLE, with gangrenous 4th and 5th toes, appears to be wet gangrene), erythema Peripheral Pulses: within normal limits - Abdominal General gastrointestinal: soft - Integumentary Integumentary: Present: clear, warm - Psychiatric Psychiatric: appropriate mood/affect, intact judgment & insight, memory intact, cooperative - Neurologic Neurologic: CNII-XII intact, no focal deficits, moves all extremities - Constitutional Vitals: Temp Pulse Resp BP Pulse Ox 98.9 F 78 20 159/77 93 11/25/17 08:01 11/25/17 11:24 11/25/17 08:01 11/25/17 11:24 11/25/17 08:01 General appearance: Present: no acute distress Results - Labs CBC & Chem 7: 11/24/17 06:07 11/25/17 04:31 Labs: Laboratory Last Values WBC 11.5 K/mm3 (4.5-11.0) H 11/24/17 06:07 RBC 3.54 M/mm3 (3.65-5.03) L 11/24/17 06:07 Hgb 10.7 gm/dl (11.8-15.2) L 11/24/17 06:07 Hct 31.5 % (35.5-45.6) L 11/24/17 06:07 MCV 89 fl (84-94) 11/24/17 06:07 MCH 30 pg (28-32) 11/24/17 06:07 MCHC 34 % (32-34) 11/24/17 06:07 RDW 14.0 % (13.2-15.2) 11/24/17 06:07 Plt Count 475 K/mm3 (140-440) H 11/24/17 06:07 Lymph % (Auto) 9.0 % (13.4-35.0) L 11/24/17 06:07 [place] % (Auto) 4.5 % (0.0-7.3) 11/24/17 06:07 Eos % (Auto) 5.0 % (0.0-4.3) H 11/24/17 06:07 Baso % (Auto) 1.1 % (0.0-1.8) 11/24/17 06:07 Lymph # 1.0 K/mm3 (1.2-5.4) L 11/24/17 06:07 [place] # 0.5 K/mm3 (0.0-0.8) 11/24/17 06:07 Eos # 0.6 K/mm3 (0.0-0.4) H 11/24/17 06:07 Baso # 0.1 K/mm3 (0.0-0.1) 11/24/17 06:07 Add Manual Diff Complete 11/21/17 16:21 Total Counted 100 11/21/17 16:21 Seg Neutrophils % 80.4 % (40.0-70.0) H 11/24/17 06:07 Seg Neuts % (Manual) 75.0 % (40.0-70.0) H 11/21/17 16:21 Band Neutrophils % 0 % 11/21/17 16:21 Lymphocytes % (Manual) 16.0 % (13.4-35.0) 11/21/17 16:21 Reactive Lymphs % (Man) 0 % 11/21/17 16:21 Monocytes % (Manual) 8.0 % (0.0-7.3) H 11/21/17 16:21 Eosinophils % (Manual) 1.0 % (0.0-4.3) 11/21/17 16:21 Basophils % (Manual) 0 % (0.0-1.8) 11/21/17 16:21 Metamyelocytes % 0 % 11/21/17 16:21 Myelocytes % 0 % 11/21/17 16:21 Promyelocytes % 0 % 11/21/17 16:21 Blast Cells % 0 % 11/21/17 16:21 Nucleated RBC % Not Reportable 11/21/17 16:21 Seg Neutrophils # 9.2 K/mm3 (1.8-7.7) H 11/24/17 06:07 Seg Neutrophils # Man 9.4 K/mm3 (1.8-7.7) H 11/21/17 16:21 Band Neutrophils # 0.0 K/mm3 11/21/17 16:21 Lymphocytes # (Manual) 2.0 K/mm3 (1.2-5.4) 11/21/17 16:21 Abs React Lymphs (Man) 0.0 K/mm3 11/21/17 16:21 Monocytes # (Manual) 1.0 K/mm3 (0.0-0.8) H 11/21/17 16:21 Eosinophils # (Manual) 0.1 K/mm3 (0.0-0.4) 11/21/17 16:21 Basophils # (Manual) 0.0 K/mm3 (0.0-0.1) 11/21/17 16:21 Metamyelocytes # 0.0 K/mm3 11/21/17 16:21 Myelocytes # 0.0 K/mm3 11/21/17 16:21 Promyelocytes # 0.0 K/mm3 11/21/17 16:21 Blast Cells # 0.0 K/mm3 11/21/17 16:21 WBC Morphology Not Reportable 11/21/17 16:21 Hypersegmented Neuts Not Reportable 11/21/17 16:21 Hyposegmented Neuts Not Reportable 11/21/17 16:21 Hypogranular Neuts Not Reportable 11/21/17 16:21 Smudge Cells Not Reportable 11/21/17 16:21 Toxic Granulation Not Reportable 11/21/17 16:21 Toxic Vacuolation Not Reportable 11/21/17 16:21 Dohle Bodies Not Reportable 11/21/17 16:21 Pelger-Huet Anomaly Not Reportable 11/21/17 16:21 Luba Rods Not Reportable 11/21/17 16:21 Platelet Estimate Appears normal 11/21/17 16:21 Clumped Platelets Not Reportable 11/21/17 16:21 Plt Clumps, EDTA Not Reportable 11/21/17 16:21 Large Platelets Not Reportable 11/21/17 16:21 Giant Platelets Not Reportable 11/21/17 16:21 Platelet Satelliting Not Reportable 11/21/17 16:21 Plt Morphology Comment Not Reportable 11/21/17 16:21 RBC Morphology Not Reportable 11/21/17 16:21 Dimorphic RBCs Not Reportable 11/21/17 16:21 Polychromasia Not Reportable 11/21/17 16:21 Hypochromasia Not Reportable 11/21/17 16:21 Poikilocytosis 1+ 11/21/17 16:21 Anisocytosis 1+ 11/21/17 16:21 Microcytosis Not Reportable 11/21/17 16:21 Macrocytosis Not Reportable 11/21/17 16:21 Spherocytes Not Reportable 11/21/17 16:21 Pappenheimer Bodies Not Reportable 11/21/17 16:21 Sickle Cells Not Reportable 11/21/17 16:21 Target Cells Not Reportable 11/21/17 16:21 Tear Drop Cells Not Reportable 11/21/17 16:21 Ovalocytes Not Reportable 11/21/17 16:21 Helmet Cells Not Reportable 11/21/17 16:21 [place] Bodies Not Reportable 11/21/17 16:21 [place] Rings Not Reportable 11/21/17 16:21 [place] Cells Not Reportable 11/21/17 16:21 Bite Cells Not Reportable 11/21/17 16:21 Crenated Cell Not Reportable 11/21/17 16:21 Elliptocytes Not Reportable 11/21/17 16:21 Acanthocytes (Spur) Not Reportable 11/21/17 16:21 Rouleaux Not Reportable 11/21/17 16:21 Hemoglobin C Crystals Not Reportable 11/21/17 16:21 Schistocytes Not Reportable 11/21/17 16:21 Malaria parasites Not Reportable 11/21/17 16:21 ESR 53 mm/Hr (0-20) 11/21/17 16:21 Leobardo Bodies Not Reportable 11/21/17 16:21 Hem Pathologist Commnt No 11/21/17 16:21 Sodium 143 mmol/L (137-145) 11/25/17 04:31 Potassium 3.7 mmol/L (3.6-5.0) 11/25/17 04:31 Chloride 107.2 mmol/L (98-107) H 11/25/17 04:31 Carbon Dioxide 24 mmol/L (22-30) 11/25/17 04:31 Anion Gap 16 mmol/L 11/25/17 04:31 BUN 24 mg/dL (9-20) H 11/25/17 04:31 Creatinine 1.6 mg/dL (0.8-1.5) H 11/25/17 04:31 Estimated GFR 46 ml/min 11/25/17 04:31 BUN/Creatinine Ratio 15 % 11/25/17 04:31 Glucose 60 mg/dL (75-100) L 11/25/17 04:31 POC Glucose 177 (70-105) H 11/25/17 12:01 Hemoglobin A1c 7.0 % (4-6) H 11/23/17 14:47 Lactic Acid 0.80 mmol/L (0.7-2.0) 11/21/17 17:33 Calcium 6.9 mg/dL (8.4-10.2) L 11/25/17 04:31 C-Reactive Protein 1.00 mg/dL (0.00-1.30) 11/21/17 16:21 Urine Creatinine 75.0 mg/dL (0.1-20.0) H 11/23/17 22:19 Urine Sodium 64 mmol/L 11/23/17 22:19 Urine Total Protein 813 mg/dL (5-11.8) H 11/23/17 22:19 Hepatitis A IgM Ab Non-reactive (NonReactive) 11/24/17 13:42 Hep Bs Antigen Non-reactive (Negative) 11/24/17 13:42 Hep B Core IgM Ab Non-reactive (NonReactive) 11/24/17 13:42 Hepatitis C Antibody Non-reactive (NonReactive) 11/24/17 13:42
--- NOTE | 2017-11-25 17:09 | Ultrasound Report ---
FINAL REPORT EXAM: US RENAL BILAT HISTORY: renal failure TECHNIQUE: Ultrasound examination of the kidneys PRIORS: None. FINDINGS: Visualized right kidney: 11.6 x 6.8 x 6.0 cm. Visualized left kidney: 12.4 x 6.2 x 5.2 cm. Renal cortical thickness is 21 mm on the right and 16 mm on the left. Focal lesion: None Calculus: None Hydronephrosis: None Perinephric fluid: None Urinary bladder: No evidence of focal abnormality in visible portion. Bilateral pleural effusions noted. Slight ascites noted anterior to the urinary bladder. IMPRESSION: No sonographic evidence of renal pathology Bilateral pleural effusions Slight pelvic ascites
[2017-11-25] MEDS ORDERED: ZESTRIL PO SCH (20:54)
[2017-11-25] MEDS ORDERED: LEVEMIR SUB-Q SCH (22:00)
[2017-11-25 22:53] LABS: Albumin 2.1 g/dL (3.8-4.8); Gamma Globulin 0.9 g/dL (0.8-1.7)
[2017-11-26] MEDS: NOVOLOG SUB-Q SCH ×5 (00:43→22:56)
[2017-11-26] MEDS: UNASYN/NS 3 GM/100 ML 3 GM/100 ML BAG IV SCH ×5 (01:01→23:00)
[2017-11-26] MEDS: APRESOLINE IV PRN (01:02)
[2017-11-26 05:43] LABS: Calcium 7.1 mg/dL (8.4-10.2)
[2017-11-26] MEDS: COREG PO SCH ×2 (09:16→21:16)
[2017-11-26] MEDS: PLAVIX PO SCH (09:16)
[2017-11-26] MEDS: VIBRAMYCIN PO SCH ×2 (09:16→21:17)
[2017-11-26] MEDS: NORVASC PO SCH (09:17)
--- NOTE | 2017-11-26 12:05 | Progress Note ---
Assessment and Plan Impression * Acute on chronic renal failure * Left foot infection * Hypertension * Diabetes * Proteinuria Recommendations * Renal function is relatively stable . Most likely at baseline. * Fractional excretion of sodium is 0.8% * Urine protein creatinine ratio is 10.8 g/g. Continue BLANKA inhibitor * renal ultrasound essentially normal * He most likely has underlying diabetic nephropathy. Follow-up results of vasculitis workup to rule out other causes of nephrotic syndrome * Avoid nephrotoxins * IV fluids still infusing. Shall discontinue his IV fluid Subjective Date of service: 11/26/17 Interval history: Patient is comfortable. Denies any shortness of breath. No nausea or vomiting Objective - Vital Signs Vital signs: Vital Signs - 12hr 11/26/17 11/26/17 11/26/17 00:41 01:02 02:11 Temperature 98.4 F Pulse Rate 72 72 69 Respiratory 20 Rate Blood Pressure 175/85 175/85 Blood Pressure 137/62 [Left] O2 Sat by Pulse 92 Oximetry 11/26/17 11/26/17 11/26/17 07:20 09:16 09:17 Temperature 98.9 F Pulse Rate 73 73 73 Respiratory 18 Rate Blood Pressure 177/90 177/90 Blood Pressure [Left] O2 Sat by Pulse 92 Oximetry - General Appearance General appearance: well-developed, well-nourished, appears stated age EENT: PERRL, mucous membranes moist Neck: no JVD, no thyromegaly, no carotid bruit, supple Respiratory: Present: Clear to Ascultation Cardiology: regular, normal heart rate, S1S2, no murmurs Gastrointestinal: normal, normoactive bowel sounds Integumentary: no rash, other (left foot wrapped with a bandage. 1+ pitting edema) - Lab 11/24/17 06:07 11/26/17 04:47 Most recent lab results Calcium 7.1 mg/dL (8.4-10.2) L 11/26/17 04:47 Urine Creatinine 75.0 mg/dL (0.1-20.0) H 11/23/17 22:19 Urine Sodium 64 mmol/L 11/23/17 22:19 Urine Total Protein 813 mg/dL (5-11.8) H 11/23/17 22:19
[2017-11-26] MEDS: ZESTRIL PO SCH (21:13)
--- NOTE | 2017-11-26 21:23 | Progress Note ---
Assessment and Plan Assessment and plan: patient (He went to see a new PCP today and the PCP referred him to the ER for work up for left foot gangrene. He says he was admitted here last month for a blood clot on left side and was given ABs in the hospital but was not D/C with ABs, as he says. He says he had the gangrene then but it was dry. Since then, he says, it has been draining with fowl smell. He denies nausea, vomiting, or pain in left foot but admit to fever and chills.No follow up with any physician till one month ago. Manages his Diabetes by buying Novolin 70/3k0 from ([employer]) from [facility] Wet Gangrene of 4th and 5th toes of left foot IV abx case dw vascular surgery He has good distal perfusion since recent angioplasty/reperfusion last month -likely reperfusion injury, but need 4th and 5th toes amputated, will be done on Monday by Dr nichols Cellulitis of left leg continue abx, per ID SHARLENE (acute kidney injury)/ vasomotor nephropathy avoid nephrotoxins, received IVF and is drinking enough water T2DM (type 2 diabetes mellitus) continue insulins, on 70/30 HTN (hypertension) Cont antihypertensives Hypertensive urgency now improved, continue BP meds DVT prophylaxis Lovenox History Interval history: co of LLE swelling and pain no fever no vomiting, no confusion, Hospitalist Physical - Physical exam Narrative exam: General appearance: Present: no acute distress - EENT Eyes: Present: PERRL ENT: hearing intact - Neck Neck: Present: supple - Respiratory Respiratory effort: normal Respiratory: bilateral: CTA - Cardiovascular Rhythm: regular Heart Sounds: Present: S1 & S2 - Extremities Extremity abnormal: edema (LLE, with gangrenous 4th and 5th toes, appears to be wet gangrene), erythema Peripheral Pulses: within normal limits - Abdominal General gastrointestinal: soft - Integumentary Integumentary: Present: clear, warm - Psychiatric Psychiatric: appropriate mood/affect, intact judgment & insight, memory intact, cooperative - Neurologic Neurologic: CNII-XII intact, no focal deficits, moves all extremities - Constitutional Vitals: Temp Pulse Resp BP Pulse Ox 98.6 F 68 20 150/82 92 11/26/17 15:54 11/26/17 21:16 11/26/17 15:54 11/26/17 21:16 11/26/17 15:54 General appearance: Present: no acute distress Results - Labs CBC & Chem 7: 11/24/17 06:07 11/26/17 04:47 Labs: Laboratory Last Values WBC 11.5 K/mm3 (4.5-11.0) H 11/24/17 06:07 RBC 3.54 M/mm3 (3.65-5.03) L 11/24/17 06:07 Hgb 10.7 gm/dl (11.8-15.2) L 11/24/17 06:07 Hct 31.5 % (35.5-45.6) L 11/24/17 06:07 MCV 89 fl (84-94) 11/24/17 06:07 MCH 30 pg (28-32) 11/24/17 06:07 MCHC 34 % (32-34) 11/24/17 06:07 RDW 14.0 % (13.2-15.2) 11/24/17 06:07 Plt Count 475 K/mm3 (140-440) H 11/24/17 06:07 Lymph % (Auto) 9.0 % (13.4-35.0) L 11/24/17 06:07 [place] % (Auto) 4.5 % (0.0-7.3) 11/24/17 06:07 Eos % (Auto) 5.0 % (0.0-4.3) H 11/24/17 06:07 Baso % (Auto) 1.1 % (0.0-1.8) 11/24/17 06:07 Lymph # 1.0 K/mm3 (1.2-5.4) L 11/24/17 06:07 [place] # 0.5 K/mm3 (0.0-0.8) 11/24/17 06:07 Eos # 0.6 K/mm3 (0.0-0.4) H 11/24/17 06:07 Baso # 0.1 K/mm3 (0.0-0.1) 11/24/17 06:07 Add Manual Diff Complete 11/21/17 16:21 Total Counted 100 11/21/17 16:21 Seg Neutrophils % 80.4 % (40.0-70.0) H 11/24/17 06:07 Seg Neuts % (Manual) 75.0 % (40.0-70.0) H 11/21/17 16:21 Band Neutrophils % 0 % 11/21/17 16:21 Lymphocytes % (Manual) 16.0 % (13.4-35.0) 11/21/17 16:21 Reactive Lymphs % (Man) 0 % 11/21/17 16:21 Monocytes % (Manual) 8.0 % (0.0-7.3) H 11/21/17 16:21 Eosinophils % (Manual) 1.0 % (0.0-4.3) 11/21/17 16:21 Basophils % (Manual) 0 % (0.0-1.8) 11/21/17 16:21 Metamyelocytes % 0 % 11/21/17 16:21 Myelocytes % 0 % 11/21/17 16:21 Promyelocytes % 0 % 11/21/17 16:21 Blast Cells % 0 % 11/21/17 16:21 Nucleated RBC % Not Reportable 11/21/17 16:21 Seg Neutrophils # 9.2 K/mm3 (1.8-7.7) H 11/24/17 06:07 Seg Neutrophils # Man 9.4 K/mm3 (1.8-7.7) H 11/21/17 16:21 Band Neutrophils # 0.0 K/mm3 11/21/17 16:21 Lymphocytes # (Manual) 2.0 K/mm3 (1.2-5.4) 11/21/17 16:21 Abs React Lymphs (Man) 0.0 K/mm3 11/21/17 16:21 Monocytes # (Manual) 1.0 K/mm3 (0.0-0.8) H 11/21/17 16:21 Eosinophils # (Manual) 0.1 K/mm3 (0.0-0.4) 11/21/17 16:21 Basophils # (Manual) 0.0 K/mm3 (0.0-0.1) 11/21/17 16:21 Metamyelocytes # 0.0 K/mm3 11/21/17 16:21 Myelocytes # 0.0 K/mm3 11/21/17 16:21 Promyelocytes # 0.0 K/mm3 11/21/17 16:21 Blast Cells # 0.0 K/mm3 11/21/17 16:21 WBC Morphology Not Reportable 11/21/17 16:21 Hypersegmented Neuts Not Reportable 11/21/17 16:21 Hyposegmented Neuts Not Reportable 11/21/17 16:21 Hypogranular Neuts Not Reportable 11/21/17 16:21 Smudge Cells Not Reportable 11/21/17 16:21 Toxic Granulation Not Reportable 11/21/17 16:21 Toxic Vacuolation Not Reportable 11/21/17 16:21 Dohle Bodies Not Reportable 11/21/17 16:21 Pelger-Huet Anomaly Not Reportable 11/21/17 16:21 Luba Rods Not Reportable 11/21/17 16:21 Platelet Estimate Appears normal 11/21/17 16:21 Clumped Platelets Not Reportable 11/21/17 16:21 Plt Clumps, EDTA Not Reportable 11/21/17 16:21 Large Platelets Not Reportable 11/21/17 16:21 Giant Platelets Not Reportable 11/21/17 16:21 Platelet Satelliting Not Reportable 11/21/17 16:21 Plt Morphology Comment Not Reportable 11/21/17 16:21 RBC Morphology Not Reportable 11/21/17 16:21 Dimorphic RBCs Not Reportable 11/21/17 16:21 Polychromasia Not Reportable 11/21/17 16:21 Hypochromasia Not Reportable 11/21/17 16:21 Poikilocytosis 1+ 11/21/17 16:21 Anisocytosis 1+ 11/21/17 16:21 Microcytosis Not Reportable 11/21/17 16:21 Macrocytosis Not Reportable 11/21/17 16:21 Spherocytes Not Reportable 11/21/17 16:21 Pappenheimer Bodies Not Reportable 11/21/17 16:21 Sickle Cells Not Reportable 11/21/17 16:21 Target Cells Not Reportable 11/21/17 16:21 Tear Drop Cells Not Reportable 11/21/17 16:21 Ovalocytes Not Reportable 11/21/17 16:21 Helmet Cells Not Reportable 11/21/17 16:21 [place] Bodies Not Reportable 11/21/17 16:21 [place] Rings Not Reportable 11/21/17 16:21 [employer] Cells Not Reportable 11/21/17 16:21 Bite Cells Not Reportable 11/21/17 16:21 Crenated Cell Not Reportable 11/21/17 16:21 Elliptocytes Not Reportable 11/21/17 16:21 Acanthocytes (Spur) Not Reportable 11/21/17 16:21 Rouleaux Not Reportable 11/21/17 16:21 Hemoglobin C Crystals Not Reportable 11/21/17 16:21 Schistocytes Not Reportable 11/21/17 16:21 Malaria parasites Not Reportable 11/21/17 16:21 ESR 53 mm/Hr (0-20) 11/21/17 16:21 Leobardo Bodies Not Reportable 11/21/17 16:21 Hem Pathologist Commnt No 11/21/17 16:21 Sodium 142 mmol/L (137-145) 11/26/17 04:47 Potassium 3.8 mmol/L (3.6-5.0) 11/26/17 04:47 Chloride 105.0 mmol/L (98-107) 11/26/17 04:47 Carbon Dioxide 23 mmol/L (22-30) 11/26/17 04:47 Anion Gap 18 mmol/L 11/26/17 04:47 BUN 23 mg/dL (9-20) H 11/26/17 04:47 Creatinine 1.6 mg/dL (0.8-1.5) H 11/26/17 04:47 Estimated GFR 46 ml/min 11/26/17 04:47 BUN/Creatinine Ratio 14 % 11/26/17 04:47 Glucose 134 mg/dL (75-100) H 11/26/17 04:47 POC Glucose 178 (70-105) H 11/26/17 16:03 Hemoglobin A1c 7.0 % (4-6) H 11/23/17 14:47 Lactic Acid 0.80 mmol/L (0.7-2.0) 11/21/17 17:33 Calcium 7.1 mg/dL (8.4-10.2) L 11/26/17 04:47 C-Reactive Protein 1.00 mg/dL (0.00-1.30) 11/21/17 16:21 Serum Total Protein 5.2 g/dL (6.1-8.1) L 11/23/17 11:14 Albumin 2.1 g/dL (3.8-4.8) L 11/23/17 11:14 Xccej-9-[id number] 0.4 g/dL (0.2-0.3) H 11/23/17 11:14 Dhfxj-0-Fmvvtjfnu 0.9 g/dL (0.5-0.9) 11/23/17 11:14 Beta Globulins 0.6 g/dL (0.2-0.5) H 11/23/17 11:14 Gamma Globulins 0.9 g/dL (0.8-1.7) 11/23/17 11:14 Abnorm Protein Band 1 see below 11/23/17 11:14 PEP Interpretation see below H 11/23/17 11:14 Urine Creatinine 75.0 mg/dL (0.1-20.0) H 11/23/17 22:19 Urine Sodium 64 mmol/L 11/23/17 22:19 Urine Total Protein 813 mg/dL (5-11.8) H 11/23/17 22:19 Hepatitis A IgM Ab Non-reactive (NonReactive) 11/24/17 13:42 Hep Bs Antigen Non-reactive (Negative) 11/24/17 13:42 Hep B Core IgM Ab Non-reactive (NonReactive) 11/24/17 13:42 Hepatitis C Antibody Non-reactive (NonReactive) 11/24/17 13:42
[2017-11-27] MEDS: NACL 0.9% 1000 ML 1,000 ML IV SCH ×2 (02:29→16:13)
[2017-11-27] MEDS: UNASYN/NS 3 GM/100 ML 3 GM/100 ML BAG IV SCH ×2 (05:20→12:09)
[2017-11-27 05:38] LABS: Calcium 7.2 mg/dL (8.4-10.2)
[2017-11-27] MEDS: NOVOLOG SUB-Q SCH (09:08)
--- NOTE | 2017-11-27 09:32 | Progress Note ---
Subjective Interval history: Patient was seen today for follow-up on multiple renal related issues Events of this hospitalization noted Patient denies having any chest pain pressure or shortness of breath Vitals labs intake output medications were reviewed Social history: Reviewed Allergies: Reviewed Family history: Reviewed Physical examination HEENT: Oral mucosa moist no pallor or icterus Neck: Supple no JVD Chest: Clear to auscultation anteriorly CVS: Regular rate and rhythm S1 and S2 heard Abdomen: Soft nontender no suprapubic masses no organomegaly appreciable Extremity: Dry skin less than 1+ peripheral edema Musculoskeletal: No joint effusion noted in knees and ankle Neurological: Alert awake Dermatology: No petechial rashes Psychiatry: No evidence of any agitation and aggression noted Assessment and plan chronic renal failure Baseline creatinine was around 1.5 October of 2017: Patient's renal function needs to be monitored closely he did appear to be prerenal and was on blanka inhibitors upon admission High-grade proteinuria 10.8 g noted by protein creatinine ratio moderate protein restriction better blood pressure control, diabetic control and close follow-up in the office as needed he is high risk for progression to end-stage renal disease in the absence of proper follow-up on renal care peripheral arterial disease with left foot infection less likely to have immune complex glomerulonephritis will follow-up treated the infection for now Hypokalemia currently appears to be stable Diabetes mellitus type 2 hemoglobin A1c 7.0 Hypertension: Patient was taking BLANKA inhibitor in the outpatient setting would like to continue as long as renal function is stable Ultrasonogram findings essentially unremarkable which is not unusual in diabetic patients Patient was adequately counseled and educated regarding multiple renal related issues Pertinent lab findings were discussed with patient, patient does exhibit good understanding of renal issues We'll continue to follow and make recommendation from renal standpoint Objective - Vital Signs Vital signs: Vital Signs - 12hr 11/26/17 11/27/17 23:47 08:01 Temperature 98.7 F 98.1 F Pulse Rate 72 73 Respiratory 20 20 Rate Blood Pressure 145/80 168/84 O2 Sat by Pulse 93 91 Oximetry - Lab 11/24/17 06:07 11/27/17 04:26 Most recent lab results Calcium 7.2 mg/dL (8.4-10.2) L 11/27/17 04:26 Urine Creatinine 75.0 mg/dL (0.1-20.0) H 11/23/17 22:19 Urine Sodium 64 mmol/L 11/23/17 22:19 Urine Total Protein 813 mg/dL (5-11.8) H 11/23/17 22:19
--- NOTE | 2017-11-27 10:32 | Progress Note ---
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 Aviles following, will schedule him for elective left 4th and 5th toe amputation Thank you Dr. Sabillon for your consultation, will follow up with you. Gino Heard NP for Dr. Henny Yung MD Infectious Diseases Specialist [facility] ([facility]) M [phone] O [phone] Subjective Date of service: 11/27/17 Interval history: I haven't eaten since midnight, maybe i will have my foot surgery today, no fever Microbiology: Blood cultures: 11/21 ngtd Repiratory cultures: Urine cultures Current Antimicrobials: unasyn 11/22 doxycycline 11/23 Previous Antimicrobials: vancomycin 11/22 Objective - Exam Narrative Exam: Eyes: anicteric sclerae, moist conjunctivae; no lid-lag; PERRLA HENT: Atraumatic; oropharynx clear, no thrush Neck: Trachea midline; supple, no thyromegaly or lymphadenopathy Lungs: CTAB CV: RRR, no murmurs Abdomen: Soft, non-tender; no masses or hepatosplenomegaly Extremities: gangrene of his left 4th and 5th toes Skin: warm and dry with gangrene to his left 4th and 5th toes Psych: calm and cooperative Neuro: alert and oriented Lines: No CVL / PICC - Constitutional Vitals: Vital Signs Temp Pulse Resp BP Pulse Ox 98.1 F 73 20 168/84 91 11/27/17 08:01 11/27/17 08:01 11/27/17 08:01 11/27/17 08:01 11/27/17 08:01 Temperature -Last 24 Hours Temperature 98.1 F Temperature 98.7 F Temperature 98.6 F - Labs CBC & Chem 7: 11/24/17 06:07 11/27/17 04:26 Labs: Abnormal lab results 11/26/17 11/26/17 11/26/17 Range/Units 11:37 16:03 21:28 Chloride (98-107) mmol/L BUN (9-20) mg/dL Creatinine (0.8-1.5) mg/dL POC Glucose 208 H 178 H 202 H (70-105) Calcium (8.4-10.2) mg/dL 11/27/17 Range/Units 04:26 Chloride 109.1 H (98-107) mmol/L BUN 23 H (9-20) mg/dL Creatinine 1.6 H (0.8-1.5) mg/dL POC Glucose (70-105) Calcium 7.2 L (8.4-10.2) mg/dL <HENNY CALDERON - Last Filed: 11/27/17 20:56> Objective - Constitutional Vitals: Vital Signs Temp Pulse Resp BP Pulse Ox 97.3 F L 69 16 163/81 96 11/27/17 20:37 11/27/17 20:37 11/27/17 20:37 11/27/17 20:37 11/27/17 20:37 Temperature -Last 24 Hours Temperature 97.3 F Temperature 97.7 F Temperature 98.5 F Temperature 98.1 F Temperature 98.7 F - Labs CBC & Chem 7: 11/24/17 06:07 11/27/17 04:26 Labs: Abnormal lab results 11/26/17 11/27/17 11/27/17 Range/Units 21:28 04:26 15:02 Chloride 109.1 H (98-107) mmol/L BUN 23 H (9-20) mg/dL Creatinine 1.6 H (0.8-1.5) mg/dL POC Glucose 202 H 106 H (70-105) Calcium 7.2 L (8.4-10.2) mg/dL 11/27/17 Range/Units 20:49 Chloride (98-107) mmol/L BUN (9-20) mg/dL Creatinine (0.8-1.5) mg/dL POC Glucose 137 H (70-105) Calcium (8.4-10.2) mg/dL
--- NOTE | 2017-11-27 15:21 | Anesthesia Consultation ---
Anesthesia Consult and Med Hx Date of service: 11/27/17 - Airway Anesthetic Teeth Evaluation: Edentulous ROM Head & Neck: Adequate Mental/Hyoid Distance: Adequate Mallampati Class: Class II Intubation Access Assessment: Probably Good - Pulmonary Exam CTA: Yes - Cardiac Exam Cardiac Exam: RRR - Pre-Operative Health Status ASA Pre-Surgery Classification: ASA3 Proposed Anesthetic Plan: General - Pulmonary Hx Smoking: Yes (from age of 14 until 10/07/17) Hx Asthma: No COPD: No Hx Pneumonia: No - Cardiovascular System Hx Hypertension: Yes Hx Peripheral Vascular Disease: Yes (DVT found in October - on Plavix) - Central Nervous System Hx Psychiatric Problems: No - Gastrointestinal Hx Gastroesophageal Reflux Disease: No - Endocrine Hx End Stage Renal Disease: No - Other Systems Hx Cancer: No
[2017-11-27] MEDS ORDERED: ZOFRAN IV PRN (15:27)
[2017-11-27] MEDS ORDERED: DILAUDID IV PRN (15:27)
[2017-11-27] MEDS ORDERED: VERSED IV NR (16:00)
[2017-11-27] MEDS ORDERED: PEPCID IV NR (16:00)
[2017-11-27] MEDS: COREG PO SCH ×2 (16:12→22:40)
[2017-11-27] MEDS ORDERED: XYLOCAINE CARDIAC IV ONE (16:34)
[2017-11-27] MEDS ORDERED: VERSED ONE (16:34)
[2017-11-27] MEDS ORDERED: DECADRON ONE (16:34)
[2017-11-27] MEDS ORDERED: ZOFRAN ONE (16:34)
[2017-11-27] MEDS ORDERED: SUBLIMAZE ONE (16:35)
[2017-11-27] MEDS ORDERED: DIPRIVAN 10 MG/ML IV ONE (16:35)
[2017-11-27] MEDS ORDERED: XYLOCAINE 1% 20 mL ONE (16:39)
[2017-11-27] MEDS ORDERED: MARCAINE 0.25% INFILTRATI ONE (16:39)
--- NOTE | 2017-11-27 17:02 | Progress Note ---
Assessment and Plan Assessment and plan: Wet Gangrene of 4th and 5th toes of left foot IV abx case dw vascular surgery He has good distal perfusion since recent angioplasty/reperfusion last month -likely reperfusion injury, but need 4th and 5th toes amputated, will be done on today by Dr nichols Cellulitis of left leg continue abx, per ID SHARLENE (acute kidney injury)/ vasomotor nephropathy avoid nephrotoxins, received IVF and is drinking enough water T2DM (type 2 diabetes mellitus) continue insulins, on 70/30 HTN (hypertension) Cont antihypertensives Hypertensive urgency now improved, continue BP meds DVT prophylaxis Lovenox History Interval history: No new issues overnight Hospitalist Physical - Constitutional Vitals: Temp Pulse Resp BP Pulse Ox 98.5 F 78 20 189/93 95 11/27/17 14:42 11/27/17 16:12 11/27/17 14:42 11/27/17 16:12 11/27/17 14:42 General appearance: Present: no acute distress, well-nourished - EENT Eyes: Present: PERRL, EOM intact ENT: hearing intact, clear oral mucosa - Neck Neck: Present: supple, normal ROM - Respiratory Respiratory effort: normal Respiratory: bilateral: CTA - Cardiovascular Rhythm: regular Heart Sounds: Present: S1 & S2 - Extremities Extremity abnormal: edema ((LLE, with gangrenous 4th and 5th toes, appears to be wet gangrene)) Peripheral Pulses: within normal limits - Abdominal General gastrointestinal: soft, non-tender, non-distended - Integumentary Integumentary: Present: clear, warm, dry - Psychiatric Psychiatric: appropriate mood/affect, intact judgment & insight, cooperative - Neurologic Neurologic: CNII-XII intact, no focal deficits, moves all extremities - Allied Health Allied health notes reviewed: nursing Results - Labs CBC & Chem 7: 11/24/17 06:07 11/27/17 04:26 Labs: Laboratory Last Values WBC 11.5 K/mm3 (4.5-11.0) H 11/24/17 06:07 RBC 3.54 M/mm3 (3.65-5.03) L 11/24/17 06:07 Hgb 10.7 gm/dl (11.8-15.2) L 11/24/17 06:07 Hct 31.5 % (35.5-45.6) L 11/24/17 06:07 MCV 89 fl (84-94) 11/24/17 06:07 MCH 30 pg (28-32) 11/24/17 06:07 MCHC 34 % (32-34) 11/24/17 06:07 RDW 14.0 % (13.2-15.2) 11/24/17 06:07 Plt Count 475 K/mm3 (140-440) H 11/24/17 06:07 Lymph % (Auto) 9.0 % (13.4-35.0) L 11/24/17 06:07 [place] % (Auto) 4.5 % (0.0-7.3) 11/24/17 06:07 Eos % (Auto) 5.0 % (0.0-4.3) H 11/24/17 06:07 Baso % (Auto) 1.1 % (0.0-1.8) 11/24/17 06:07 Lymph # 1.0 K/mm3 (1.2-5.4) L 11/24/17 06:07 [place] # 0.5 K/mm3 (0.0-0.8) 11/24/17 06:07 Eos # 0.6 K/mm3 (0.0-0.4) H 11/24/17 06:07 Baso # 0.1 K/mm3 (0.0-0.1) 11/24/17 06:07 Add Manual Diff Complete 11/21/17 16:21 Total Counted 100 11/21/17 16:21 Seg Neutrophils % 80.4 % (40.0-70.0) H 11/24/17 06:07 Seg Neuts % (Manual) 75.0 % (40.0-70.0) H 11/21/17 16:21 Band Neutrophils % 0 % 11/21/17 16:21 Lymphocytes % (Manual) 16.0 % (13.4-35.0) 11/21/17 16:21 Reactive Lymphs % (Man) 0 % 11/21/17 16:21 Monocytes % (Manual) 8.0 % (0.0-7.3) H 11/21/17 16:21 Eosinophils % (Manual) 1.0 % (0.0-4.3) 11/21/17 16:21 Basophils % (Manual) 0 % (0.0-1.8) 11/21/17 16:21 Metamyelocytes % 0 % 11/21/17 16:21 Myelocytes % 0 % 11/21/17 16:21 Promyelocytes % 0 % 11/21/17 16:21 Blast Cells % 0 % 11/21/17 16:21 Nucleated RBC % Not Reportable 11/21/17 16:21 Seg Neutrophils # 9.2 K/mm3 (1.8-7.7) H 11/24/17 06:07 Seg Neutrophils # Man 9.4 K/mm3 (1.8-7.7) H 11/21/17 16:21 Band Neutrophils # 0.0 K/mm3 11/21/17 16:21 Lymphocytes # (Manual) 2.0 K/mm3 (1.2-5.4) 11/21/17 16:21 Abs React Lymphs (Man) 0.0 K/mm3 11/21/17 16:21 Monocytes # (Manual) 1.0 K/mm3 (0.0-0.8) H 11/21/17 16:21 Eosinophils # (Manual) 0.1 K/mm3 (0.0-0.4) 11/21/17 16:21 Basophils # (Manual) 0.0 K/mm3 (0.0-0.1) 11/21/17 16:21 Metamyelocytes # 0.0 K/mm3 11/21/17 16:21 Myelocytes # 0.0 K/mm3 11/21/17 16:21 Promyelocytes # 0.0 K/mm3 11/21/17 16:21 Blast Cells # 0.0 K/mm3 11/21/17 16:21 WBC Morphology Not Reportable 11/21/17 16:21 Hypersegmented Neuts Not Reportable 11/21/17 16:21 Hyposegmented Neuts Not Reportable 11/21/17 16:21 Hypogranular Neuts Not Reportable 11/21/17 16:21 Smudge Cells Not Reportable 11/21/17 16:21 Toxic Granulation Not Reportable 11/21/17 16:21 Toxic Vacuolation Not Reportable 11/21/17 16:21 Dohle Bodies Not Reportable 11/21/17 16:21 Pelger-Huet Anomaly Not Reportable 11/21/17 16:21 Luba Rods Not Reportable 11/21/17 16:21 Platelet Estimate Appears normal 11/21/17 16:21 Clumped Platelets Not Reportable 11/21/17 16:21 Plt Clumps, EDTA Not Reportable 11/21/17 16:21 Large Platelets Not Reportable 11/21/17 16:21 Giant Platelets Not Reportable 11/21/17 16:21 Platelet Satelliting Not Reportable 11/21/17 16:21 Plt Morphology Comment Not Reportable 11/21/17 16:21 RBC Morphology Not Reportable 11/21/17 16:21 Dimorphic RBCs Not Reportable 11/21/17 16:21 Polychromasia Not Reportable 11/21/17 16:21 Hypochromasia Not Reportable 11/21/17 16:21 Poikilocytosis 1+ 11/21/17 16:21 Anisocytosis 1+ 11/21/17 16:21 Microcytosis Not Reportable 11/21/17 16:21 Macrocytosis Not Reportable 11/21/17 16:21 Spherocytes Not Reportable 11/21/17 16:21 Pappenheimer Bodies Not Reportable 11/21/17 16:21 Sickle Cells Not Reportable 11/21/17 16:21 Target Cells Not Reportable 11/21/17 16:21 Tear Drop Cells Not Reportable 11/21/17 16:21 Ovalocytes Not Reportable 11/21/17 16:21 Helmet Cells Not Reportable 11/21/17 16:21 [place] Bodies Not Reportable 11/21/17 16:21 [place] Rings Not Reportable 11/21/17 16:21 Ivet Cells Not Reportable 11/21/17 16:21 Bite Cells Not Reportable 11/21/17 16:21 Crenated Cell Not Reportable 11/21/17 16:21 Elliptocytes Not Reportable 11/21/17 16:21 Acanthocytes (Spur) Not Reportable 11/21/17 16:21 Rouleaux Not Reportable 11/21/17 16:21 Hemoglobin C Crystals Not Reportable 11/21/17 16:21 Schistocytes Not Reportable 11/21/17 16:21 Malaria parasites Not Reportable 11/21/17 16:21 ESR 53 mm/Hr (0-20) 11/21/17 16:21 Leobardo Bodies Not Reportable 11/21/17 16:21 Hem Pathologist Commnt No 11/21/17 16:21 Sodium 144 mmol/L (137-145) 11/27/17 04:26 Potassium 3.7 mmol/L (3.6-5.0) 11/27/17 04:26 Chloride 109.1 mmol/L (98-107) H 11/27/17 04:26 Carbon Dioxide 25 mmol/L (22-30) 11/27/17 04:26 Anion Gap 14 mmol/L 11/27/17 04:26 BUN 23 mg/dL (9-20) H 11/27/17 04:26 Creatinine 1.6 mg/dL (0.8-1.5) H 11/27/17 04:26 Estimated GFR 46 ml/min 11/27/17 04:26 BUN/Creatinine Ratio 14 % 11/27/17 04:26 Glucose 88 mg/dL (75-100) 11/27/17 04:26 POC Glucose 106 (70-105) H 11/27/17 15:02 Hemoglobin A1c 7.0 % (4-6) H 11/23/17 14:47 Lactic Acid 0.80 mmol/L (0.7-2.0) 11/21/17 17:33 Calcium 7.2 mg/dL (8.4-10.2) L 11/27/17 04:26 C-Reactive Protein 1.00 mg/dL (0.00-1.30) 11/21/17 16:21 Serum Total Protein 5.2 g/dL (6.1-8.1) L 11/23/17 11:14 Albumin 2.1 g/dL (3.8-4.8) L 11/23/17 11:14 Izmvl-5-Xfzhgqesv 0.4 g/dL (0.2-0.3) H 11/23/17 11:14 Thytu-9-Cigylbweh 0.9 g/dL (0.5-0.9) 11/23/17 11:14 Beta Globulins 0.6 g/dL (0.2-0.5) H 11/23/17 11:14 Gamma Globulins 0.9 g/dL (0.8-1.7) 11/23/17 11:14 Abnorm Protein Band 1 see below 11/23/17 11:14 PEP Interpretation see below H 11/23/17 11:14 Urine Creatinine 75.0 mg/dL (0.1-20.0) H 11/23/17 22:19 Urine Sodium 64 mmol/L 11/23/17 22:19 Urine Total Protein 813 mg/dL (5-11.8) H 11/23/17 22:19 Double Strand DNA Ab <1 IU/mL (<=4) 11/24/17 13:42 Hepatitis A IgM Ab Non-reactive (NonReactive) 11/24/17 13:42 Hep Bs Antigen Non-reactive (Negative) 11/24/17 13:42 Hep B Core IgM Ab Non-reactive (NonReactive) 11/24/17 13:42 Hepatitis C Antibody Non-reactive (NonReactive) 11/24/17 13:42
[2017-11-27] MEDS ORDERED: NACL 0.9% IR ONE (17:05)
--- NOTE | 2017-11-27 18:00 | Post Operative Note ---
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
--- NOTE | 2017-11-27 19:33 | Post Anesthesia Evaluation ---
- Post Anesthesia Evaluation Patient Participated: Yes Airway Patent: Yes Stable Respiratory Function: Yes Nausea/Vomiting: No Temp > 96.8F: Yes Pain Manageable: Yes Adequeate Hydration: Yes Anesthesia Complications: No
[2017-11-27] MEDS: ZESTRIL PO SCH (22:39)
[2017-11-27] MEDS: VIBRAMYCIN PO SCH (22:40)
[2017-11-28 07:29] LABS: Calcium 6.9 mg/dL (8.4-10.2)
[2017-11-28] MEDS: PLAVIX PO SCH ×2 (09:51→10:52)
[2017-11-28] MEDS: NORVASC PO SCH ×2 (09:52→10:52)
[2017-11-28] MEDS: VIBRAMYCIN PO SCH ×2 (09:52→10:53)
[2017-11-28] MEDS: NOVOLOG SUB-Q SCH ×5 (09:52→18:27)
[2017-11-28] MEDS: ZESTRIL PO SCH ×2 (09:54→10:54)
[2017-11-28] MEDS: UNASYN/NS 3 GM/100 ML 3 GM/100 ML BAG IV SCH ×5 (09:59→18:23)
--- NOTE | 2017-11-28 10:16 | Progress Note ---
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 If negative no abx needed -will follow up from a distance. Thank you Dr. Sabillon for your consultation, will follow up with you. Gino Heard NP for Dr. Henny Yung MD Infectious Diseases Specialist [facility] ([facility]) M [phone] O [phone] Subjective Date of service: 11/28/17 Interval history: I had my toes cut off yesterday and I am ready to go home, no fever Microbiology: Blood cultures: 11/21 ngtd Repiratory cultures: Urine cultures Current Antimicrobials: unasyn 11/22 doxycycline 11/23 Previous Antimicrobials: vancomycin 11/22 Objective - Exam Narrative Exam: Eyes: anicteric sclerae, moist conjunctivae; no lid-lag; PERRLA HENT: Atraumatic; oropharynx clear, no thrush Neck: Trachea midline; supple, no thyromegaly or lymphadenopathy Lungs: CTAB CV: RRR, no murmurs Abdomen: Soft, non-tender; no masses or hepatosplenomegaly Extremities: surgical dressing to left foot with some drainage Skin: warm, dressing to left foot with some drainage Psych: calm and cooperative Neuro: alert and oriented Lines: No CVL / PICC - Constitutional Vitals: Vital Signs Temp Pulse Resp BP Pulse Ox 97.3 F L 70 16 163/81 96 11/27/17 20:37 11/27/17 22:40 11/27/17 20:37 11/27/17 22:40 11/27/17 20:37 Temperature -Last 24 Hours Temperature 97.3 F Temperature 97.7 F Temperature 98.5 F - Labs CBC & Chem 7: 11/24/17 06:07 11/28/17 05:00 Labs: Abnormal lab results 11/27/17 11/27/17 11/27/17 Range/Units 15:02 18:20 20:49 Carbon Dioxide (22-30) mmol/L BUN (9-20) mg/dL Glucose (75-100) mg/dL POC Glucose 106 H 113 H 137 H (70-105) Calcium (8.4-10.2) mg/dL 11/28/17 11/28/17 Range/Units 05:00 05:25 Carbon Dioxide 18 L D (22-30) mmol/L BUN 24 H (9-20) mg/dL Glucose 247 H (75-100) mg/dL POC Glucose 256 H (70-105) Calcium 6.9 L (8.4-10.2) mg/dL
[2017-11-28] MEDS: COREG PO SCH ×2 (10:51→10:57)
--- NOTE | 2017-11-28 10:57 | Progress Note ---
Assessment and Plan Assessment and plan: Wet Gangrene of 4th and 5th toes of left foot IV abx case dw vascular surgery He has good distal perfusion since recent angioplasty/reperfusion last month -likely reperfusion injury, s/p 4th and 5th toes amputation by Dr nichols Cellulitis of left leg continue abx, per ID SHARLENE (acute kidney injury)/ vasomotor nephropathy avoid nephrotoxins, received IVF and is drinking enough water T2DM (type 2 diabetes mellitus) continue insulins, on 70/30, HTN (hypertension) Cont antihypertensives Hypertensive urgency now improved, continue BP meds DVT prophylaxis Lovenox History Interval history: No new issues overnight Hospitalist Physical - Constitutional Vitals: Temp Pulse Resp BP Pulse Ox 97.7 F 76 18 150/80 90 11/28/17 07:31 11/28/17 07:31 11/28/17 07:31 11/28/17 07:31 11/28/17 07:31 General appearance: Present: no acute distress, well-nourished - EENT Eyes: Present: PERRL, EOM intact ENT: hearing intact, clear oral mucosa - Neck Neck: Present: supple, normal ROM - Respiratory Respiratory effort: normal Respiratory: bilateral: CTA - Cardiovascular Rhythm: regular Heart Sounds: Present: S1 & S2 - Extremities Extremities: no ischemia, No edema Extremity abnormal: other (L 4th and 5th digit amputated with clean wound) - Abdominal General gastrointestinal: non-tender, non-distended - Integumentary Integumentary: Present: clear, warm, dry Results - Labs CBC & Chem 7: 11/24/17 06:07 11/28/17 05:00 Labs: Laboratory Last Values WBC 11.5 K/mm3 (4.5-11.0) H 11/24/17 06:07 RBC 3.54 M/mm3 (3.65-5.03) L 11/24/17 06:07 Hgb 10.7 gm/dl (11.8-15.2) L 11/24/17 06:07 Hct 31.5 % (35.5-45.6) L 11/24/17 06:07 MCV 89 fl (84-94) 11/24/17 06:07 MCH 30 pg (28-32) 11/24/17 06:07 MCHC 34 % (32-34) 11/24/17 06:07 RDW 14.0 % (13.2-15.2) 11/24/17 06:07 Plt Count 475 K/mm3 (140-440) H 11/24/17 06:07 Lymph % (Auto) 9.0 % (13.4-35.0) L 11/24/17 06:07 [place] % (Auto) 4.5 % (0.0-7.3) 11/24/17 06:07 Eos % (Auto) 5.0 % (0.0-4.3) H 11/24/17 06:07 Baso % (Auto) 1.1 % (0.0-1.8) 11/24/17 06:07 Lymph # 1.0 K/mm3 (1.2-5.4) L 11/24/17 06:07 [place] # 0.5 K/mm3 (0.0-0.8) 11/24/17 06:07 Eos # 0.6 K/mm3 (0.0-0.4) H 11/24/17 06:07 Baso # 0.1 K/mm3 (0.0-0.1) 11/24/17 06:07 Add Manual Diff Complete 11/21/17 16:21 Total Counted 100 11/21/17 16:21 Seg Neutrophils % 80.4 % (40.0-70.0) H 11/24/17 06:07 Seg Neuts % (Manual) 75.0 % (40.0-70.0) H 11/21/17 16:21 Band Neutrophils % 0 % 11/21/17 16:21 Lymphocytes % (Manual) 16.0 % (13.4-35.0) 11/21/17 16:21 Reactive Lymphs % (Man) 0 % 11/21/17 16:21 Monocytes % (Manual) 8.0 % (0.0-7.3) H 11/21/17 16:21 Eosinophils % (Manual) 1.0 % (0.0-4.3) 11/21/17 16:21 Basophils % (Manual) 0 % (0.0-1.8) 11/21/17 16:21 Metamyelocytes % 0 % 11/21/17 16:21 Myelocytes % 0 % 11/21/17 16:21 Promyelocytes % 0 % 11/21/17 16:21 Blast Cells % 0 % 11/21/17 16:21 Nucleated RBC % Not Reportable 11/21/17 16:21 Seg Neutrophils # 9.2 K/mm3 (1.8-7.7) H 11/24/17 06:07 Seg Neutrophils # Man 9.4 K/mm3 (1.8-7.7) H 11/21/17 16:21 Band Neutrophils # 0.0 K/mm3 11/21/17 16:21 Lymphocytes # (Manual) 2.0 K/mm3 (1.2-5.4) 11/21/17 16:21 Abs React Lymphs (Man) 0.0 K/mm3 11/21/17 16:21 Monocytes # (Manual) 1.0 K/mm3 (0.0-0.8) H 11/21/17 16:21 Eosinophils # (Manual) 0.1 K/mm3 (0.0-0.4) 11/21/17 16:21 Basophils # (Manual) 0.0 K/mm3 (0.0-0.1) 11/21/17 16:21 Metamyelocytes # 0.0 K/mm3 11/21/17 16:21 Myelocytes # 0.0 K/mm3 11/21/17 16:21 Promyelocytes # 0.0 K/mm3 11/21/17 16:21 Blast Cells # 0.0 K/mm3 11/21/17 16:21 WBC Morphology Not Reportable 11/21/17 16:21 Hypersegmented Neuts Not Reportable 11/21/17 16:21 Hyposegmented Neuts Not Reportable 11/21/17 16:21 Hypogranular Neuts Not Reportable 11/21/17 16:21 Smudge Cells Not Reportable 11/21/17 16:21 Toxic Granulation Not Reportable 11/21/17 16:21 Toxic Vacuolation Not Reportable 11/21/17 16:21 Dohle Bodies Not Reportable 11/21/17 16:21 Pelger-Huet Anomaly Not Reportable 11/21/17 16:21 Luba Rods Not Reportable 11/21/17 16:21 Platelet Estimate Appears normal 11/21/17 16:21 Clumped Platelets Not Reportable 11/21/17 16:21 Plt Clumps, EDTA Not Reportable 11/21/17 16:21 Large Platelets Not Reportable 11/21/17 16:21 Giant Platelets Not Reportable 11/21/17 16:21 Platelet Satelliting Not Reportable 11/21/17 16:21 Plt Morphology Comment Not Reportable 11/21/17 16:21 RBC Morphology Not Reportable 11/21/17 16:21 Dimorphic RBCs Not Reportable 11/21/17 16:21 Polychromasia Not Reportable 11/21/17 16:21 Hypochromasia Not Reportable 11/21/17 16:21 Poikilocytosis 1+ 11/21/17 16:21 Anisocytosis 1+ 11/21/17 16:21 Microcytosis Not Reportable 11/21/17 16:21 Macrocytosis Not Reportable 11/21/17 16:21 Spherocytes Not Reportable 11/21/17 16:21 Pappenheimer Bodies Not Reportable 11/21/17 16:21 Sickle Cells Not Reportable 11/21/17 16:21 Target Cells Not Reportable 11/21/17 16:21 Tear Drop Cells Not Reportable 11/21/17 16:21 Ovalocytes Not Reportable 11/21/17 16:21 Helmet Cells Not Reportable 11/21/17 16:21 [place] Bodies Not Reportable 11/21/17 16:21 [place] Rings Not Reportable 11/21/17 16:21 Ivet Cells Not Reportable 11/21/17 16:21 Bite Cells Not Reportable 11/21/17 16:21 Crenated Cell Not Reportable 11/21/17 16:21 Elliptocytes Not Reportable 11/21/17 16:21 Acanthocytes (Spur) Not Reportable 11/21/17 16:21 Rouleaux Not Reportable 11/21/17 16:21 Hemoglobin C Crystals Not Reportable 11/21/17 16:21 Schistocytes Not Reportable 11/21/17 16:21 Malaria parasites Not Reportable 11/21/17 16:21 ESR 53 mm/Hr (0-20) 11/21/17 16:21 Leobardo Bodies Not Reportable 11/21/17 16:21 Hem Pathologist Commnt No 11/21/17 16:21 Sodium 140 mmol/L (137-145) 11/28/17 05:00 Potassium 4.4 mmol/L (3.6-5.0) 11/28/17 05:00 Chloride 106.3 mmol/L (98-107) 11/28/17 05:00 Carbon Dioxide 18 mmol/L (22-30) L D 11/28/17 05:00 Anion Gap 20 mmol/L 11/28/17 05:00 BUN 24 mg/dL (9-20) H 11/28/17 05:00 Creatinine 1.4 mg/dL (0.8-1.5) 11/28/17 05:00 Estimated GFR 54 ml/min 11/28/17 05:00 BUN/Creatinine Ratio 17 % 11/28/17 05:00 Glucose 247 mg/dL (75-100) H 11/28/17 05:00 POC Glucose 256 (70-105) H 11/28/17 05:25 Hemoglobin A1c 7.0 % (4-6) H 11/23/17 14:47 Lactic Acid 0.80 mmol/L (0.7-2.0) 11/21/17 17:33 Calcium 6.9 mg/dL (8.4-10.2) L 11/28/17 05:00 C-Reactive Protein 1.00 mg/dL (0.00-1.30) 11/21/17 16:21 Serum Total Protein 5.2 g/dL (6.1-8.1) L 11/23/17 11:14 Albumin 2.1 g/dL (3.8-4.8) L 11/23/17 11:14 Sduve-9-Ckrknruku 0.4 g/dL (0.2-0.3) H 11/23/17 11:14 Tkceb-3-Gzmqljyxl 0.9 g/dL (0.5-0.9) 11/23/17 11:14 Beta Globulins 0.6 g/dL (0.2-0.5) H 11/23/17 11:14 Gamma Globulins 0.9 g/dL (0.8-1.7) 11/23/17 11:14 Abnorm Protein Band 1 see below 11/23/17 11:14 PEP Interpretation see below H 11/23/17 11:14 Urine Creatinine 75.0 mg/dL (0.1-20.0) H 11/23/17 22:19 Urine Sodium 64 mmol/L 11/23/17 22:19 Urine Total Protein 813 mg/dL (5-11.8) H 11/23/17 22:19 Double Strand DNA Ab <1 IU/mL (<=4) 11/24/17 13:42 Hepatitis A IgM Ab Non-reactive (NonReactive) 11/24/17 13:42 Hep Bs Antigen Non-reactive (Negative) 11/24/17 13:42 Hep B Core IgM Ab Non-reactive (NonReactive) 11/24/17 13:42 Hepatitis C Antibody Non-reactive (NonReactive) 11/24/17 13:42
[2017-11-28] MEDS: TYLENOL PO PRN (11:37)
--- NOTE | 2017-11-28 12:28 | Progress Note ---
Subjective Interval history: Patient was seen today for follow-up on multiple renal related issues Events of this hospitalization noted Patient denies having any chest pain pressure or shortness of breath Vitals labs intake output medications were reviewed Social history: Reviewed Allergies: Reviewed Family history: Reviewed Physical examination HEENT: Oral mucosa moist no pallor or icterus Neck: Supple no JVD Chest: Clear to auscultation anteriorly CVS: Regular rate and rhythm S1 and S2 heard Abdomen: Soft nontender no suprapubic masses no organomegaly appreciable Extremity: Dry skin less than 1+ peripheral edema Musculoskeletal: No joint effusion noted in knees and ankle Neurological: Alert awake Dermatology: No petechial rashes Psychiatry: No evidence of any agitation and aggression noted Assessment and plan Renal insufficiency: Creatinine is currently stable at 1.4. Patient advised to make an appointment in the office upon discharge as he is at risk for further worsening of renal function. Due to multiple risk factors Metabolic acidosis: Patient will benefit from sodium bicarbonate 1300 mg twice a day Hypocalcemia likely has underlying vitamin D deficiency. Consider taking Tums 1000 units 3 times a day. Vitamin D 2000 units once a day Check ionized calcium/albumin, corrected calcium Double-stranded DNA negative. Hepatitis profile negative Protein creatinine ratio suggestive of 813/75, likely nephrotic range proteinuria due to diabetic nephropathy. Patient can be reinitiated on Raghu inhibitors adjusted dose. Also consider adding hydrochlorothiazide if needed in the outpatient setting e does not need any IV Ultrasonogram findings essentially unremarkable which is not unusual in diabetic patients Patient was adequately counseled and educated regarding multiple renal related issues Pertinent lab findings were discussed with patient, patient does exhibit good understanding of renal issues We'll continue to follow and make recommendation from renal standpoint Objective - Vital Signs Vital signs: Vital Signs - 12hr 11/28/17 11/28/17 11/28/17 07:31 10:51 10:52 Temperature 97.7 F Pulse Rate 76 76 76 Respiratory 18 Rate Blood Pressure 150/80 150/80 150/80 O2 Sat by Pulse 90 Oximetry 11/28/17 10:54 Temperature Pulse Rate 76 Respiratory Rate Blood Pressure 150/80 O2 Sat by Pulse Oximetry - Lab 11/24/17 06:07 11/28/17 05:00 Most recent lab results Calcium 6.9 mg/dL (8.4-10.2) L 11/28/17 05:00 Urine Creatinine 75.0 mg/dL (0.1-20.0) H 11/23/17 22:19 Urine Sodium 64 mmol/L 11/23/17 22:19 Urine Total Protein 813 mg/dL (5-11.8) H 11/23/17 22:19
--- NOTE | 2017-11-28 14:30 | Progress Note ---
Assessment and Plan - Patient Problems (1) Gangrene of toe of left foot Current Visit: Yes Status: Acute Plan to address problem: 1) Pt may be discharged from my perspective. 2) His mother is aware of the wound care required. 3) Strongly encouraged pt to get a PCP for his DM control. 4) Strict DM control is essential and was stressed with the pt. 5) May f/u in the [facility] or with his PCP. 6) Would continue oral antibiotics for another week. Subjective Date of service: 11/28/17 Patient Reports: Positive: no new complaints Objective Vital Signs - 12hr 11/28/17 11/28/17 11/28/17 07:31 10:51 10:52 Temperature 97.7 F Pulse Rate 76 76 76 Respiratory 18 Rate Blood Pressure 150/80 150/80 150/80 O2 Sat by Pulse 90 Oximetry 11/28/17 10:54 Temperature Pulse Rate 76 Respiratory Rate Blood Pressure 150/80 O2 Sat by Pulse Oximetry - Integumentary other (Left lateral foot wound is clean.) - Labs 11/24/17 06:07 11/28/17 05:00 Diabetes panel 11/28/17 Range/Units 05:00 Sodium 140 (137-145) mmol/L Potassium 4.4 (3.6-5.0) mmol/L Chloride 106.3 (98-107) mmol/L Carbon Dioxide 18 L D (22-30) mmol/L BUN 24 H (9-20) mg/dL Creatinine 1.4 (0.8-1.5) mg/dL Glucose 247 H (75-100) mg/dL Calcium 6.9 L (8.4-10.2) mg/dL Calcium panel 11/28/17 Range/Units 05:00 Calcium 6.9 L (8.4-10.2) mg/dL Pituitary panel 11/28/17 Range/Units 05:00 Sodium 140 (137-145) mmol/L Potassium 4.4 (3.6-5.0) mmol/L Chloride 106.3 (98-107) mmol/L Carbon Dioxide 18 L D (22-30) mmol/L BUN 24 H (9-20) mg/dL Creatinine 1.4 (0.8-1.5) mg/dL Glucose 247 H (75-100) mg/dL Calcium 6.9 L (8.4-10.2) mg/dL Adrenal panel 11/28/17 Range/Units 05:00 Sodium 140 (137-145) mmol/L Potassium 4.4 (3.6-5.0) mmol/L Chloride 106.3 (98-107) mmol/L Carbon Dioxide 18 L D (22-30) mmol/L BUN 24 H (9-20) mg/dL Creatinine 1.4 (0.8-1.5) mg/dL Glucose 247 H (75-100) mg/dL Calcium 6.9 L (8.4-10.2) mg/dL
[2017-11-28 17:48] LABS: Myeloperoxidase Antibody <1.0 AI (<1.0)
[2017-11-28 18:37] VITALS: BP 180/88
--- NOTE | 2017-11-29 14:51 | Discharge Summary ---
Providers - Providers Date of Admission: 11/21/17 19:29 Date of discharge: 11/28/17 Attending physician: JOSE MONIQUE MD 11/22/17 16:49 Consult to Physician [CONS] Routine Consulting Provider: RAMIRO BRADLEY Reason For Exam: gangrene LLE Place consult to:: DR. BRADLEY Notified:: Phone number called:: IN HOUSE Was contact made?: Yes If yes, spoke with:: DR. BRADLEY Time called:: 09:08 Comment:: MAURA NOTIFIED 11/23/17 08:00 Consult to Wound/ET Nurse [CONS] Routine Reason For Exam: gangrene 11/23/17 11:08 Consult to Physician [CONS] Routine Consulting Provider: FABIEN AVILES Reason For Exam: gangrene left 4th, 5th toe Place consult to:: DR. AVILES Notified:: OFFICE Phone number called:: [phone] Was contact made?: Yes If yes, spoke with:: BENITO Time called:: 11:50 Comment:: MAURA NOTIFIED 11/23/17 11:09 Consult to Physician [CONS] Routine Consulting Provider: MARY JANE WATSON Reason For Exam: left foot wet gangrene Place consult to:: RADHA Lopez Notified:: RADHA ROGERS Phone number called:: [phone] Was contact made?: No Time called:: 11:15 11/26/17 22:13 Consult to Physician [CONS] Routine Consulting Provider: FRANKO CALDERON Reason For Exam: wet gangrene, left foot Place consult to:: dr. 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 Subcutaneous air within the distal soft tissues of the 2nd toe consistent with gas gangrene Corticated bony deformity of the distal tibia consistent with remote fracture. Surgical plate and screws bridging distal fracture of the distal fibula Osteopenia Degenerative changes at the ankle joint Ankle brachial index RIGHT: Mild arterial disease. Although TBI is noncompressible, the first digital waveform is preserved. LEFT: No hemodynamically significant arterial disease. Although TBI is noncompressible, the first digital waveform is preserved. Renal ultrasound revealed No sonographic evidence of renal pathology Bilateral pleural effusions Slight pelvic ascites BLE ARTERIAL DUPLEX WITH EMILEE'S DONE.BLE VESSELS APPEAR PATENT.MONOPHASIC WAVEFORMS OBTAINED IN THE RT.DS LEGAL SUMMER INTERN,LT.POP A ,LT.LEGAL SUMMER INTERN/PAUL/DPA.RESTING EMILEE'S: RT- 0.93;LT-0.97 LUE VENOUS DUPLEX DONE.NO EVIDENCE OF DVT IN VESSELS VISUALIZED.SVT NOTED IN THE LT.CEPHALIC VEIN FROM DISTAL BICEPS UP TO THE LT.PX FOREARM. Hospital course: Patient is a 47-year-old male who went to see a new PCP on day of admission and the PCP referred him to the ER for work up for left foot gangrene. He says he was admitted here last month for a blood clot on left side and was given ABs in the hospital but was not D/C with ABs, as he says. He says he had the gangrene then but it was dry. Since then, he says, it has been draining with foul smell. He denies nausea, vomiting, or pain in left foot but admit to fever and chills. -The patient was found to have wet gangrene of the left fourth and fifth digits which required amputation. Amputation was completed by Dr. Aviles. -Patient was subsequently treated with antibiotics for cellulitis of the left foot. -Antihypertensives were optimized for control of patient's blood pressure. Patient was also treated with insulin therapy for his diabetes. -IV fluid therapy was initiated for acute kidney injury. -Patient was clinically stable for discharge back to his home. Discharge diagnoses Wet gangrene of fourth and fifth digits of left foot Cellulitis of the left leg Acute kidney injury/vasomotor nephropathy Type II diabetes mellitus Hypertension Hypertensive urgency DVT prophylaxis Disposition: TO HOME OR SELFCARE Time spent for discharge: 33 minutes Core Measure Documentation - Palliative Care Palliative Care/ Comfort Measures: Not Applicable - Core Measures Any of the following diagnoses?: none Exam - Constitutional Vitals: Temp Pulse Resp BP Pulse Ox 97.6 F 76 20 180/88 97 02/27/18 17:34 11/28/17 10:54 11/28/17 17:34 11/28/17 17:34 11/28/17 10:00 General appearance: Present: no acute distress, well-nourished - EENT Eyes: Present: PERRL ENT: hearing intact, clear oral mucosa - Neck Neck: Present: supple, normal ROM - Respiratory Respiratory effort: normal Respiratory: bilateral: CTA - Cardiovascular Heart Sounds: Present: S1 & S2. Absent: rub, click - Extremities Extremity abnormal: other (left foot bandage intact) Peripheral Pulses: within normal limits - Abdominal General gastrointestinal: Present: soft, non-tender, non-distended, normal bowel sounds - Integumentary Integumentary: Present: clear, warm, dry - Musculoskeletal Musculoskeletal: gait normal, strength equal bilaterally - Psychiatric Psychiatric: appropriate mood/affect, intact judgment & insight - Neurologic Neurologic: CNII-XII intact, moves all extremities Plan Activity: fall precautions Weight Bearing Status: Weight Bear as Tolerated Diet: diabetic Wound: per your surgeon's advice Follow up with: PRIMARY CARE, [Primary Care Provider] - 3-5 Days Prescriptions: Insulin NPH/Regular [NovoLIN 70/30] 20 unit SQ BIDDIAB #1 vial
== END 2017-11-28 20:30 | disposition home or self-care (01) | DRG 255 ==
LOC: ED 16:01 → 3A 19:29 → CC1 11-22 01:26 → 4A 11-22 09:44 → 3A 11-22 21:06
PROVIDERS: ADMIT Internal Medicine; ATTEND Internal Medicine
PROC: 3E0234Z Introduction of Serum, Toxoid and Vaccine into Muscle, Percutaneous Approach (ICD-10-PCS; 2017-11-23)
PROC: 0Y6W0Z0 Detachment at Left 4th Toe, Complete, Open Approach (ICD-10-PCS; principal; 2017-11-27)
PROC: 0Y6Y0Z0 Detachment at Left 5th Toe, Complete, Open Approach (ICD-10-PCS; 2017-11-27)
DX: E11.52 Type 2 diabetes mellitus with diabetic peripheral angiopathy with gangrene (principal); N17.0 Acute kidney failure with tubular necrosis; A48.0 Gas gangrene; L03.116 Cellulitis of left lower limb; I16.1 Hypertensive emergency; E87.2 Acidosis; M86.172 Other acute osteomyelitis, left ankle and foot; M85.80 Other specified disorders of bone density and structure, unspecified site; E11.22 Type 2 diabetes mellitus with diabetic chronic kidney disease; I12.9 Hypertensive chronic kidney disease with stage 1 through stage 4 chronic kidney disease, or unspecified chronic kidney disease; N18.9 Chronic kidney disease, unspecified; R80.9 Proteinuria, unspecified; E87.6 Hypokalemia; E83.51 Hypocalcemia; Z79.4 Long term (current) use of insulin; Z79.899 Other long term (current) drug therapy; Z23 Encounter for immunization; Z86.718 Personal history of other venous thrombosis and embolism
CPT/HCPCS: 36415; 76770; 80048; 80074; 82140; 82570; 82962; 83036; 84156; 84165; 84166; 84300; 85007; 85025; 85652; 86021; 86140; 86160; 86225; 87040; 88305; 88311; 90686; 93922; 93925; J0295; J0360; J1100; J1815; J1818; J2001; J2250; J2405; J2704; J3010; J3370; J7030; J7040; J7050

== ENCOUNTER 2020-10-13 10:04 | Emergency (ER) | payer MEDICAID, SELFPAY ==
--- NOTE | 2020-10-13 10:54 | Emergency Department Report ---
HPI - General Time Seen by Provider: 10/13/20 10:40 - HPI HPI: Room 37 The patient is a 49-year-old male present with a chief complaint of hypoglycemia. The patient does not recall the circumstances leading to him being brought to the emergency department with states he was home with family and his blood sugar dropped. Family found the patient conscious but altered in his bed. EMS was called and found the patient with an Accu-Chek of 17. EMS administered D50. In the ED the patient's Accu-Chek was 64 and the patient denies complaints stating he is ready to go home. Patient has a history of end- stage renal disease and states he has not had dialysis since 10/07/2020. The patient states he missed his previous appointments because his blood sugar was dropping ED Past Medical Hx - Past Medical History Hx Hypertension: Yes Hx Diabetes: Yes (11-12 yr of age) Hx Renal Disease: Yes (ESRD Q MWF) Additional medical history: left foot pain/gangrene toes - Surgical History Additional Surgical History: Left ankle surgery - Family History Family history: no significant - Social History Smoking Status: Former Smoker (None x1 year) Substance Use Type: None (Denies illicit drug use) - Medications Home Medications: Home Medications Medication Instructions Recorded Confirmed Last Taken Type Acetaminophen [Acetaminophen TAB] 325 mg PO Q6H PRN #30 tablet 10/11/17 11/21/17 Unknown Rx Detemir (Nf) [Levemir (Nf)] 10 units SUB-Q QHS #30 day 10/11/17 11/21/17 Unknown Rx HYDROcodone/APAP 5-325 [[place] 1 each PO Q4H PRN #20 tablet 10/11/17 11/21/17 Unknown Rx 5-325 mg TAB] Insulin Aspart (Nf) [NovoLOG 1 dose SQ AC #1 pen 10/11/17 11/21/17 Unknown Rx Flexpen] Clopidogrel [Plavix] 75 mg PO DAILY 11/21/17 11/21/17 Unknown History amLODIPine 10 mg PO DAILY 11/21/17 11/21/17 Unknown History lisinopriL [Zestril TAB] 10 mg PO DAILY 11/21/17 11/21/17 Unknown History Insulin NPH/Regular [NovoLIN 70/30] 20 unit SQ BIDDIAB #1 vial 11/28/17 Unknown Rx ED Review of Systems ROS: Stated complaint: LOW BLOOD SUGAR Other details as noted in HPI Constitutional: no symptoms reported Eyes: denies: eye pain ENT: denies: throat pain Respiratory: no symptoms reported Cardiovascular: denies: chest pain Endocrine: other (Hypoglycemia) Gastrointestinal: denies: abdominal pain Genitourinary: denies: testicular pain Musculoskeletal: denies: back pain Neurological: denies: headache Physical Exam - Physical Exam Physical Exam: GENERAL: The patient is well-developed well-nourished male lying on stretcher not appearing to be in acute distress. [] HEENT: Normocephalic. Atraumatic. Extraocular motions are intact. Patient has moist mucous membranes. NECK: Supple. Trachea midline CHEST/LUNGS: Clear to auscultation. There is no respiratory distress noted. HEART/CARDIOVASCULAR: Regular. There is no tachycardia. There is no gallop rub or murmur. ABDOMEN: Abdomen is soft, nontender. Patient has normal bowel sounds. There is no abdominal distention. SKIN: There is no rash. There is no edema. There is no diaphoresis. NEURO: The patient is awake, alert, and oriented. The patient is cooperative. The patient has normal speech MUSCULOSKELETAL: There is no evidence of acute injury. ED Course - Reevaluation(s) Reevaluation #1: 10/13/20 13:46 Glucose 137 ED Medical Decision Making - Lab Data Result diagrams: 10/13/20 11:50 10/13/20 11:50 Laboratory Tests 10/13/20 10/13/20 10/13/20 10:24 11:50 11:50 WBC 6.4 RBC 3.92 Hgb 12.7 Hct 38.1 MCV 97 H MCH 32 MCHC 33 RDW 16.2 H Plt Count 217 Lymph % (Auto) 5.1 L [place] % (Auto) 7.9 H Eos % (Auto) 0.6 Baso % (Auto) 1.2 Lymph # (Auto) 0.3 L [place] # (Auto) 0.5 Eos # (Auto) 0.0 Baso # (Auto) 0.1 Seg Neutrophils % 85.2 H Seg Neutrophils # 5.4 Sodium 139 Potassium 5.1 H Chloride 99.0 Carbon Dioxide 25 Anion Gap 20 BUN 57 H Creatinine 8.3 H Estimated GFR 7 BUN/Creatinine Ratio 7 Glucose 110 H POC Glucose 64 L Calcium 8.7 10/13/20 11:57 WBC RBC Hgb Hct MCV MCH MCHC RDW Plt Count Lymph % (Auto) [place] % (Auto) Eos % (Auto) Baso % (Auto) Lymph # (Auto) [place] # (Auto) Eos # (Auto) Baso # (Auto) Seg Neutrophils % Seg Neutrophils # Sodium Potassium Chloride Carbon Dioxide Anion Gap BUN Creatinine Estimated GFR BUN/Creatinine Ratio Glucose POC Glucose 95 Calcium - Differential Diagnosis Hypoglycemia Critical care attestation.: If time is entered above; I have spent that time in minutes in the direct care of this critically ill patient, excluding procedure time. ED Disposition Clinical Impression: Hypoglycemia, ESRD (end stage renal disease) Disposition: - TO HOME OR SELFCARE Is pt being admited?: No Does the pt Need Aspirin: No Condition: Stable Instructions: Hypoglycemia, [id number] Additional Instructions: Return to the emergency department should you develop worsening symptoms, inability to tolerate food or liquids, high fever or any other concerns Time of Disposition: 13:47
[2020-10-13 12:06] LABS: Basophils # (Auto) 0.1 K/mm3 (0.0-0.1); Basophils % (Auto) 1.2 % (0.0-1.8); Eosinophils % (Auto) 0.6 % (0.0-4.3); Hematocrit 38.1 % (35.5-45.6); Hemoglobin 12.7 gm/dl (11.8-15.2); Lymphocytes # (Auto) 0.3 K/mm3 (1.2-5.4); Lymphocytes % (Auto) 5.1 % (13.4-35.0); Mean Corpuscular HGB Conc 33 % (32-34); Mean Corpuscular Volume 97 fl (84-94); Monocytes # (Auto) 0.5 K/mm3 (0.0-0.8); Monocytes % (Auto) 7.9 % (0.0-7.3); Platelet Count 217 K/mm3 (140-440); Red Blood Count 3.92 M/mm3 (3.65-5.03); Red Cell Distribution Width 16.2 % (13.2-15.2)
[2020-10-13 12:25] LABS: Calcium 8.7 mg/dL (8.4-10.2)
[2020-10-13] MEDS ORDERED: SODIUM POLYSTYRENE 15 GM/60 ML ORAL LIQD PO ONE (13:45)
[2020-10-13 14:09] VITALS: BP 170/105
== END 2020-10-13 14:10 | disposition home or self-care (01) ==
LOC: ED 10:04
DX: I12.0 Hypertensive chronic kidney disease with stage 5 chronic kidney disease or end stage renal disease (principal); N18.6 End stage renal disease; E11.65 Type 2 diabetes mellitus with hyperglycemia; E11.22 Type 2 diabetes mellitus with diabetic chronic kidney disease; Z79.899 Other long term (current) drug therapy; Z87.891 Personal history of nicotine dependence; Z98.890 Other specified postprocedural states
CPT/HCPCS: 36415; 80048; 82962; 85025

== ENCOUNTER 2021-08-03 20:19 | Emergency (ER) | payer MEDICAID ==
[~2021-08-03 20:19] MED LIST: EPINEPHrine 1 MG/10 ML SYRINGE ONE; LIDOCAINE PF 100 MG/5 ML (CARDIAC SYRINGE) IV ONE; SODIUM BICARB 8.4% 50 MEQ/50 ML SYRINGE IV ONE
--- NOTE | 2021-08-03 22:07 | Emergency Department Report ---
ED CPR HPI - General Stated Complaint: CARDIAC ARREST Time Seen by Provider: 08/03/21 20:19 Source: family, EMS, old records reviewed Mode of arrival: Stretcher Limitations: Altered Mental Status, Physical Limitation - History of Present Illness Initial Comments: 50-year-old male with a past medical history diabetes, hypertension, end-stage renal disease on dialysis Monday, Monday, Monday presents to the hospital and cardiopulmonary arrest. EMS received call at 19: 38 and one seen 10 minutes later. Arrival to the ED at 20: 15. Family states that for the last 3 days patient has been having low glucose, blood pressure, been weak and lightheaded. He was seen 5 minutes before being found pulseless on the floor. Last dialysis was yesterday EMS states initial rhythm was asystole. Patient received four epinephrines, one sodium bicarb, two defibrillations for be fib/V. tach, and had a Mitch airway placed. Patient presents pulseless with initial V. tach rhythm. No return of spontaneous circulation prior to arrival Patient's Accu-Chek was in the 130s as per EMS - Related Data Home Medications Medication Instructions Recorded Confirmed Last Taken Clopidogrel [Plavix] 75 mg PO DAILY 11/21/17 11/21/17 Unknown amLODIPine 10 mg PO DAILY 11/21/17 11/21/17 Unknown lisinopriL [Zestril TAB] 10 mg PO DAILY 11/21/17 11/21/17 Unknown Previous Rx's Medication Instructions Recorded Last Taken Type Acetaminophen [Acetaminophen TAB] 325 mg PO Q6H PRN #30 tablet 10/11/17 Unknown Rx Detemir (Nf) [Levemir (Nf)] 10 units SUB-Q QHS #30 day 10/11/17 Unknown Rx HYDROcodone/APAP 5-325 [[place] 1 each PO Q4H PRN #20 tablet 10/11/17 Unknown Rx 5-325 mg TAB] Insulin Aspart (Nf) [NovoLOG 1 dose SQ AC #1 pen 10/11/17 Unknown Rx Flexpen] Insulin NPH/Regular [NovoLIN 70/30] 20 unit SQ BIDDIAB #1 vial 11/28/17 Unknown Rx Allergies Allergy/AdvReac Type Severity Reaction Status Date / Time No Known Allergies Allergy Unverified 10/07/17 07:41 ED Review of Systems ROS: Stated complaint: CARDIAC ARREST Other details as noted in HPI Comment: All other systems reviewed and negative ED Past Medical Hx - Past Medical History Hx Hypertension: Yes Hx Diabetes: Yes (11-12 yr of age) Hx Renal Disease: Yes (ESRD Q MWF) Additional medical history: left foot pain/gangrene toes - Surgical History Additional Surgical History: Left ankle surgery - Social History Smoking Status: Never Smoker - Medications Home Medications: Home Medications Medication Instructions Recorded Confirmed Last Taken Type Acetaminophen [Acetaminophen TAB] 325 mg PO Q6H PRN #30 tablet 10/11/17 11/21/17 Unknown Rx Detemir (Nf) [Levemir (Nf)] 10 units SUB-Q QHS #30 day 10/11/17 11/21/17 Unknown Rx HYDROcodone/APAP 5-325 [[place] 1 each PO Q4H PRN #20 tablet 10/11/17 11/21/17 Unknown Rx 5-325 mg TAB] Insulin Aspart (Nf) [NovoLOG 1 dose SQ AC #1 pen 10/11/17 11/21/17 Unknown Rx Flexpen] Clopidogrel [Plavix] 75 mg PO DAILY 11/21/17 11/21/17 Unknown History amLODIPine 10 mg PO DAILY 11/21/17 11/21/17 Unknown History lisinopriL [Zestril TAB] 10 mg PO DAILY 11/21/17 11/21/17 Unknown History Insulin NPH/Regular [NovoLIN 70/30] 20 unit SQ BIDDIAB #1 vial 11/28/17 Unknown Rx ED Physical Exam - Other Other exam information: General: Unresponsive Head: Atraumatic Eyes: Pupils fixed and dilated ENT: Pale tongue Neck: Normal appearance Chest: No spontaneous respirations, bilateral breath sounds with bagging via Mitch airway CV: Pulseless Abdomen: Soft Back: Normal inspection Extremity: Peripheral cyanosis Neuro: GCS 3 Psych: Unresponsive ED Course - Reevaluation(s) Reevaluation #1: 08/03/21 CPR continued upon patient arrival. He initially presented in V. tach and then deteriorated to PEA and asystole. Resuscitation efforts he received two defibrillations, epinephrine x2, sodium bicarb, lidocaine, and calcium. Despite resuscitation efforts patient's rhythm deteriorated to asystole. Time of 20: 30 ED Medical Decision Making - Medical Decision Making 50-year-old male presents to the hospital cardiopulmonary arrest. Patient did not respond to resuscitation efforts and deteriorated to asystole. Patient sister and nephew at in the ED states they were at the scene/home when symptoms occurred. They were informed of patient's provided collateral information and Critical Care Time: Yes Critical care time in (mins) excluding proc time.: 15 Critical care attestation.: If time is entered above; I have spent that time in minutes in the direct care of this critically ill patient, excluding procedure time. ED Disposition Clinical Impression: Cardiopulmonary arrest Disposition: 20 Is pt being admited?: No Time of Disposition: 20:45
== END 2021-08-04 06:28 ==
LOC: ED 20:19
DX: I46.9 Cardiac arrest, cause unspecified (principal); I95.9 Hypotension, unspecified; R53.1 Weakness; R42 Dizziness and giddiness; M31.4 Aortic arch syndrome [Takayasu]; I10 Essential (primary) hypertension; E11.8 Type 2 diabetes mellitus with unspecified complications; N18.6 End stage renal disease; Z98.890 Other specified postprocedural states
CPT/HCPCS: 92950; 99285; J0171; J2001